=== PATIENT | female | born 1950 | race Caucasian/White ===

== ENCOUNTER 2016-09-20 08:26 | Emergency (ER) | payer OTHER ==
[~2016-09-20] VITALS: Ht 152.4 cm; Wt 67.8 kg
[~2016-09-20 08:26] MED LIST: AMLO-110 PO; ATEN-173 PO; CALC1TAB56 PO; MISCTAB88 PO; NSNN50; PROB1TAB16 PO; PYRI100T4 PO; SALINE NASAL SPRAY INH; [UNRECOGNIZED DRUG - OTHER] PO
[2016-09-20 08:32] VITALS: TEMP 37.1; Ht 152.4 cm; Wt 67.8 kg
--- NOTE | 2016-09-20 08:56 | EMERGENCY ROOM VISIT NOTE ---
History Report prepared by Rianna: Will Lockwood Under the Supervision of: Dr. Cali Barrientos M.D. First contact with patient: 08:45 Chief Complaint: GI ASSESSMENT Stated Complaint: DIARRHEA/PAIN Nursing Triage Summary: pt reports loose stools intermittenly since the week before Surekha Saw PCP and told it was "GI bug" Pt reports last night she had loose stool with a little but of dark red blood History of Present Illness The patient is a 65 year old female who presents to the Emergency Room with complaints of persistent diarrhea for the past three weeks. The patient describes her stools as loose but not totally watery. The patient had a loose stool last night that contained blood. The patient has also been intermittently nauseous. She denies any fevers, chills, vomiting, or urinary symptoms. The patient has been able to eat and drink. She saw her PCP two weeks ago, who told her that she had a GI bug. She was told to drink a lot of fluids and take Imodium, which she has been doing. She was also told to consume a bland diet. The patient has not noticed a flare up of her symptoms after eating specific food groups. The patient has a history of diverticulosis. She has never had a diverticulitis episode. The patient follows up with Dr. Cortes, [employer] , for her diverticulosis. Source of History: patient Onset: three weeks Position: other (GI) Quality: other (loose stools) Timing: other (persistent) Associated Symptoms: + nausea, No chills, No fevers, No urinary symptoms, No vomiting Note: There was some blood in a stool last night. Review of Systems All systems have been listed, reviewed, and are negative other than those previously mentioned. Please see Additional Medical History Sheet. Past Medical & Surgical Medical Problems: (1) Hypertension Nos (2) Pneumonia, Organism Nos Surgical Problems: (1) H/O oophorectomy Family History Hypertension Pneumonia Stroke Social History Smoking Status: Never Smoker Alcohol Use: none Marital Status: single Housing Status: lives alone Occupation Status: employed Current/Historical Medications Scheduled Amlodipine (Norvasc), 5 MG PO HS Atenolol (Tenormin), 25 MG PO HS Calcium-Magnesium W/ Vitamin D (Citracal Calcium+D Slow R), 1 TAB PO QAM Misc Natural Products (Osteo Bi-Flex Triple Stre), 1 TAB PO QAM Mometasone Furoate (Nasal) (Nasonex), 2 SPRAY NA QAM Probiotic Product (Probiotic), 1 TAB PO BID Pyridoxine (Vitamin B6), 100 MG PO QAM [Stress Tab Vit], 1 TAB PO QAM Scheduled PRN [Saline Nasal [place]], 1 SPRAY INH DAILY PRN for PRN Allergies Coded Allergies: Penicillins (Verified Allergy, Mild, OTHER, 09/20/16) Sulfa Drugs (Verified Allergy, Mild, OTHER, 09/20/16) Erythromycin (Verified Allergy, Unknown, GI UPSET, 09/20/16) Moxifloxacin (Verified Allergy, Unknown, itching, 09/20/16) Physical Exam Vital Signs Date Time Temp Pulse Resp B/P Pulse Ox O2 Delivery O2 Flow Rate FiO2 09/20/16 12:57 71 18 148/81 96 09/20/16 10:17 65 18 153/72 96 Room Air 09/20/16 08:32 37.1 69 18 156/80 96 Room Air Physical Exam GENERAL: Patient awake, alert, oriented x 3. Patient follows commands. Patient does not appear toxic. Patient is adequately hydrated and well- nourished. SKIN: No erythema, pallor, cyanosis or rash HEENT: Normal head, pupils equal, reactive to light and accommodation. Oral cavity and posterior pharynx appear normal. Neck: Without adenopathy, no neck vein distention. LUNGS: Clear to auscultation. No wheezes, no rales, no rhonchi. HEART: No murmurs. No gallops. No rubs ABDOMEN: No masses, no rebound, no hepatomegaly or splenomegaly. EXTREMITIES: No signs of trauma. No pedal or pretibial edema. No calf or thigh tenderness. NEUROLOGIC: Cranial nerves II-XII within normal limits. No gross motor sensory function deficits. Medical Decision & Procedures Laboratory Results 09/20/16 08:50 09/20/16 08:50 Test 09/20/16 08:50 09/20/16 09:35 Red Blood Count 5.06 M/uL (4.2-5.4) Mean Corpuscular Volume 90.9 fL (80-100) Mean Corpuscular Hemoglobin 32.4 pg (25-34) Mean Corpuscular Hemoglobin Concent 35.7 g/dl (32-36) RDW Standard Deviation 43.2 fL (36.4-46.3) RDW Coefficient of Variation 13.1 % (11.5-14.5) Mean Platelet Volume 9.8 fL (7.4-10.4) Anion Gap 10.0 mmol/L (3-11) Est Creatinine Clear Calc Drug Dose 62.6 ml/min Estimated GFR () 93.9 Estimated GFR (Non- 81.0 BUN/Creatinine Ratio 19.1 (10-20) Calcium Level 9.5 mg/dl (8.5-10.1) Urine Color YELLOW Urine Appearance CLEAR (CLEAR) Urine pH 7.0 (4.5-7.5) Urine Specific [place] 1.011 (1.000-1.030) Urine Protein NEG (NEG) Urine Glucose (UA) NEG (NEG) Urine Ketones NEG (NEG) Urine Occult Blood NEG (NEG) Urine Nitrite NEG (NEG) Urine Bilirubin NEG (NEG) Urine Urobilinogen NEG (NEG) Urine Leukocyte Esterase NEG (NEG) Laboratory results as stated above per my review. ED Course 0846: Past medical records reviewed. The patient was evaluated in room B7. A complete history and physical examination was performed. 1116: The patient has not been able to have a bowel movement since she arrived. She will get something to eat. 1250: The patient was not able to have a bowel movement. She was be discharged with a stool specimen container. Medical Decision I considered multiple diagnoses including viral vs bacterial gastroenteritis, metabolic disorder, UTI, dehydration, diverticulitis. Labs and urinalysis were obtained. The patient was unable to provide a stool specimen. She will be sent home with a specimen container. The patient has had Campylobacter in the past and this may be another episode of the same. It is also likely that she has a viral cause for her symptoms. There will be no change in her medications at this point. We await the culture and C. difficile antigen. The patient is to follow-up with her family physician. Impression Primary Impression: Diarrhea Scribe Attestation The scribe's documentation has been prepared under my direction and personally reviewed by me in its entirety. I confirm that the note above accurately reflects all work, treatment, procedures, and medical decision making performed by me. Departure Information Dispostion Home / Self-Care Referrals Krys Hobson (PCP) Forms HOME CARE DOCUMENTATION FORM, IMPORTANT VISIT INFORMATION Patient Instructions A Signature Page, My [facility] [employer] Additional Instructions Drink extra fluids. Bring in a stool specimen as soon as possible. Follow-up with your family physician.
[2016-09-20 09:17] LABS: MEAN CELL VOLUME 90.9 fL (80-100); MEAN CORPUSCULAR HEMOGLOBIN 32.4 pg (25-34); MEAN CORPUSCULAR HGB CONC 35.7 g/dl (32-36); MEAN PLATELET VOLUME 9.8 fL (7.4-10.4); PLATELET COUNT 266 K/uL (130-400); RED BLOOD COUNT 5.06 M/uL (4.2-5.4); WHITE BLOOD COUNT 7.11 K/uL (4.8-10.8)
[2016-09-20 09:32] LABS: BUN/CREATININE RATIO 19.1 (10-20); CALCIUM 9.5 mg/dl (8.5-10.1); CREATININE 0.77 mg/dl (0.60-1.20); POTASSIUM 4.1 mmol/L (3.5-5.1)
[2016-09-20 09:48] LABS: URINE APPEARANCE CLEAR (CLEAR); URINE BILIRUBIN NEG (NEG); URINE COLOR YELLOW; URINE NITRITE NEG (NEG); URINE SPECIFIC GRAVITY 1.011 (1.000-1.030); UROBILINOGEN NEG (NEG); ZZUR CULT IF INDIC CLEAN CATCH NO
[2016-09-20 09:51] LABS: MANUAL MICROSCOPIC REQUIRED? NO; REVIEW REQ? NO
[2016-09-20 12:57] VITALS: BP 148/81; PULSE 71; O2SAT 96
== END 2016-09-20 12:58 | disposition home or self-care (01) ==
LOC: C.EDB 08:27
DX: R19.7 Diarrhea, unspecified (principal); I10 Essential (primary) hypertension; Z87.01 Personal history of pneumonia (recurrent); Z98.890 Other specified postprocedural states; Z82.49 Family history of ischemic heart disease and other diseases of the circulatory system; Z82.3 Family history of stroke; Z88.0 Allergy status to penicillin; Z88.2 Allergy status to sulfonamides

== ENCOUNTER → 2016-09-23 | Outpatient (CLI) | payer OTHER ==
[~2016-09-23] MED LIST changes: +CEPH500C PO; +MOME6000 NAE; +MULTTAB94 PO; +PHEN-876 PO; +SALI0.6510
== END | disposition home or self-care (01) ==
LOC: C.LABSPEC 10:21
PROVIDERS: ATTEND Emergency Medicine
DX: R19.7 Diarrhea, unspecified (principal)

== ENCOUNTER 2016-11-03 00:06 | Emergency (ER) | payer OTHER ==
[~2016-11-03] VITALS: Ht 152.4 cm; Wt 68.8 kg
[~2016-11-03 00:06] MED LIST changes: -CEPH500C PO; -MOME6000 NAE; -MULTTAB94 PO; -PHEN-876 PO; -SALI0.6510
[2016-11-03 00:14] VITALS: TEMP 37.5; Ht 152.4 cm; Wt 68.8 kg
[2016-11-03 02:12] LABS: BASO % 0.2 %; BASO ABS # 0.02 K/uL (0-0.2); COMPLETE YES; EOS % 1.2 %; IG% 0.2 %; LYMPH % 19.7 %; LYMPH ABS # 1.62 K/uL (1.2-3.4); MEAN CELL VOLUME 93.8 fL (80-100); MEAN CORPUSCULAR HEMOGLOBIN 32.5 pg (25-34); MEAN CORPUSCULAR HGB CONC 34.7 g/dl (32-36); MEAN PLATELET VOLUME 9.6 fL (7.4-10.4); MONO % 7.7 %; PLATELET COUNT 325 K/uL (130-400); WHITE BLOOD COUNT 8.21 K/uL (4.8-10.8)
[2016-11-03 02:16] LABS: ALT/SGPT 38 U/L (12-78); AST/SGOT 24 U/L (15-37); BLOOD UREA NITROGEN 24 mg/dl (7-18); CALCIUM 8.5 mg/dl (8.5-10.1); CARBON DIOXIDE 28 mmol/L (21-32); CHLORIDE 109 mmol/L (98-107); CREATININE 0.97 mg/dl (0.60-1.20); GLUCOSE 187 mg/dl (70-99); POTASSIUM 4.3 mmol/L (3.5-5.1); SODIUM 145 mmol/L (136-145)
[2016-11-03 02:27] LABS: ALKALINE PHOSPHATASE 75 U/L (45-117); CKMB/CK RATIO 2.1 (0-3.0)
[2016-11-03] MEDS ORDERED: SALI0.6510 (02:35)
[2016-11-03] MEDS ORDERED: MOME6000 NAE (02:35)
[2016-11-03] MEDS ORDERED: MULTTAB94 PO (02:36)
[2016-11-03] MEDS ORDERED: SODIUM CHLORIDE 0.9% 500ML 500 ML IV STA (04:29)
--- NOTE | 2016-11-03 06:04 | EMERGENCY ROOM VISIT NOTE ---
History Report prepared by Rianna: Raz Avendaño Under the Supervision of: Dr. Ladi Santos D.O. First contact with patient: 01:34 Chief Complaint: IRREGULAR HEARTBEAT Stated Complaint: IRRATIC HEARTBEAT,EXCITEABILITY Nursing Triage Summary: pt c/o irregular heart beat around 2100 tonight which has resolved, pt states a couple weeks ago had upper resp infection andhad antibiotics took all of them and 3 days after the end of them she developed a low grade fever and cough History of Present Illness The patient is a 65 year old female who presents to the Emergency Room with complaints of an episode of heart palpitations occurring shortly prior to arrival. She states that she went through her day today as normal, and began experiencing her symptoms shortly before she went to bed. She notes that she felt extremely "nervous" and "jumpy". The patient has a history of similar symptoms. She notes that she has been getting over a URI recently and finished her second antibiotic treatment a little over a week ago. Her symptoms included a cough and fever. She states that she continues to have her cough. The patient also complains of abnormal sensations in her throat. She denies any abdominal pain, abnormal SOB, or chest pain. Source of History: patient Onset: Shortly prior to arrival Quality: other (palpitations) Timing: other (episode) Associated Symptoms: + cough, No SOB, No abdominal pain, No chest pain Note: The patient also complains of abnormal sensations in her throat. Review of Systems See HPI for pertinent positives & negatives. A total of 10 systems reviewed and were otherwise negative. Past Medical & Surgical Medical Problems: (1) Hypertension Nos (2) Pneumonia, Organism Nos Surgical Problems: (1) H/O oophorectomy Family History Hypertension Pneumonia Stroke Social History Smoking Status: Never Smoker Alcohol Use: none Marital Status: single Housing Status: lives alone Occupation Status: employed Current/Historical Medications Scheduled Amlodipine (Norvasc), 5 MG PO HS Atenolol (Tenormin), 25 MG PO HS Calcium-Magnesium W/ Vitamin D (Citracal Calcium+D Slow R), 1 TAB PO QAM Misc Natural Products (Osteo Bi-Flex Triple Stre), 1 TAB PO QAM Mometasone Furoate (Nasal) (Mometasone Furoate), 2 SPRAYS VICENTA DAILY Multiple Vitamin (Stress Formula), 1 TAB PO DAILY Probiotic Product (Probiotic), 1 TAB PO BID Pyridoxine (Vitamin B6), 100 MG PO QAM Scheduled PRN Saline ([employer] Nasal [place]), 1 SPRAYS NA UD PRN for Nasal Congestion Allergies Coded Allergies: Penicillins (Verified Allergy, Mild, OTHER, 11/03/16) Sulfa Drugs (Verified Allergy, Mild, OTHER, 11/03/16) Erythromycin (Verified Allergy, Unknown, GI UPSET, 11/03/16) Moxifloxacin (Verified Allergy, Unknown, itching, 11/03/16) Physical Exam Vital Signs Date Time Temp Pulse Resp B/P Pulse Ox O2 Delivery O2 Flow Rate FiO2 11/03/16 06:17 72 18 124/84 98 11/03/16 05:37 69 16 130/73 96 Room Air 11/03/16 04:00 79 18 151/68 93 Room Air 11/03/16 03:30 79 18 106/58 98 Room Air 11/03/16 01:23 89 11/03/16 01:18 89 18 143/81 96 Room Air 11/03/16 00:14 37.5 93 18 149/76 95 Room Air Physical Exam HEENT: Head - normocephalic and atraumatic Pupils are equal, round, and reactive to light. Extraocular eye muscles are intact, and sclera are anicteric. Nose - moist nasal mucosa without discharge. Mouth - moist buccal mucosa. Oropharynx is nonerythematous and there is no tonsillar exudate or edema noted. Neck: Supple; no JVD, nuchal rigidity, cervical lymphadenopathy, or auscultated bruits. Heart: Regular rate and rhythm. There is a normal S1 and S2 with no murmurs, clicks, or gallops appreciated. Lungs: Clear to auscultation bilaterally with no wheezes, rales, or rhonchi. Abdomen: Soft, completely nontender, nondistended, with good bowel sounds. There are no palpable pulsatile masses or hepatosplenomegaly. There is no guarding, rigidity, or rebound noted. Extremities: No evidence of cyanosis, clubbing, or edema. There are easily palpable peripheral pulses. Skin: warm and dry with good turgor and no rashes. Medical Decision & Procedures ER Provider Diagnostic Interpretation: Two View Chest X-ray interpreted by me: No pulmonary infiltrates. No pleural effusions. Unchanged from previous films. Laboratory Results 11/03/16 01:27 Red Blood Count 4.80, Mean Corpuscular Volume 93.8, Mean Corpuscular Hemoglobin 32.5, Mean Corpuscular Hemoglobin Concent 34.7, Mean Platelet Volume 9.6, Neutrophils (%) (Auto) 71.0, Lymphocytes (%) (Auto) 19.7, Monocytes (%) (Auto) 7.7, Eosinophils (%) (Auto) 1.2, Basophils (%) (Auto) 0.2, Neutrophils # (Auto) 5.82, Lymphocytes # (Auto) 1.62, Monocytes # (Auto) 0.63, Eosinophils # (Auto) 0.10, Basophils # (Auto) 0.02 11/03/16 01:27 Test 11/03/16 01:27 White Blood Count 8.21 K/uL (4.8-10.8) Red Blood Count 4.80 M/uL (4.2-5.4) Hemoglobin 15.6 g/dL (12.0-16.0) Hematocrit 45.0 % (37-47) Mean Corpuscular Volume 93.8 fL (80-100) Mean Corpuscular Hemoglobin 32.5 pg (25-34) Mean Corpuscular Hemoglobin Concent 34.7 g/dl (32-36) Platelet Count 325 K/uL (130-400) Mean Platelet Volume 9.6 fL (7.4-10.4) Neutrophils (%) (Auto) 71.0 % Lymphocytes (%) (Auto) 19.7 % Monocytes (%) (Auto) 7.7 % Eosinophils (%) (Auto) 1.2 % Basophils (%) (Auto) 0.2 % Neutrophils # (Auto) 5.82 K/uL (1.4-6.5) Lymphocytes # (Auto) 1.62 K/uL (1.2-3.4) Monocytes # (Auto) 0.63 K/uL (0.11-0.59) Eosinophils # (Auto) 0.10 K/uL (0-0.5) Basophils # (Auto) 0.02 K/uL (0-0.2) RDW Standard Deviation 45.1 fL (36.4-46.3) RDW Coefficient of Variation 13.1 % (11.5-14.5) Immature Granulocyte % (Auto) 0.2 % Immature Granulocyte # (Auto) 0.02 K/uL (0.00-0.02) Anion Gap 8.0 mmol/L (3-11) Est Creatinine Clear Calc Drug Dose 50.0 ml/min Estimated GFR () 71.0 Estimated GFR (Non- 61.3 BUN/Creatinine Ratio 25.0 (10-20) Calcium Level 8.5 mg/dl (8.5-10.1) Total Bilirubin 0.3 mg/dl (0.2-1) Direct Bilirubin 0.1 mg/dl (0-0.2) Aspartate Amino Transf (AST/SGOT) 24 U/L (15-37) Alanine Aminotransferase (ALT/SGPT) 38 U/L (12-78) Alkaline Phosphatase 75 U/L (45-117) Total Creatine Kinase 179 U/L (26-192) Creatine Kinase MB 3.7 ng/ml (0.5-3.6) Creatine Kinase MB Ratio 2.1 (0-3.0) Troponin I < 0.015 ng/ml (0-0.045) Pro-B-Type Natriuretic Peptide 316 pg/ml (0-900) Total Protein 6.7 gm/dl (6.4-8.2) Albumin 3.6 gm/dl (3.4-5.0) Thyroid Stimulating Hormone (TSH) 1.270 uIu/ml (0.300-4.500) Laboratory results per my review. Medications Administered Medications (Trade) Dose Ordered Sig/Taty Route Start Time Stop Time Status Last Admin Dose Admin Sodium Chloride (Nss 500ml) 500 ml @ 999 mls/hr Q31M STAT IV 11/03/16 04:29 11/03/16 04:59 DC 11/03/16 04:35 999 MLS/HR Procedure Medications include: NSS IV. ECG Indication: palpitations Rate (beats per minute): 97 Rhythm: normal sinus Findings: no acute ischemic change, no ectopy ED Course 0146: Past medical records reviewed. The patient was evaluated in room A2. A complete history and physical exam was performed. An IV lock was initiated and labs are drawn as above. Twelve-lead EKG was obtained as described above. A chest x-ray was obtained 0429: Ordered NSS 500 mL @ 999 mL/hr IV. 0432: I reassessed the patient. She is feeling better. She notes that she has a history of borderline diabetes. 0440: I discussed findings and results with the patient. She verbalized agreement of the treatment plan. The patient was discharged home. Medical Decision The patient is a 65 year old female who presents to the ED with an episode of heart palpitations. Differential diagnosis includes dehydration, cardiac dysrhythmia, CHF, anxiety, as well as other etiologies were considered. Laboratory studies: Normal white count. Stable H&H. Glucose of 187. BUN of 24. Creatinine of 0.9. LFTs are normal. TSH and cardiac enzymes are normal. This is a 65-year-old female patient who presents with palpitations. She does admit to some anxiety. She has had a cough for the past month. She has taken 2 courses of antibiotics with no relief. The patient was noted to be hyperglycemic by laboratory testing. I have asked her to follow-up with her PCP for a fasting blood sugar and hemoglobin A1c. The patient was also encouraged to take more clear liquids to avoid dehydration. She was told to return here to the emergency department if symptoms worsened. Impression Primary Impression: Palpitation Additional Impression: Hyperglycemia Scribe Attestation The scribe's documentation has been prepared under my direction and personally reviewed by me in its entirety. I confirm that the note above accurately reflects all work, treatment, procedures, and medical decision making performed by me. Departure Information Dispostion Home / Self-Care Referrals Krys Hobson (PCP) Forms HOME CARE DOCUMENTATION FORM, IMPORTANT VISIT INFORMATION Patient Instructions ED Hyperglycemia New Susp Diabetes, ED Palpitations, My [facility] Additional Instructions Rest. Take plenty of clear liquids Follow up with PCP for a fasting blood sugar. Return to the ER for worsening symptoms Problem Qualifiers
[2016-11-03 06:17] VITALS: BP 124/84; PULSE 72; O2SAT 98
--- NOTE | 2016-11-03 07:40 | DIAGNOSTIC IMAGING REPORT ---
CHEST 2 VIEWS ROUTINE CLINICAL HISTORY: Shortness of breath COMPARISON STUDY: 07/08/2013 FINDINGS: The chest has an emphysematous configuration. The heart is normal in size. There is an air-containing retrocardiac opacity consistent with a hiatal hernia. There is no lobar consolidation. There are areas of subsegmental atelectasis within the right middle lobe and lingula.[ IMPRESSION: 1. Emphysema 2. Hiatal hernia 3. Bilateral atelectatic changes 4. No evidence of lobar consolidation Electronically signed by: Dimitry Parker M.D. 11/03/2016 7:39 AM Dictated Date/Time: 11/03/2016 7:38 AM
== END 2016-11-03 06:18 | disposition home or self-care (01) ==
LOC: C.ED 00:07 → C.EDA 06:18
DX: R00.2 Palpitations (principal); R73.9 Hyperglycemia, unspecified; Z87.01 Personal history of pneumonia (recurrent); I10 Essential (primary) hypertension; Z90.721 Acquired absence of ovaries, unilateral; Z82.49 Family history of ischemic heart disease and other diseases of the circulatory system; Z82.3 Family history of stroke; Z88.0 Allergy status to penicillin; Z88.2 Allergy status to sulfonamides; Z88.1 Allergy status to other antibiotic agents

== ENCOUNTER → 2016-11-06 | Outpatient (CLI) | payer OTHER ==
[~2016-11-06] MED LIST changes: +CEPH500C PO; +MOME6000 NAE; +MULTTAB94 PO; -NSNN50; +PHEN-876 PO; +SALI0.6510; -SALINE NASAL SPRAY INH; -[UNRECOGNIZED DRUG - OTHER] PO
[2016-11-06 12:34] LABS: ESTIMATED AVERAGE GLUCOSE 137 mg/dl; HA1C FLAG Normal (Normal)
== END | disposition home or self-care (01) ==
LOC: C.LABPVFM 07:35
PROVIDERS: ATTEND Internal Medicine
DX: R73.9 Hyperglycemia, unspecified (principal)

== ENCOUNTER 2017-05-02 11:13 | Emergency (ER) | payer OTHER ==
[~2017-05-02] VITALS: Ht 152.4 cm; Wt 67.0 kg
[~2017-05-02 11:13] MED LIST changes: -CEPH500C PO; -PHEN-876 PO
[2017-05-02 11:19] VITALS: Ht 152.4 cm; Wt 67.0 kg
[2017-05-02] MEDS ORDERED: PHENAZOPYRIDINE HCL 200 MG TAB PO STA (11:31)
--- NOTE | 2017-05-02 11:39 | EMERGENCY ROOM VISIT NOTE ---
History Report prepared by Rianna: Arianna Barron Under the Supervision of: Dr. Valdez Heaton M.D. First contact with patient: 11:25 Chief Complaint: URINARY SYMPTOMS Stated Complaint: FREQUENT URINATION/BLEEDING Nursing Triage Summary: Urinary frequency, burning, and hematuria. History of Present Illness The patient is a 66 year old female who presents to the Emergency Room with complaints of persistent, worsening urinary symptoms that began nine hours ago. The patient reports that she woke around 0200 this morning and began experiencing urinary frequency. She states that the frequency and urgency continued to worsen to going every 30 minutes. The patient states that she had the sensation that she needed to urinate, but could not. She additionally reports noticing blood on her tissue with wiping and some in the toilet. The patient reports burning with urination. She denies taking anything for her symptoms. The patient denies any fever, nausea, vomiting, or back pain. She denies getting UTIs often. The patient states that she has had elevated blood glucose tests in the past but denies being diagnosed diabetic. She states that she was recently treated for an upper respiratory infection in March, but denies being on any current antibiotics. Source of History: patient Onset: nine hours ago Position: other (global) Quality: other (urinary symptoms) Timing: worsening, other (persistent) Associated Symptoms: No fevers Review of Systems See HPI for pertinent positives & negatives. A total of 10 systems reviewed and were otherwise negative. Past Medical & Surgical Medical Problems: (1) Hypertension Nos (2) Pneumonia, Organism Nos Surgical Problems: (1) H/O oophorectomy Family History Hypertension Pneumonia Stroke Social History Smoking Status: Never Smoker Alcohol Use: none Marital Status: single Housing Status: lives alone Occupation Status: employed Current/Historical Medications Scheduled Amlodipine (Norvasc), 5 MG PO HS Atenolol (Tenormin), 25 MG PO HS Calcium-Magnesium W/ Vitamin D (Citracal Calcium+D Slow R), 1 TAB PO QAM Cephalexin Monohydrate (Keflex), 500 MG PO TID Misc Natural Products (Osteo Bi-Flex Triple Stre), 1 TAB PO QAM Mometasone Furoate (Nasal) (Mometasone Furoate), 2 SPRAYS VICENTA DAILY Multiple Vitamin (Stress Formula), 1 TAB PO DAILY Probiotic Product (Probiotic), 1 TAB PO BID Pyridoxine (Vitamin B6), 100 MG PO QAM Scheduled PRN Phenazopyridine HCl (Pyridium), 200 MG PO TID PRN for Frequency/Burning w/ Urination Saline ([place] Nasal [place]), 1 SPRAYS NA UD PRN for Nasal Congestion Allergies Coded Allergies: Penicillins (Verified Allergy, Mild, OTHER, 11/03/16) Sulfa Drugs (Verified Allergy, Mild, OTHER, 11/03/16) Erythromycin (Verified Allergy, Unknown, GI UPSET, 11/03/16) Moxifloxacin (Verified Allergy, Unknown, itching, 11/03/16) Physical Exam Vital Signs Date Time Temp Pulse Resp B/P (MAP) Pulse Ox O2 Delivery O2 Flow Rate FiO2 05/02/17 12:04 36.8 70 18 166/70 96 05/02/17 11:19 36.8 70 18 166/70 96 Room Air Physical Exam GENERAL: Patient is in no acute distress. HEENT: No acute trauma, normocephalic atraumatic, mucous membranes moist, no nasal congestion, no scleral icterus. NECK: No stridor, no adenopathy, no meningismus, trachea is midline. LUNGS: Clear to auscultation bilaterally, no wheeze, no rhonchi, breath sounds equal. HEART: Without murmurs gallops or rubs, regular rate and rhythm. ABDOMEN: Soft, nontender, bowel sounds positive, no hernias, no peritonitis. BACK: No flank discomfort with percussion EXTREMITIES: No cyanosis or edema, full range of motion of all the joints without pain or difficulty, no signs for acute trauma. NEUROLOGIC: Oriented x 3, no acute motor or sensory deficits, no focal weakness. SKIN: No rash, no jaundice, no diaphoresis. Medical Decision & Procedures Laboratory Results Test 05/02/17 11:20 Urine Color DK YELLOW Urine Appearance TURBID (CLEAR) Urine pH 5.0 (4.5-7.5) Urine Specific [place] 1.026 (1.000-1.030) Urine Protein 1+ (NEG) Urine Glucose (UA) NEG (NEG) Urine Ketones TRACE (NEG) Urine Occult Blood 3+ (NEG) Urine Nitrite POS (NEG) Urine Bilirubin NEG (NEG) Urine Urobilinogen NEG (NEG) Urine Leukocyte Esterase LARGE (NEG) Urine WBC (Auto) >30 /hpf (0-5) Urine RBC (Auto) >30 /hpf (0-4) Urine Hyaline Casts (Auto) 5-10 /lpf (0-5) Urine Epithelial Cells (Auto) 10-20 /lpf (0-5) Urine Bacteria (Auto) 1+ (NEG) Laboratory results reviewed by me. Medications Administered Medications (Trade) Dose Ordered Sig/Taty Route Start Time Stop Time Status Last Admin Dose Admin Phenazopyridine HCl (Pyridium Tab) 200 mg NOW STAT PO 05/02/17 11:31 05/02/17 11:33 DC 05/02/17 12:04 200 MG Cephalexin Monohydrate (Keflex Cap) 500 mg NOW STAT PO 05/02/17 11:55 05/02/17 11:57 DC 05/02/17 12:04 500 MG ED Course 1130: The patient was evaluated in room C1B. A complete history and physical exam was performed. 1131: Ordered Pyridium Tab 200 mg PO. 1153: I reevaluated the patient and she is resting. I discussed the exam findings with her and I discussed the treatment plan. She verbalized complete understanding and agreement. She is ready to go home. 1155: Ordered Keflex Cap 500 mg PO. Medical Decision The patient is a 66 year old female who presents to the ED with complaints of urinary symptoms. Differential diagnoses considered include UTI, diverticulitis , vaginal irritation, pyelonephritis, renal failure. The patient presents with urinary burning and frequency. Urinalysis suggests infection, urine culture is pending. The patient is not vomiting, there is no fever, she is not having back pain. The patient was given oral Pyridium and oral Keflex. She is being discharged on the same, if worsening, she can return. Medication Reconcilliation Current Medication List: was personally reviewed by me Blood Pressure Screening Patient's blood pressure: Elevated blood pressure Blood pressure disposition: Elevated BP felt to be situational, Did not require urgent referral Impression Primary Impression: UTI (urinary tract infection) Additional Impression: Hematuria Scribe Attestation The scribe's documentation has been prepared under my direction and personally reviewed by me in its entirety. I confirm that the note above accurately reflects all work, treatment, procedures, and medical decision making performed by me. Departure Information Dispostion Home / Self-Care Prescriptions Phenazopyridine HCl (Pyridium) 200 Mg Tab 200 MG PO TID Y for Frequency/Burning w/Urination, #6 TAB Prov: Valdez Heaton M.D. 05/02/17 Cephalexin Monohydrate (Keflex) 500 Mg Cap 500 MG PO TID for 7 Days, #21 CAP Prov: Valdez Heaton M.D. 05/02/17 Referrals Ginette Baca (PCP) Forms HOME CARE DOCUMENTATION FORM, IMPORTANT VISIT INFORMATION Patient Instructions My [facility] Additional Instructions fluids pyridium 3x per day for the burning and frequency kelex 3x per day for 1 week return if worsening return for fever, vomiting or if not improving Problem Qualifiers
[2017-05-02 11:44] LABS: URINE APPEARANCE TURBID (CLEAR); URINE BILIRUBIN NEG (NEG); URINE COLOR DK YELLOW; URINE NITRITE POS (NEG); URINE SPECIFIC GRAVITY 1.026 (1.000-1.030); UROBILINOGEN NEG (NEG); ZZUR CULT IF INDIC CLEAN CATCH YES
[2017-05-02 11:47] LABS: MANUAL MICROSCOPIC REQUIRED? NO; REVIEW REQ? NO
[2017-05-02] MEDS ORDERED: CEPHALEXIN MONOHYDRATE 250 MG CAP PO STA (11:55)
[2017-05-02] MEDS ORDERED: PHEN-876 PO (11:57)
[2017-05-02] MEDS ORDERED: CEPH500C PO (11:57)
[2017-05-02 12:04] VITALS: BP 166/70; PULSE 70; TEMP 36.8; O2SAT 96
== END 2017-05-02 12:05 | disposition home or self-care (01) ==
LOC: C.EDB 11:15 → C.EDC 12:05
DX: N39.0 Urinary tract infection, site not specified (principal); I10 Essential (primary) hypertension; Z87.01 Personal history of pneumonia (recurrent); Z90.722 Acquired absence of ovaries, bilateral; Z82.49 Family history of ischemic heart disease and other diseases of the circulatory system; Z82.3 Family history of stroke; Z79.899 Other long term (current) drug therapy

== ENCOUNTER → 2017-08-06 | Outpatient (CLI) | payer OTHER ==
[~2017-08-06] MED LIST changes: +PHEN-876 PO
== END | disposition home or self-care (01) ==
LOC: C.LABPVFM 12:52
PROVIDERS: ATTEND Physician Assistant
DX: R15.2 Fecal urgency (principal)

== ENCOUNTER → 2017-08-15 | Outpatient (CLI) | payer OTHER ==
[2017-08-15 12:49] LABS: BLOOD UREA NITROGEN 17 mg/dl (7-18); BUN/CREATININE RATIO 19.6 (10-20); CARBON DIOXIDE 32 mmol/L (21-32); CHLORIDE 105 mmol/L (98-107); CHOLESTEROL 176 mg/dl (0-200); CREATININE 0.88 mg/dl (0.60-1.20); GLUCOSE 123 mg/dl (70-99); POTASSIUM 4.1 mmol/L (3.5-5.1); SODIUM 139 mmol/L (136-145)
[2017-08-15 12:52] LABS: CHOLESTEROL/HDL RATIO 2.7; HDL CHOLESTEROL 65 mg/dl; LDL CHOLESTEROL CALCULATED 89 mg/dl; TRIGLYCERIDES 112 mg/dl (0-150); VERY LOW DENSITY LIPOPROT CALC 22 mg/dl
[2017-08-15 12:56] LABS: ESTIMATED AVERAGE GLUCOSE 128 mg/dl; HA1C FLAG Normal (Normal)
== END | disposition home or self-care (01) ==
LOC: C.LABPVFM 10:13
PROVIDERS: ATTEND Nurse Practitioner
DX: I49.9 Cardiac arrhythmia, unspecified (principal); R73.01 Impaired fasting glucose

== ENCOUNTER → 2017-08-24 | Outpatient (CLI) | payer OTHER | END | disposition home or self-care (01) | LOC: C.LABPVFM 11:49 | PROVIDERS: ATTEND Physician Assistant | DX: R19.7 Diarrhea, unspecified (principal) ==

== ENCOUNTER 2017-09-08 17:01 | Emergency (ER) | payer OTHER ==
[~2017-09-08] VITALS: Ht 152.4 cm; Wt 66.2 kg
[~2017-09-08 17:01] MED LIST changes: -AMLO-110 PO; +AMLO5TAB3 PO
[2017-09-08 17:03] VITALS: BP 162/81; PULSE 81; TEMP 37.1; O2SAT 96; Ht 152.4 cm; Wt 66.2 kg
--- NOTE | 2017-09-08 17:26 | EMERGENCY ROOM VISIT NOTE ---
History First contact with patient: 17:08 Chief Complaint: FALL Stated Complaint: FALL, HIT BACK AND HEAD History of Present Illness The patient is a 66 year old female who presents to the Emergency Room with complaints of back pain after having a fall prior to arrival. The patient slipped on a wooden floor landing flat on her back. She denies hitting her head. There is no loss of consciousness. The fall knocked the wind out of her. She currently denies any shortness of breath, but it is painful to take a deep breath. She denies any headache or neck pain. She is having pain over the mid back. She denies any low back pain. No abdominal pain. She denies any pain in her extremities. Review of Systems 6 system review negative. Please see pertinent positives in the history of present illness section. Past Medical/Surgical History Medical Problems: (1) Hypertension Nos (2) Pneumonia, Organism Nos Surgical Problems: (1) H/O oophorectomy Family History Hypertension Pneumonia Stroke Social History Smoking Status: Never Smoker Alcohol Use: none Marital Status: single Housing Status: lives alone Occupation Status: employed Current/Historical Medications Scheduled Amlodipine (Norvasc), 5 MG PO HS Atenolol (Tenormin), 25 MG PO HS Calcium-Magnesium W/ Vitamin D (Citracal Calcium+D Slow R), 1 TAB PO QAM Lidocaine (Lidoderm Patch 5%), 1 PATCH TD DAILY Misc Natural Products (Osteo Bi-Flex Triple Stre), 1 TAB PO QAM Mometasone Furoate (Nasal) (Mometasone Furoate), 2 SPRAYS VICENTA DAILY Multiple Vitamin (Stress Formula), 1 TAB PO DAILY Probiotic Product (Probiotic), 1 TAB PO DAILY Pyridoxine (Vitamin B6), 100 MG PO QAM Scheduled PRN Saline ([place] Nasal [place]), 1 SPRAY NA UD PRN for Nasal Congestion Tramadol (Ultram), 50 MG PO Q4H PRN for Pain Physical Exam Vital Signs Date Time Temp Pulse Resp B/P (MAP) Pulse Ox O2 Delivery O2 Flow Rate FiO2 09/08/17 17:03 37.1 81 17 162/81 96 Room Air Physical Exam VITALS: Vitals are noted on the nurse's note and reviewed by myself. Vital signs stable. GENERAL: 66-year-old female, in no acute distress, nondiaphoretic, well- developed well-nourished. SKIN: The skin was without rashes, erythema, edema, or bruising. HEAD: Normocephalic atraumatic. NECK: Full range of motion.. Cervical spine is nontender. No JVD. HEART: Regular rate and rhythm without murmurs gallops or rubs. LUNGS: Clear to auscultation bilaterally without wheezes, rales or rhonchi. No accessory muscle use. No tenderness elicited with palpation over the thorax. ABDOMEN: Positive bowel sounds x 4.Soft, nontender, without organomegaly. No guarding or rebound tenderness. MUSCULOSKELETAL: Mild tenderness to palpation over the thoracic spinous processes. Strength 5/5 throughout. NEURO: Patient was alert and oriented to person place and time. Normal sensation to touch. No focal neurological deficits. Medical Decision & Procedures ER Provider Diagnostic Interpretation: X-ray chest, bilateral ribs and thoracic spine IMPRESSION: 1. Negative right ribs. 2. Nondisplaced cortical fractures left sixth and seventh ribs. 3. Negative chest. The above report was generated using voice recognition software. It may contain grammatical, syntax or spelling errors. Patient Name: SAYDA MONTEJO Unit Number: [id number] Dictated: 09/08/171802 Transcribed: 09/08/17 180 MS Printed Date/Time: [~ rep prt dt]/[~ rep prt tm] [~ rep ct labl] - [~ rep ct ivnm] [facility] [place] [address] Dictated: 09/08/171802 Transcribed: 09/08/17 180 MS Printed Date/Time: [~ rep prt dt]/[~ rep prt tm] [~ rep ct labl] - [~ rep ct ivnm] IMPRESSION: Considerable degenerative disc change. Mild scoliosis. No acute process. Osteopenia. The above report was generated using voice recognition software. It may contain grammatical, syntax or spelling errors. Electronically signed by: Isra Hinojosa M.D. 09/08/2017 6:04 PM Dictated Date/Time: 09/08/2017 6:03 PM The status of this report is Signed. Draft = Not yet reviewed or approved by Radiologist. Signed = Reviewed and approved by Radiologist. <AttendingPhy></AttendingPhy> <FamilyPhy>Ashley Bray M.D.</FamilyPhy> < PrimaryPhy>Ashley Bray M.D.</PrimaryPhy> <UnitNumber>[id number]</UnitNumber > <VisitNumber>[id number]</VisitNumber> <PatientName>SAYDA MONTEJO</ PatientName> <DateOfBirth>1950</DateOfBirth> <Location>[facility]</Location> < ServiceDate>09/08/17</ServiceDate> <MNE>ESINDI</MNE> <OrderingPhy>Anayeli Poe PA-C</OrderingPhy> <OrderingPhyMNE>f rep ord dr mccabe</OrderingPhyMNE> < DictatingPhyMNE>f rep dict dr mccabe</DictatingPhyMNE> <CCListMNE>f rep ct mne</ CCListMNE> <AdmittingPhyMNE>f pt admit dr mccabe</AdmittingPhyMNE> <AttendingPhyMNE >f pt attend dr mccabe</AttendingPhyMNE> <ConsultingPhyMNE>f pt consult dr mccabe</ConsultingPhyMNE> <FamilyPhyMNE>f pt fam dr mccabe</FamilyPhyMNE> <OtherPhyMNE>f pt other dr mccabe</OtherPhyMNE> < PrimaryPhyMNE>f pt prim care dr mccabe</PrimaryPhyMNE> <ReferringPhyMNE>f pt referring dr mccabe</ReferringPhyMNE> Electronically signed by: Isra Hinojosa M.D. 09/08/2017 6:07 PM Dictated Date/Time: 09/08/2017 6:05 PM The status of this report is Signed. Draft = Not yet reviewed or approved by Radiologist. Signed = Reviewed and approved by Radiologist. Medications Administered Medications (Trade) Dose Ordered Sig/Taty Route Start Time Stop Time Status Last Admin Dose Admin Tramadol HCl (Ultram Home Pack) 1 homepack UD ONCE PO 09/08/17 18:45 09/08/17 18:46 DC 09/08/17 19:02 1 HOMEPACK ED Course The patient was seen and examined She declined pain medication Imaging was performed and reviewed The patient was also seen and examined by my supervising physician who is in agreement with the plan The findings were discussed with the patient. She voiced understanding. She was given a home pack of tramadol Discharge instructions were reviewed, and she was discharged in good condition Medical Decision Differential diagnosis: Contusion, fracture, pneumothorax, hemothorax This patient is a 66-year-old female that presents to the emergency department with complaints of mid back pain after sustaining a mechanical fall. I cannot find any significant signs of trauma on exam. She did not hit her head. Imaging revealed 2 nondisplaced cortical rib fractures. There is no signs of pneumothorax. Believe she is stable to be discharged home with pain medication. She is comfortable with this plan. She was urged to follow-up with her primary care physician, and return here with any new or worsening symptoms. This chart was completed in part utilizing [employer] Voice Recognition software. Attempts were made to minimize the grammatical errors, random word insertions, pronoun errors and incomplete sentences. Any formal questions or concerns about the content, text or information contained within the body of this dictation should be directly addressed to the provider for clarification. Medication Reconcilliation Current Medication List: was personally reviewed by me Blood Pressure Screening Patient's blood pressure: Elevated blood pressure Blood pressure disposition: Did not require urgent referral Impression Primary Impression: Left rib fracture Departure Information Dispostion Home / Self-Care Condition GOOD Prescriptions Lidocaine (Lidoderm Patch 5%) 1 Ea Tdsy 1 PATCH TD DAILY for 15 Days, #15 PATCH Prov: Anayeli Poe PA-C 09/08/17 Tramadol (Ultram) 50 Mg Tab 50 MG PO Q4H Y for Pain, #15 TAB Prov: Anayeli Poe PA-C 09/08/17 Referrals Ashley Bray M.D. (PCP) Patient Instructions My [facility] Additional Instructions You were evaluated in the emergency department after a fall. You did sustained 2 rib fractures. Please use the incentive spirometer a few times each hour for the next 7 days. Ibuprofen 400 mg and/or Tylenol 1000 mg every 8 hours. You may also alternate these medications for more effective pain relief: Ibuprofen --4 HRS--> Tylenol --4 HRS--> ibuprofen --4 HRS--> Tylenol .... Please use tramadol 1 tab every 4 hours for severe pain. A Lidoderm patch may be applied directly to the area that hurts once daily Please follow-up with your primary care physician within the next few days for a recheck Do not hesitate to return to the emergency department with any new, worsening or concerning symptoms; especially, severe pain or difficulty breathing
--- NOTE | 2017-09-08 18:05 | DIAGNOSTIC IMAGING REPORT ---
THORACIC SPINE 3 VIEWS ROUTINE HISTORY: Pain mid back pain COMPARISON: None. FINDINGS: There is no fracture. No subluxation. Considerable degenerative disc changes throughout. Moderate reactive osteophytic changes throughout. No evidence for compression deformity. Osteopenia. IMPRESSION: Considerable degenerative disc change. Mild scoliosis. No acute process. Osteopenia. The above report was generated using voice recognition software. It may contain grammatical, syntax or spelling errors. Electronically signed by: Isra Hinojosa M.D. 09/08/2017 6:04 PM Dictated Date/Time: 09/08/2017 6:03 PM
--- NOTE | 2017-09-08 18:08 | DIAGNOSTIC IMAGING REPORT ---
RIBS BILATERAL WITH PA CHEST CLINICAL HISTORY: posterior bilateral rib pain pain COMPARISON STUDY: 11/03/2016 FINDINGS: Small fixed lateral hernia. Otherwise negative study of the chest. Lungs are clear. Minimal chronic atelectatic change left base. Negative right ribs. Nondisplaced cortical fractures posterior left sixth and seventh ribs.. IMPRESSION: 1. Negative right ribs. 2. Nondisplaced cortical fractures left sixth and seventh ribs. 3. Negative chest. The above report was generated using voice recognition software. It may contain grammatical, syntax or spelling errors. Electronically signed by: Isra Hinojosa M.D. 09/08/2017 6:07 PM Dictated Date/Time: 09/08/2017 6:05 PM
[2017-09-08] MEDS ORDERED: NF656 TD (18:38)
[2017-09-08] MEDS ORDERED: TRAM-10 PO (18:38)
[2017-09-08] MEDS ORDERED: TRAMADOL HCL 50 MG HOME PACK PO ONE (18:45)
[2017-10-07] MEDS ORDERED: RANITAB33 PO (08:28)
[2017-10-07] MEDS ORDERED: HYOS1TAB PO (08:28)
[2017-10-07] MEDS ORDERED: SALI0.657 NAE (08:28)
[2017-10-07] MEDS ORDERED: MISCTAB88 PO (08:28)
[2017-10-07] MEDS ORDERED: ACET-1256 PO (08:29)
[2017-10-23] MEDS ORDERED: OXYC-737 PO (22:19)
[2017-12-26] MEDS ORDERED: ONDA8TAB62 SL (00:31)
[2017-12-26] MEDS ORDERED: ENOX120I SQ (00:35)
[2017-12-26] MEDS ORDERED: chemo IV (00:37)
[2017-12-26] MEDS ORDERED: APIX1TAB3 PO (15:50)
[2018-01-04] MEDS ORDERED: CHOL2000 PO (08:28)
[2018-01-15] MEDS ORDERED: LORA-741 PO (11:44)
[2018-01-15] MEDS ORDERED: NITR1CAP16 PO (11:44)
== END 2017-09-08 19:05 | disposition home or self-care (01) ==
LOC: C.EDB 17:02 → C.EDD 19:05
DX: S22.42XA Multiple fractures of ribs, left side, initial encounter for closed fracture (principal); W01.0XXA Fall on same level from slipping, tripping and stumbling without subsequent striking against object, initial encounter; Y92.9 Unspecified place or not applicable; I10 Essential (primary) hypertension; Z87.01 Personal history of pneumonia (recurrent); Z82.49 Family history of ischemic heart disease and other diseases of the circulatory system; Z79.899 Other long term (current) drug therapy

== ENCOUNTER → 2017-10-07 | Day surgery (SDC) | payer OTHER ==
[~2017-10-07] VITALS: Ht 152.4 cm; Wt 64.5 kg
[~2017-10-07] MED LIST changes: +ACET-1256 PO; +AMLO-110 PO; -AMLO5TAB3 PO; +CHOL2000 PO; +HYOS1TAB PO; +NF656 TD; -PHEN-876 PO; +RANITAB33 PO; +SALI0.657 NAE; +TRAM-10 PO
[2017-10-07 08:36] VITALS: BP 144/78; PULSE 61; TEMP 37.1; O2SAT 61; Ht 152.4 cm; Wt 64.5 kg
== END | disposition home or self-care (01) ==
LOC: C.MTU 08:02
PROVIDERS: ATTEND Internal Medicine
DX: R19.7 Diarrhea, unspecified (principal); R15.2 Fecal urgency

== ENCOUNTER → 2017-10-18 | Outpatient (CLI) | payer OTHER ==
[~2017-10-18] MED LIST changes: +ONDA4TAB10 SL; +OXYC1TAB3 PO
== END | disposition home or self-care (01) ==
LOC: C.LABPVFM 10:18
PROVIDERS: ATTEND Physician Assistant
DX: R19.7 Diarrhea, unspecified (principal)

== ENCOUNTER → 2017-10-21 | Outpatient (CLI) | payer OTHER ==
[~2017-10-21] MED LIST changes: +APIX1TAB3 PO
== END | disposition home or self-care (01) ==
LOC: C.LABPVFM 13:14
PROVIDERS: ATTEND Physician Assistant
DX: R19.7 Diarrhea, unspecified (principal)

== ENCOUNTER 2017-10-23 15:58 | Emergency (ER) | payer OTHER ==
[~2017-10-23] VITALS: Ht 152.4 cm; Wt 64.1 kg
[~2017-10-23 15:58] MED LIST changes: -APIX1TAB3 PO; -ONDA4TAB10 SL; -OXYC1TAB3 PO
[2017-10-23 16:06] VITALS: Ht 152.4 cm; Wt 64.1 kg
[2017-10-23] MEDS ORDERED: MoRPHine SULFATE 10 MG/ML CARP/VIAL IV STA (16:15)
[2017-10-23] MEDS ORDERED: ONDANSETRON INJ 2 MG/ML 2 ML VIAL IV STA (16:15)
[2017-10-23] MEDS ORDERED: OPTIRAY 320 IV PRN (16:30)
[2017-10-23 16:40] LABS: BASO % 0.2 %; BASO ABS # 0.02 K/uL (0-0.2); EOS % 0.1 %; EOS ABS # 0.01 K/uL (0-0.5); HEMATOCRIT 46.4 % (37-47); HEMOGLOBIN 16.2 g/dL (12.0-16.0); IG# 0.03 K/uL (0.00-0.02); LYMPH % 4.9 %; LYMPH ABS # 0.47 K/uL (1.2-3.4); MEAN CELL VOLUME 91.7 fL (80-100); MEAN CORPUSCULAR HGB CONC 34.9 g/dl (32-36); MEAN PLATELET VOLUME 9.2 fL (7.4-10.4); MONO % 3.8 %; MONO ABS # 0.36 K/uL (0.11-0.59); NEUT % 90.7 %; NEUT ABS # 8.71 K/uL (1.4-6.5); PLATELET COUNT 265 K/uL (130-400); RED CELL DISTRIBUTION WIDTH CV 12.8 % (11.5-14.5); RED CELL DISTRIBUTION WIDTH SD 42.7 fL (36.4-46.3)
[2017-10-23 17:15] LABS: ALBUMIN 3.7 gm/dl (3.4-5.0); CALCIUM 9.3 mg/dl (8.5-10.1); CREATININE 0.81 mg/dl (0.60-1.20); POTASSIUM 4.3 mmol/L (3.5-5.1); TOTAL PROTEIN 7.2 gm/dl (6.4-8.2)
--- NOTE | 2017-10-23 19:09 | DIAGNOSTIC IMAGING REPORT ---
ABD/PELVIS IV AND ORAL CONT CT DOSE: 370.96 mGy.cm HISTORY: Flank pain Right-sided abdominal pain TECHNIQUE: Multiaxial CT images of the abdomen and pelvis were performed following the use of intravenous and oral contrast. A dose lowering technique was utilized adhering to the principles of ALARA. COMPARISON STUDY: None. FINDINGS: Mild dependent basilar atelectasis. Upper abdominal ascites. Liver spleen and pancreas are uniform. Kidneys enhance appropriately. Bowel pattern is remarkable for a mild nonobstructive ileus. The soft tissue pelvis is remarkable for moderate ascites. There is a cystic mass immediately superior to the uterine fundal margin. This appears to contain a 1.5 cm calcific focus. It measures 11 x 8 cm. Margins are somewhat irregular raising the possibility of partial rupture. Etiology potentially relates to partial rupture of a complex ovarian cyst versus an ovarian cystic neoplastic process with partial rupture. Other less likely possible there is less likely possibilities include ruptured ovarian turmoil although no fat is identified both. A ruptured necrotic fibroid is considered unlikely but remotely possible. IMPRESSION: 1. Pelvic cystic mass measuring 11 x 8 cm with an irregular hyperdense peripheral margin. 2. Moderate abdominal and pelvic ascites. 3. Diagnostic considerations include complex ovarian cystic mass with partial rupture, versus ovarian cystic neoplastic process with partial rupture. 4. Other less likely possibilities are as discussed above. 5. Mild reactive nonobstructive ileus. The above report was generated using voice recognition software. It may contain grammatical, syntax or spelling errors. Electronically signed by: Isra Hinojosa M.D. 10/23/2017 7:08 PM Dictated Date/Time: 10/23/2017 7:00 PM
--- NOTE | 2017-10-23 19:24 | EMERGENCY ROOM VISIT NOTE ---
ED Visit Note First contact with patient: 16:06 I have personally seen and evaluated the patient with the physician certified physical therapist assistant. I agree with the diagnostic/management decisions and have personally been involved in these decisions and agree with the diagnosis.
--- NOTE | 2017-10-23 20:48 | DIAGNOSTIC IMAGING REPORT ---
PELVIC COMPLETE NON OB CLINICAL HISTORY: abnormal CT, ascites PAIN. ABNORMAL CT. COMPARISON STUDY: CT same date FINDINGS: The uterus measured not seen. The endometrial stripe measured not seen. The right ovary measured surgically absent. The left ovary measured not seen. Examination confirms the presence of an irregular cystic mass with peripheral soft tissue lobular component. By ultrasound this measures 14 x 9 cm. Possibility of a cystic ovarian mass versus the possibility of endometrioma must be considered. Mild pelvic ascites is present. IMPRESSION: 1. Irregular cystic mass within the central pelvis measuring 14 x 9 cm. 2. This contains soft tissue peripheral components and is associated with moderate ascites. 3. A cystic ovarian neoplastic process, atypical hemorrhagic cyst, versus cystic endometrioma type lesion must be considered. 4. Possibly of a partial rupture creating the ascites most also be a diagnostic consideration The above report was generated using voice recognition software. It may contain grammatical, syntax or spelling errors. Electronically signed by: Isra Hinojosa M.D. 10/23/2017 8:46 PM Dictated Date/Time: 10/23/2017 8:43 PM
--- NOTE | 2017-10-23 22:16 | EMERGENCY ROOM VISIT NOTE ---
History First contact with patient: 16:06 Chief Complaint: ABDOMINAL PAIN Stated Complaint: AB PAIN Nursing Triage Summary: Patient came in BLS from [facility]. PAtient began with abdominal pain this a.m. She went to PCP where EMS was called. Patient now complains of abdominal pain, no N/V/D at this time. Pain is 6/10 at this time. Patient A&O times four. PAtient currently seeing GI for possible IBS. History of Present Illness The patient is a 66 year old female who presents to the Emergency Room via BLS from [facility] with complaints of abdominal pain. The patient states just before noon today she started getting generalized abdominal pain. She states it was more across the lower abdomen then went up the left side and into the left flank. And now has gone across to the right side. The patient denies any associated nausea or vomiting. The patient states she had a normal bowel movement this morning. Patient denies any known fever. The patient denies any chest pain or shortness of breath. The patient denies any urinary symptoms of frequency, urgency, dysuria or hematuria. The patient does admit that last week she had some diarrhea for which she had contacted her accounts payable or receivable clerk, Dr. Hairston. She called the doctor today about her symptoms and she was told to go to [facility]. She went to the [facility] and they sent her here by ambulance. The patient states she had a colonoscopy performed in 2016 which showed some diverticulosis but otherwise was negative. She has never had diverticulitis. The patient last ate at 10 AM this morning. Review of Systems 10 system review was performed and was negative unless stated otherwise history of present illness. Past Medical/Surgical History Medical Problems: (1) Hypertension Nos (2) Pneumonia, Organism Nos Surgical Problems: (1) H/O oophorectomy Family History Hypertension Pneumonia Stroke Social History Smoking Status: Never Smoker Alcohol Use: none Marital Status: single Housing Status: lives alone Occupation Status: employed Current/Historical Medications Scheduled Acetaminophen (Tylenol), 1 TAB PO Q8 Amlodipine (Norvasc), 5 MG PO HS Atenolol (Tenormin), 25 MG PO HS Calcium-Magnesium W/ Vitamin D (Citracal Calcium+D Slow R), 1 TAB PO QAM Cholecalciferol (Vitamin D3), 2,000 CAP PO DAILY Hyoscyamine Sulfate (Levsin), 0.125 MG PO DAILY Misc Natural Products (Osteo Bi-Flex Triple Stre), 1 TAB PO QAM Mometasone Furoate (Nasal) (Mometasone Furoate), 2 SPRAYS VICENTA DAILY Multiple Vitamin (Stress Formula), 1 TAB PO DAILY Probiotic Product (Probiotic), 1 TAB PO DAILY Pyridoxine (Vitamin B6), 100 MG PO QAM Ranitidine Hcl (Zantac), 75 MG PO DAILY Saline ([place]), 1 SPRY VICENTA Q8 Scheduled PRN Saline ([place] Nasal [place]), 1 SPRAY NA UD PRN for Nasal Congestion Physical Exam Vital Signs Date Time Temp Pulse Resp B/P (MAP) Pulse Ox O2 Delivery O2 Flow Rate FiO2 10/23/17 21:00 99 18 120/66 95 Nasal Cannula 2.0 10/23/17 20:44 94 Nasal Cannula 2.0 10/23/17 20:41 95 16 110/51 88 Room Air 10/23/17 19:05 105 18 92/43 95 Room Air 10/23/17 18:41 93 16 126/70 92 10/23/17 16:49 96 21 148/79 96 Room Air 10/23/17 16:45 102 10/23/17 16:06 37.1 99 16 176/77 Room Air Physical Exam GENERAL: 66-year-old female appears in no acute distress. MENTAL Status: Alert and oriented 3. MOUTH: Mucosa is moist NECK: Supple, no lymphadenopathy noted. No carotid bruits noted. LUNGS: Clear auscultation without wheezes rales or rhonchi. CARDIAC: Regular rate and rhythm without murmur. Pulses is full and equal throughout. BACK: No CVA tenderness noted. ABDOMEN: Positive bowel sounds all 4 quadrants. Soft, the patient has diffuse tenderness to palpation throughout with increased tenderness over the entire right side of the abdomen. Positive McBurney's point. Positive rebound tenderness and peritoneal signs. EXTREMITIES: No cyanosis or edema noted. Medical Decision & Procedures ER Provider Diagnostic Interpretation: PELVIC COMPLETE NON OB CLINICAL HISTORY: abnormal CT, ascites PAIN. ABNORMAL CT. COMPARISON STUDY: CT same date FINDINGS: The uterus measured not seen. The endometrial stripe measured not seen. The right ovary measured surgically absent. The left ovary measured not seen. Examination confirms the presence of an irregular cystic mass with peripheral soft tissue lobular component. By ultrasound this measures 14 x 9 cm. Possibility of a cystic ovarian mass versus the possibility of endometrioma must be considered. Mild pelvic ascites is present. IMPRESSION: 1. Irregular cystic mass within the central pelvis measuring 14 x 9 cm. 2. This contains soft tissue peripheral components and is associated with moderate ascites. 3. A cystic ovarian neoplastic process, atypical hemorrhagic cyst, versus cystic endometrioma type lesion must be considered. 4. Possibly of a partial rupture creating the ascites most also be a diagnostic consideration The above report was generated using voice recognition software. It may contain grammatical, syntax or spelling errors. Electronically signed by: Isra Hinojosa M.D. 10/23/2017 8:46 PM ABD/PELVIS IV AND ORAL CONT CT DOSE: 370.96 mGy.cm HISTORY: Flank pain Right-sided abdominal pain TECHNIQUE: Multiaxial CT images of the abdomen and pelvis were performed following the use of intravenous and oral contrast. A dose lowering technique was utilized adhering to the principles of ALARA. COMPARISON STUDY: None. FINDINGS: Mild dependent basilar atelectasis. Upper abdominal ascites. Liver spleen and pancreas are uniform. Kidneys enhance appropriately. Bowel pattern is remarkable for a mild nonobstructive ileus. The soft tissue pelvis is remarkable for moderate ascites. There is a cystic mass immediately superior to the uterine fundal margin. This appears to contain a 1.5 cm calcific focus. It measures 11 x 8 cm. Margins are somewhat irregular raising the possibility of partial rupture. Etiology potentially relates to partial rupture of a complex ovarian cyst versus an ovarian cystic neoplastic process with partial rupture. Other less likely possible there is less likely possibilities include ruptured ovarian turmoil although no fat is identified both. A ruptured necrotic fibroid is considered unlikely but remotely possible. IMPRESSION: 1. Pelvic cystic mass measuring 11 x 8 cm with an irregular hyperdense peripheral margin. 2. Moderate abdominal and pelvic ascites. 3. Diagnostic considerations include complex ovarian cystic mass with partial rupture, versus ovarian cystic neoplastic process with partial rupture. 4. Other less likely possibilities are as discussed above. 5. Mild reactive nonobstructive ileus. The above report was generated using voice recognition software. It may contain grammatical, syntax or spelling errors. Electronically signed by: Isra Hinojosa M.D. Laboratory Results 10/23/17 16:20 Red Blood Count 5.06, Mean Corpuscular Volume 91.7, Mean Corpuscular Hemoglobin 32.0, Mean Corpuscular Hemoglobin Concent 34.9, Mean Platelet Volume 9.2, Neutrophils (%) (Auto) 90.7, Lymphocytes (%) (Auto) 4.9, Monocytes (%) (Auto) 3.8, Eosinophils (%) (Auto) 0.1, Basophils (%) (Auto) 0.2, Neutrophils # (Auto) 8.71, Lymphocytes # (Auto) 0.47, Monocytes # (Auto) 0.36, Eosinophils # (Auto) 0.01, Basophils # (Auto) 0.02 10/23/17 16:20 Test 10/23/17 16:20 10/23/17 18:30 10/23/17 21:41 White Blood Count 9.60 K/uL (4.8-10.8) Red Blood Count 5.06 M/uL (4.2-5.4) Hemoglobin 16.2 g/dL (12.0-16.0) Hematocrit 46.4 % (37-47) Mean Corpuscular Volume 91.7 fL (80-100) Mean Corpuscular Hemoglobin 32.0 pg (25-34) Mean Corpuscular Hemoglobin Concent 34.9 g/dl (32-36) Platelet Count 265 K/uL (130-400) Mean Platelet Volume 9.2 fL (7.4-10.4) Neutrophils (%) (Auto) 90.7 % Lymphocytes (%) (Auto) 4.9 % Monocytes (%) (Auto) 3.8 % Eosinophils (%) (Auto) 0.1 % Basophils (%) (Auto) 0.2 % Neutrophils # (Auto) 8.71 K/uL (1.4-6.5) Lymphocytes # (Auto) 0.47 K/uL (1.2-3.4) Monocytes # (Auto) 0.36 K/uL (0.11-0.59) Eosinophils # (Auto) 0.01 K/uL (0-0.5) Basophils # (Auto) 0.02 K/uL (0-0.2) RDW Standard Deviation 42.7 fL (36.4-46.3) RDW Coefficient of Variation 12.8 % (11.5-14.5) Immature Granulocyte % (Auto) 0.3 % Immature Granulocyte # (Auto) 0.03 K/uL (0.00-0.02) Anion Gap 8.0 mmol/L (3-11) Est Creatinine Clear Calc Drug Dose 57.1 ml/min Estimated GFR () 87.7 Estimated GFR (Non- 75.7 BUN/Creatinine Ratio 20.4 (10-20) Calcium Level 9.3 mg/dl (8.5-10.1) Total Bilirubin 0.8 mg/dl (0.2-1) Direct Bilirubin 0.2 mg/dl (0-0.2) Aspartate Amino Transf (AST/SGOT) 24 U/L (15-37) Alanine Aminotransferase (ALT/SGPT) 28 U/L (12-78) Alkaline Phosphatase 66 U/L (45-117) Total Protein 7.2 gm/dl (6.4-8.2) Albumin 3.7 gm/dl (3.4-5.0) Lipase 108 U/L (73-393) Urine Color DK YELLOW Urine Appearance CLEAR (CLEAR) Urine pH 6.0 (4.5-7.5) Urine Specific [place] 1.027 (1.000-1.030) Urine Protein TRACE (NEG) Urine Glucose (UA) NEG (NEG) Urine Ketones 4+ (NEG) Urine Occult Blood NEG (NEG) Urine Nitrite NEG (NEG) Urine Bilirubin 1+ (NEG) Urine Urobilinogen NEG (NEG) Urine Leukocyte Esterase NEG (NEG) Urine WBC (Auto) 0 /hpf (0-5) Urine RBC (Auto) 0-4 /hpf (0-4) Urine Hyaline Casts (Auto) 0 /lpf (0-5) Urine Epithelial Cells (Auto) 5-10 /lpf (0-5) Urine Bacteria (Auto) NEG (NEG) Medications Administered Medications (Trade) Dose Ordered Sig/Taty Route Start Time Stop Time Status Last Admin Dose Admin Morphine Sulfate (MoRPHine SULFATE INJ) 6 mg NOW STAT IV 10/23/17 16:15 10/23/17 16:19 DC 10/23/17 16:50 6 MG Ondansetron HCl (Zofran Inj) 4 mg NOW STAT IV 10/23/17 16:15 10/23/17 16:19 DC 10/23/17 16:50 4 MG ED Course The patient was evaluated. The patient EMR medication list were reviewed. IV access was obtained. CBC and differential, renal profile, LFTs and lipase levels were ordered. Labs are reviewed and were unremarkable. Urinalysis was ordered. Urinalysis was negative. . The patient was given morphine 6 mg IV and Zofran [address] of the abdomen and pelvis with IV and oral contrast was ordered interpreted by the radiologist as above with a large cystic mass in the mid pelvis. There is also ascites present which would suggest recent rupture. The patient was independently evaluated by Dr. Delgado who agreed with treatment plan. I informed the patient the findings. I consulted Dr. Srinivasan/[facility] about the patient. She suggested that I order an ultrasound of the pelvis. This was performed and interpreted by the radiologist as above. Findings were similar to the CAT scan. I again spoke with Dr. Srinivasan about the findings. She wanted me to order a CA 125 while she was in the emergency room and that the patient could be discharged and she would see her in the office at 11:15 AM on Saturday. She was informed of the treatment plan and was in agreement. The patient was given an OxyIR home pack and a Zofran home pack. The patient was discharged home in stable condition. Medical Decision Differential diagnoses include acute appendicitis, ovarian torsion, endometriosis, endometrioma, ovarian cyst, neoplasm, [place] Drug Monitoring Program Search Results: patient reviewed within database Medication Reconcilliation Current Medication List: was personally reviewed by me Blood Pressure Screening Patient's blood pressure: Normal blood pressure Impression Primary Impression: Pelvic pain Additional Impressions: Pelvic mass in female Ascites Departure Information Dispostion Home / Self-Care Condition GOOD Referrals Ashley Bray M.D. (PCP) Betty Srinivasan M.D.([facility]/OB) Forms Call Back Authorization, HOME CARE DOCUMENTATION FORM, IMPORTANT VISIT INFORMATION Patient Instructions My [facility] [employer] Additional Instructions Tylenol every 6 hours as needed for pain. Take OxyIR as needed for more severe pain. Do not drive while taking the OxyIR. Take Zofran as needed for associated nausea. Follow-up appointment on Saturday with Dr. Srinivasan at [facility]. If your symptoms worsen in the interim, return to ER immediately by calling [phone]. Problem Qualifiers Additional Impressions: Ascites Ascites type: other type Qualified Codes: R18.8 - Other ascites
[2017-10-23] MEDS ORDERED: OXYC1TAB3 PO (22:19)
[2017-10-23] MEDS ORDERED: ONDA4TAB10 SL (22:19)
[2017-10-23] MEDS ORDERED: OXYCODONE IR HOME PACK PO ONE (22:30)
[2017-10-23] MEDS ORDERED: ONDANSETRON HOME PACK 4MG OD TAB PO ONE (22:30)
[2017-10-23 22:35] VITALS: BP 117/93; PULSE 94; TEMP 37.1; O2SAT 93
== END 2017-10-23 22:37 | disposition home or self-care (01) ==
LOC: EDBD 15:58 → C.EDB 15:59
DX: R10.9 Unspecified abdominal pain (principal); R18.8 Other ascites; I10 Essential (primary) hypertension; Z87.01 Personal history of pneumonia (recurrent); Z90.722 Acquired absence of ovaries, bilateral; Z82.49 Family history of ischemic heart disease and other diseases of the circulatory system; Z82.3 Family history of stroke; Z79.899 Other long term (current) drug therapy

== ENCOUNTER 2017-10-28 14:57 | Emergency (ER) | payer OTHER ==
[~2017-10-28] VITALS: Ht 152.4 cm; Wt 63.5 kg
[~2017-10-28 14:57] MED LIST changes: -APIX1TAB3 PO; +APIXABAN 2.5 MG TAB PO SCH
[2017-10-28 15:01] VITALS: TEMP 37; Ht 152.4 cm; Wt 63.5 kg
--- NOTE | 2017-10-28 16:29 | EMERGENCY ROOM VISIT NOTE ---
History First contact with patient: 15:41 Chief Complaint: REFERRED BY DOCTOR Stated Complaint: DOC REFERRED; BLOOD CLOTS History of Present Illness The patient is a 66 year old female who presents to the Emergency Room with complaints of DVT in the left lower extremity. Patient states on Saturday, she started to notice a stinging sensation in her left proximal calf and posterior knee. She states last night, she noticed some swelling and mild redness in the same area. She does have a history of protruding veins, but denies any history of DVT. She was seen at [facility] today, and had an outpatient ultrasound performed. This was positive for acute DVT in the posterior tibial vein and superficial thrombus in the distal thigh and lateral posterior calf. The patient has never taken blood thinners in the past. She does report a recent fall on the snow, and was seen here for that fall. She states she may be slightly more sedentary than normal. Last week, she states she was here and diagnosed with an abdominal mass and possible ovarian cancer. She denies any recent travel, is not taking hormones, and denies any tobacco use. The patient tries to stay as active as possible. She denies any difficulty breathing or chest pain. She denies any tachycardia. Review of Systems A complete 10 point review of systems was reviewed with the patient with pertinent positives and negatives as per history of present illness. All else were negative. Past Medical/Surgical History Medical Problems: (1) Hypertension Nos (2) Pneumonia, Organism Nos Surgical Problems: (1) H/O oophorectomy Family History Hypertension Pneumonia Stroke Social History Smoking Status: Never Smoker Smokeless Tobacco Use: No Alcohol Use: none Drug Use: none Marital Status: single Housing Status: lives alone Occupation Status: employed Current/Historical Medications Scheduled Acetaminophen (Tylenol), 1 TAB PO Q8 Amlodipine (Norvasc), 5 MG PO HS Apixaban (Eliquis), 10 MG PO BID Apixaban (Eliquis), 5 MG PO BID Atenolol (Tenormin), 25 MG PO HS Calcium-Magnesium W/ Vitamin D (Citracal Calcium+D Slow R), 1 TAB PO QAM Cholecalciferol (Vitamin D3), 2,000 CAP PO DAILY Hyoscyamine Sulfate (Levsin), 0.125 MG PO DAILY Misc Natural Products (Osteo Bi-Flex Triple Stre), 1 TAB PO QAM Mometasone Furoate (Nasal) (Mometasone Furoate), 2 SPRAYS VICENTA DAILY Multiple Vitamin (Stress Formula), 1 TAB PO DAILY Ondasetron Odt (Zofran Odt), 4 MG SL Q6H Probiotic Product (Probiotic), 1 TAB PO DAILY Pyridoxine (Vitamin B6), 100 MG PO QAM Ranitidine Hcl (Zantac), 75 MG PO DAILY Saline ([place]), 1 SPRY VICENTA Q8 Scheduled PRN Oxycodone Immediate Rel Tab (Roxicodone Ir), 5 MG PO Q6H PRN for Pain Saline ([place] Nasal [place]), 1 SPRAY NA UD PRN for Nasal Congestion Physical Exam Vital Signs Date Time Temp Pulse Resp B/P (MAP) Pulse Ox O2 Delivery O2 Flow Rate FiO2 10/28/17 17:38 89 18 163/93 96 Room Air 10/28/17 15:01 37.0 70 20 152/74 99 Room Air Physical Exam VITALS: Vitals are noted on the nurse's note and reviewed by myself. Vital signs stable. GENERAL: This is a 66-year-old white female, in no acute distress, nondiaphoretic, well-developed well-nourished. SKIN: The skin was without rashes, erythema, edema, or bruising. There is no tenting of the skin. Capillary reflex less than 2 seconds. HEAD: Normocephalic atraumatic. EARS: External auditory canals clear, tympanic membranes pearly espino without erythema or effusion bilaterally. EYES: Pupils equal round and reactive to light and accommodation. Conjunctivae without injection, sclerae without icterus. Extraocular movements intact. NOSE: Patent, turbinates without inflammation or discharge. No sinus tenderness. MOUTH: Mucous membranes moist. Tonsils are not enlarged. Pharynx without erythema or exudate. Uvula midline. Airway patent. Tongue does not deviate. NECK: Supple without nuchal rigidity. No lymphadenopathy. No thyromegaly. Cervical spine is nontender. No JVD. HEART: Regular rate and rhythm without murmurs gallops or rubs. LUNGS: Clear to auscultation bilaterally without wheezes, rales or rhonchi. No dullness to percussion. No retractions or accessory muscle use. ABDOMEN: Positive bowel sounds x 4. Normal tympanic percussion. Soft, nontender, without masses or organomegaly. Small sign negative. No guarding or rebound tenderness. MUSCULOSKELETAL: No muscle atrophy, erythema noted. Mild edema of the left lower extremity in the proximal calf. Full range of motion without joint tenderness in all extremities. Mild tenderness to palpation. Normal gait. Strength 5/5 throughout. No palpable cord, however, there are palpable masses in the left lower extremity superficially. NEURO: Patient was alert and oriented to person place and time. Normal sensation to light and sharp touch. Deep tendon reflexes 2+ throughout. No focal neurological deficits. Medical Decision & Procedures ER Provider Diagnostic Interpretation: ULTRASOUND L VENOUS DOPP LOWER EXT UNILAT CLINICAL HISTORY: Left leg pain and swelling COMPARISON STUDY: No previous studies for comparison. FINDINGS: No thrombus was visualized in left common femoral superficial femoral or popliteal veins. There is calf DVT present within one of 2 paired posterior tibial veins. There is superficial thrombus within the posterior lateral proximal calf and distal thigh region. IMPRESSION: 1. Acute left calf DVT involving the posterior tibial vein 2. Superficial thrombus involving the distal thigh and lateral posterior calf Electronically signed by: Dimitry Parker M.D. 10/28/2017 1:59 PM Dictated Date/Time: 10/28/2017 1:57 PM Laboratory Results 10/28/17 16:20 Red Blood Count 4.51, Mean Corpuscular Volume 91.8, Mean Corpuscular Hemoglobin 32.2, Mean Corpuscular Hemoglobin Concent 35.0, Mean Platelet Volume 9.3, Neutrophils (%) (Auto) 63.8, Lymphocytes (%) (Auto) 23.1, Monocytes (%) (Auto) 9.6, Eosinophils (%) (Auto) 3.0, Basophils (%) (Auto) 0.3, Neutrophils # (Auto) 3.77, Lymphocytes # (Auto) 1.37, Monocytes # (Auto) 0.57, Eosinophils # (Auto) 0.18, Basophils # (Auto) 0.02 10/28/17 16:20 Test 10/28/17 16:20 10/28/17 17:06 White Blood Count 5.92 K/uL (4.8-10.8) Red Blood Count 4.51 M/uL (4.2-5.4) Hemoglobin 14.5 g/dL (12.0-16.0) Hematocrit 41.4 % (37-47) Mean Corpuscular Volume 91.8 fL (80-100) Mean Corpuscular Hemoglobin 32.2 pg (25-34) Mean Corpuscular Hemoglobin Concent 35.0 g/dl (32-36) Platelet Count 211 K/uL (130-400) Mean Platelet Volume 9.3 fL (7.4-10.4) Neutrophils (%) (Auto) 63.8 % Lymphocytes (%) (Auto) 23.1 % Monocytes (%) (Auto) 9.6 % Eosinophils (%) (Auto) 3.0 % Basophils (%) (Auto) 0.3 % Neutrophils # (Auto) 3.77 K/uL (1.4-6.5) Lymphocytes # (Auto) 1.37 K/uL (1.2-3.4) Monocytes # (Auto) 0.57 K/uL (0.11-0.59) Eosinophils # (Auto) 0.18 K/uL (0-0.5) Basophils # (Auto) 0.02 K/uL (0-0.2) RDW Standard Deviation 43.8 fL (36.4-46.3) RDW Coefficient of Variation 13.0 % (11.5-14.5) Immature Granulocyte % (Auto) 0.2 % Immature Granulocyte # (Auto) 0.01 K/uL (0.00-0.02) Prothrombin Time 10.8 SECONDS (9.0-12.0) Prothromb Time International Ratio 1.0 (0.9-1.1) Activated Partial Thromboplast Time 24.5 SECONDS (21.0-31.0) Partial Thromboplastin Ratio 0.9 Anion Gap 9.0 mmol/L (3-11) Est Creatinine Clear Calc Drug Dose 63.1 ml/min Estimated GFR () 99.5 Estimated GFR (Non- 85.8 BUN/Creatinine Ratio 26.5 (10-20) Calcium Level 9.1 mg/dl (8.5-10.1) Total Bilirubin 0.6 mg/dl (0.2-1) Aspartate Amino Transf (AST/SGOT) 18 U/L (15-37) Alanine Aminotransferase (ALT/SGPT) 26 U/L (12-78) Alkaline Phosphatase 57 U/L (45-117) Total Protein 7.1 gm/dl (6.4-8.2) Albumin 3.3 gm/dl (3.4-5.0) Globulin 3.8 gm/dl (2.5-4.0) Albumin/Globulin Ratio 0.9 (0.9-2) Folate 23.34 ng/mL (>5.38) Medications Administered Medications (Trade) Dose Ordered Sig/Taty Route Start Time Stop Time Status Last Admin Dose Admin Apixaban (Eliquis Tab) 10 mg BID STAT PO 10/28/17 17:23 18 17:26 DC 18 18:16 10 MG Apixaban (Eliquis Tab) 10 mg NOW STAT PO 10/28/17 17:23 18 17:26 DC 10/28/17 18:16 10 MG ED Course The patient was seen and evaluated as above. Past medical records reviewed. I discussed the case with Dr. Willams. We did agree on ordering hypercoagulability panel, as the patient does not have any significant risk factors or known cause for DVT. Labs obtained and reviewed. Discharge instructions discussed. The patient was discharged home in good condition. Medical Decision This is a 66-year-old female patient presents to the emergency department today complaining of DVT in the left lower extremity. The patient has no history of clots, and does not have risk factors. Due to the uncertain etiology of her DVT , hypercoagulability work-up initiated prior to initiating anticoagulation therapy. CBC and PT/INR were without abnormality. CMP did not show any significant renal or hepatic abnormality. A complex mass was noted on CT/US of the ovary last week, so there is concern for possible malignancy. The patient will be tentatively started on a NOAC at this time, but I did have a discussion with her regarding possible need to switch to lovenox or other anticoagulant after further testing completed for ovarian mass. The patient was agreeable. She is to follow-up with her PCP and marketing communications coordinator for ongoing management, however, will be given her initial prescription here in the ED. Etiologies such as DVT, joint effusion, infection, trauma, muscular, lymphedema , idiopathic, CHF, as well as others were entertained. Medication Reconcilliation Current Medication List: was personally reviewed by me Blood Pressure Screening Patient's blood pressure: Normal blood pressure Impression Primary Impression: Deep vein thrombosis (DVT) of left lower extremity Additional Impression: Superficial thrombosis of left lower extremity Departure Information Dispostion Home / Self-Care Condition GOOD Prescriptions Apixaban (ELIQUIS) 5 Mg Tab 5 MG PO BID for 30 Days, #60 TAB Prov: Yeimy Daniel PA-C 10/28/17 Apixaban (ELIQUIS) 5 Mg Tab 10 MG PO BID for 7 Days, #28 TAB Prov: Yeimy Daniel PA-C 10/28/17 Referrals Ashley Bray M.D. (PCP) Hematology/Oncology Patient Instructions ED DVT, My [facility] Additional Instructions You were seen in the emergency department today for a deep vein thrombosis. You are to start Eliquis to help thin the blood and allow the body to dissolve the clot. Start Eliquis 10mg twice daily x7 days. After the first week, the dose decreases to 5mg twice daily. You will need to take this medication for at least 3 months. Please work with your PCP and marketing communications coordinator regarding ongoing therapy. As discussed, taking Eliquis (or any anticoagulants) can increase your risk of bleeding and/or bruising. You are at higher risk of bleeding in the brain if you should fall or experience trauma. This medication can cause increased bleeding in the gums or the GI symptoms. Prescriptions were sent to the Pharmacy for you. If these medications are not covered by your insurance, contact the ED or your PCP for potential Rx for Xarelto or Lovenox. As discussed, if the mass in your abdomen turns out to be cancerous, you will need to be switched from Eliquis to Lovenox or other anti-coagulant. Please return to the ED for any concerning side effects or bleeding concerns. Please follow-up with your primary care provider and marketing communications coordinator for ongoing management. You should see her primary care provider later this week. Return to the emergency department for any signs of concerning bleeding, head trauma, bleeding which will not stop, or other concerns or side effects to medication. Problem Qualifiers Primary Impression: Deep vein thrombosis (DVT) of left lower extremity Affected thrombotic vein of extremity: unspecified vein of extremity Chronicity: acute Qualified Codes: I82.402 - Acute embolism and thrombosis of unspecified deep veins of left lower extremity
[2017-10-28 16:31] LABS: BASO % 0.3 %; BASO ABS # 0.02 K/uL (0-0.2); EOS ABS # 0.18 K/uL (0-0.5); HEMATOCRIT 41.4 % (37-47); HEMOGLOBIN 14.5 g/dL (12.0-16.0); IG# 0.01 K/uL (0.00-0.02); LYMPH % 23.1 %; LYMPH ABS # 1.37 K/uL (1.2-3.4); MEAN CELL VOLUME 91.8 fL (80-100); MEAN CORPUSCULAR HEMOGLOBIN 32.2 pg (25-34); MEAN PLATELET VOLUME 9.3 fL (7.4-10.4); MONO % 9.6 %; MONO ABS # 0.57 K/uL (0.11-0.59); NEUT % 63.8 %; NEUT ABS # 3.77 K/uL (1.4-6.5); PLATELET COUNT 211 K/uL (130-400); RED CELL DISTRIBUTION WIDTH SD 43.8 fL (36.4-46.3); WHITE BLOOD COUNT 5.92 K/uL (4.8-10.8)
[2017-10-28 16:42] LABS: PTT PATIENT 24.5 SECONDS (21.0-31.0)
[2017-10-28 16:48] LABS: ALBUMIN 3.3 gm/dl (3.4-5.0); CALCIUM 9.1 mg/dl (8.5-10.1); CREATININE 0.73 mg/dl (0.60-1.20); POTASSIUM 4.3 mmol/L (3.5-5.1)
[2017-10-28 16:52] LABS: TOTAL PROTEIN 7.1 gm/dl (6.4-8.2)
[2017-10-28] MEDS ORDERED: APIX1TAB3 PO (17:21)
[2017-10-28] MEDS ORDERED: APIXABAN 2.5 MG TAB PO STA ×2 (17:23)
[2017-10-28 17:38] VITALS: BP 163/93; PULSE 89; O2SAT 96
--- NOTE | 2017-10-30 01:05 | EMERGENCY ROOM VISIT NOTE ---
ED Visit Note First contact with patient: 15:41 I reviewed the patient's past medical history, medications, and visit nursing notes. I discussed the case with the physician assistant athletic trainer, examined the patient, and agree with the findings and plan as documented in the physician assistants note.
== END 2017-10-28 18:18 | disposition home or self-care (01) ==
LOC: C.EDB 14:59 → C.EDC 18:18
DX: I82.402 Acute embolism and thrombosis of unspecified deep veins of left lower extremity (principal); I82.812 Embolism and thrombosis of superficial veins of left lower extremity; I10 Essential (primary) hypertension; Z82.3 Family history of stroke

== ENCOUNTER → 2017-10-28 | Outpatient (CLI) | payer OTHER ==
[~2017-10-28] MED LIST changes: +APIX1TAB3 PO; -NF656 TD; +ONDA4TAB10 SL; +OXYC1TAB3 PO; -TRAM-10 PO
--- NOTE | 2017-10-28 14:00 | DIAGNOSTIC IMAGING REPORT ---
ULTRASOUND L VENOUS DOPP LOWER EXT UNILAT CLINICAL HISTORY: Left leg pain and swelling COMPARISON STUDY: No previous studies for comparison. FINDINGS: No thrombus was visualized in left common femoral superficial femoral or popliteal veins. There is calf DVT present within one of 2 paired posterior tibial veins. There is superficial thrombus within the posterior lateral proximal calf and distal thigh region. IMPRESSION: 1. Acute left calf DVT involving the posterior tibial vein 2. Superficial thrombus involving the distal thigh and lateral posterior calf Electronically signed by: Dimitry Parker M.D. 10/28/2017 1:59 PM Dictated Date/Time: 10/28/2017 1:57 PM
== END | disposition home or self-care (01) ==
LOC: C.ULTRBC 13:22
PROVIDERS: ATTEND Family Medicine
DX: M79.606 Pain in leg, unspecified (principal); I80.9 Phlebitis and thrombophlebitis of unspecified site; I83.90 Asymptomatic varicose veins of unspecified lower extremity

== ENCOUNTER → 2017-11-04 | Outpatient (CLI) | payer OTHER ==
[~2017-11-04] MED LIST changes: +APIX1TAB3 PO; -APIXABAN 2.5 MG TAB PO SCH
--- NOTE | 2017-11-04 15:53 | DIAGNOSTIC IMAGING REPORT ---
CHEST 2 VIEWS ROUTINE CLINICAL HISTORY: 66 years-old Female presenting with PELVIC MASS R19.00 PREOP TESTING Z01.818. TECHNIQUE: PA and lateral views of the chest were obtained. COMPARISON: 09/08/2017. FINDINGS: Atherosclerosis of the aortic arch. Cardiac silhouette normal in size. No focal infiltrate. Trace bilateral pleural effusions may be present. Exaggerated thoracic kyphosis with mild multilevel degenerative changes. Underlying osteopenia may be present. No focal compression deformity is evident. Hiatal hernia. IMPRESSION: 1. Trace bilateral pleural effusions may be present. Otherwise no evidence of acute cardiopulmonary disease. Electronically signed by: Yobani Garcia M.D. 11/04/2017 3:51 PM Dictated Date/Time: 11/04/2017 3:50 PM
[2017-11-04 17:26] LABS: HEMATOCRIT 42.6 % (37-47); HEMOGLOBIN 14.5 g/dL (12.0-16.0); MEAN CELL VOLUME 93.6 fL (80-100); MEAN CORPUSCULAR HEMOGLOBIN 31.9 pg (25-34); MEAN PLATELET VOLUME 9.2 fL (7.4-10.4); PLATELET COUNT 475 K/uL (130-400); RED CELL DISTRIBUTION WIDTH CV 13.3 % (11.5-14.5); RED CELL DISTRIBUTION WIDTH SD 45.7 fL (36.4-46.3); WHITE BLOOD COUNT 7.48 K/uL (4.8-10.8)
[2017-11-04 18:12] LABS: ALBUMIN 3.9 gm/dl (3.4-5.0); ALT/SGPT 30 U/L (12-78); BLOOD UREA NITROGEN 17 mg/dl (7-18); CALCIUM 9.1 mg/dl (8.5-10.1); CARBON DIOXIDE 33 mmol/L (21-32); GLUCOSE 134 mg/dl (70-99); POTASSIUM 3.5 mmol/L (3.5-5.1); SODIUM 141 mmol/L (136-145)
[2017-11-04 18:15] LABS: ALKALINE PHOSPHATASE 62 U/L (45-117); AST/SGOT 20 U/L (15-37); TOTAL PROTEIN 7.6 gm/dl (6.4-8.2)
== END | disposition home or self-care (01) ==
LOC: C.RADPV 15:17
PROVIDERS: ATTEND Obstetrics & Gynecology Gynecologic Oncology
DX: Z01.818 Encounter for other preprocedural examination (principal); R19.00 Intra-abdominal and pelvic swelling, mass and lump, unspecified site

== ENCOUNTER → 2017-12-06 | Outpatient (CLI) | payer OTHER ==
[~2017-12-06] MED LIST changes: -APIX1TAB3 PO
== END | disposition home or self-care (01) ==
LOC: C.LABPVFM 17:55
PROVIDERS: ATTEND Family Medicine
DX: N39.0 Urinary tract infection, site not specified (principal)

== ENCOUNTER 2017-12-25 22:38 | Observation (INO) | payer OTHER ==
[~2017-12-25] VITALS: Ht 152.4 cm; Wt 62.3 kg
[~2017-12-25 22:38] MED LIST changes: -APIX1TAB3 PO; -CHOLPOW PO; -ENOX120I SQ; -ONDA8TAB62 SL; -chemo IV
[2017-12-25 23:37] LABS: HEMATOCRIT 41.2 % (37-47); HEMOGLOBIN 13.8 g/dL (12.0-16.0); IG# 0.02 K/uL (0.00-0.02); LYMPH % 10.7 %; LYMPH ABS # 0.88 K/uL (1.2-3.4); MEAN CORPUSCULAR HEMOGLOBIN 30.8 pg (25-34); MEAN CORPUSCULAR HGB CONC 33.5 g/dl (32-36); MEAN PLATELET VOLUME 9.7 fL (7.4-10.4); MONO ABS # 0.41 K/uL (0.11-0.59); NEUT % 84.1 %; NEUT ABS # 6.95 K/uL (1.4-6.5); PLATELET COUNT 274 K/uL (130-400); RED CELL DISTRIBUTION WIDTH CV 13.7 % (11.5-14.5); WHITE BLOOD COUNT 8.26 K/uL (4.8-10.8)
[2017-12-25 23:59] LABS: ALBUMIN 3.8 gm/dl (3.4-5.0); CALCIUM 8.8 mg/dl (8.5-10.1); CREATININE 0.85 mg/dl (0.60-1.20); POTASSIUM 3.2 mmol/L (3.5-5.1)
[2017-12-26] VITALS (7 sets, daily range): BP systolic 120–153; BP diastolic 57–77; PULSE 55–62; TEMP 36.8–37.4; O2SAT 96–98; Ht 152.4 cm; Wt 62.3 kg
[2017-12-26 00:03] LABS: TOTAL PROTEIN 7.6 gm/dl (6.4-8.2)
[2017-12-26 00:05] LABS: INR 9.9 (0.9-1.1)
[2017-12-26 00:06] LABS: PTT PATIENT 47.6 SECONDS (21.0-31.0)
[2017-12-26] MEDS ORDERED: PHYTONADIONE 5 MG TAB PO STA (00:18)
[2017-12-26] MEDS ORDERED: ONDANSETRON INJ 2 MG/ML 2 ML VIAL IV STA (00:18)
[2017-12-26] MEDS ORDERED: ONDA8TAB62 SL ×2 (00:31)
[2017-12-26] MEDS ORDERED: ENOX120I SQ ×2 (00:35)
[2017-12-26] MEDS ORDERED: chemo IV ×2 (00:37)
[2017-12-26] MEDS ORDERED: ONDANSETRON 8MG OD TAB PO PRN (02:00)
[2017-12-26] MEDS ORDERED: ACETAMINOPHEN 325 MG TAB PO PRN (02:00)
--- NOTE | 2017-12-26 02:29 | EMERGENCY ROOM VISIT NOTE ---
History Report prepared by Rianna: Bucky Vigil Under the Supervision of: Dr. Fred Perez M.D. First contact with patient: 22:52 Chief Complaint: ABNORMAL LABS Stated Complaint: ABN LABS, NEED VITAMIN K, CANCER PT- REFERRED History of Present Illness The patient is a 67 year old female who presents to the Emergency Room with complaints of constant abnormal lab work that started today. The patient states she was here on October 28 where she was found to have a DVT. She reports she was put on Eloquis which she has been taking until a week ago. The patient states she then had a hysterectomy on October 28. She reports she also had a vena cava filter placed on November 12. She reports she saw Dr. Butts last week and was put on Warfarin and Lovenox. She states she has been taking these medications for a week. The patient states she recently was experiencing diarrhea a couple of days ago. She reports she had 11 bowel movements that were all diarrhea. The patient states her diarrhea did resolve this morning. She reports she had her first chemo therapy treatment yesterday. The patient states she got blood work todayas a follow up where she was found to a high INR. The patient denies LOC, headache, fevers, chills, diaphoresis, visual changes, neck pain, chest pain, breathing difficulties, nausea, vomiting, abdominal pain, back pain, melena, hematochezia, urinary symptoms, numbness, weakness, lymphadenopathy, rash, or other complaints. Source of History: patient Onset: today Position: other (global) Quality: other (high INR) Timing: constant Associated Symptoms: + diarrhea Review of Systems See HPI for pertinent positives and negatives. A total of ten systems were reviewed and were otherwise negative. Past Medical & Surgical Medical Problems: (1) Hypertension Nos (2) Pneumonia, Organism Nos (3) Supratherapeutic INR Surgical Problems: (1) H/O oophorectomy Family History Hypertension Pneumonia Stroke Social History Smoking Status: Never Smoker Alcohol Use: none Drug Use: none Marital Status: single Housing Status: lives alone Occupation Status: employed Current/Historical Medications Scheduled Acetaminophen (Tylenol), 1 TAB PO Q8 Amlodipine (Norvasc), 5 MG PO HS Atenolol (Tenormin), 25 MG PO HS Calcium-Magnesium W/ Vitamin D (Citracal Calcium+D Slow R), 1 TAB PO QAM Cholecalciferol (Vitamin D3), 2,000 CAP PO DAILY Enoxaparin (Lovenox), 95 MG SQ DIRECTED Misc Natural Products (Osteo Bi-Flex Triple Stre), 1 TAB PO QAM Mometasone Furoate (Nasal) (Mometasone Furoate), 2 SPRAYS VICENTA DAILY Multiple Vitamin (Stress Formula), 1 TAB PO DAILY Probiotic Product (Probiotic), 1 TAB PO DAILY Pyridoxine (Vitamin B6), 100 MG PO QAM Ranitidine Hcl (Zantac), 75 MG PO DIRECTED Saline ([place]), 1 SPRY VICENTA Q8 [chemo], 1 DOSE IV DIRECTED Scheduled PRN Ondansetron Odt (Zofran Odt), 4 MG SL Q6H PRN for Nausea Saline ([place] Nasal [place]), 1 SPRAY NA UD PRN for Nasal Congestion Allergies Coded Allergies: Penicillins (Verified Allergy, Mild, OTHER, 12/26/17) Sulfa Antibiotics (Verified Allergy, Mild, UNKNOWN, 12/26/17) Ciprofloxacin (Verified Allergy, Unknown, Unknown, 12/26/17) Erythromycin (Verified Allergy, Unknown, GI UPSET, 12/26/17) Moxifloxacin (Verified Allergy, Unknown, itching, 12/26/17) Physical Exam Vital Signs Date Time Temp Pulse Resp B/P (MAP) Pulse Ox O2 Delivery O2 Flow Rate FiO2 12/26/17 02:12 59 18 110/51 95 12/26/17 01:14 62 21 126/96 96 Room Air 12/26/17 00:55 78 25 96 Room Air 12/25/17 23:55 68 12/25/17 23:50 63 16 121/70 97 Room Air 12/25/17 23:49 97 Room Air 12/25/17 22:41 36.9 58 16 156/73 94 Room Air Physical Exam GENERAL: Awake, alert, well-appearing, in no distress HENT: Normocephalic, atraumatic. Oropharynx unremarkable. EYES: Normal conjunctiva. Sclera non-icteric. NECK: Supple. No nuchal rigidity. FROM. No masses. RESPIRATORY: Clear to auscultation. No wheezes. No rales. Normal respiratory effort. CARDIAC: Normal rate. Normal rhythm. No murmurs. No rubs. Extremities warm and well perfused. Pulses equal. No JVD. GI: Soft, non-distended. No tenderness to palpation. No rebound or guarding. No masses. RECTAL: Deferred. MUSCULOSKELETAL: Atraumatic. Chest examination reveals no tenderness. The back is symmetrical on inspection without obvious abnormality. There is no CVA tenderness to palpation. No joint edema. LOWER EXTREMITIES: Calves are equal size bilaterally and non-tender. No edema. No discoloration. NEURO: Normal sensorium. No sensory or motor deficits noted. SKIN: No rash or jaundice noted. Medical Decision & Procedures Laboratory Results 12/25/17 23:15 Red Blood Count 4.48, Mean Corpuscular Volume 92.0, Mean Corpuscular Hemoglobin 30.8, Mean Corpuscular Hemoglobin Concent 33.5, Mean Platelet Volume 9.7, Neutrophils (%) (Auto) 84.1, Lymphocytes (%) (Auto) 10.7, Monocytes (%) (Auto) 5.0, Eosinophils (%) (Auto) 0.0, Basophils (%) (Auto) 0.0, Neutrophils # (Auto) 6.95, Lymphocytes # (Auto) 0.88, Monocytes # (Auto) 0.41, Eosinophils # (Auto) 0.00, Basophils # (Auto) 0.00 12/25/17 23:15 Test 12/25/17 23:15 White Blood Count 8.26 K/uL (4.8-10.8) Red Blood Count 4.48 M/uL (4.2-5.4) Hemoglobin 13.8 g/dL (12.0-16.0) Hematocrit 41.2 % (37-47) Mean Corpuscular Volume 92.0 fL (80-100) Mean Corpuscular Hemoglobin 30.8 pg (25-34) Mean Corpuscular Hemoglobin Concent 33.5 g/dl (32-36) Platelet Count 274 K/uL (130-400) Mean Platelet Volume 9.7 fL (7.4-10.4) Neutrophils (%) (Auto) 84.1 % Lymphocytes (%) (Auto) 10.7 % Monocytes (%) (Auto) 5.0 % Eosinophils (%) (Auto) 0.0 % Basophils (%) (Auto) 0.0 % Neutrophils # (Auto) 6.95 K/uL (1.4-6.5) Lymphocytes # (Auto) 0.88 K/uL (1.2-3.4) Monocytes # (Auto) 0.41 K/uL (0.11-0.59) Eosinophils # (Auto) 0.00 K/uL (0-0.5) Basophils # (Auto) 0.00 K/uL (0-0.2) RDW Standard Deviation 46.0 fL (36.4-46.3) RDW Coefficient of Variation 13.7 % (11.5-14.5) Immature Granulocyte % (Auto) 0.2 % Immature Granulocyte # (Auto) 0.02 K/uL (0.00-0.02) Prothrombin Time 99.4 SECONDS (9.0-12.0) Prothromb Time International Ratio 9.9 (0.9-1.1) Activated Partial Thromboplast Time 47.6 SECONDS (21.0-31.0) Partial Thromboplastin Ratio 1.8 Anion Gap 5.0 mmol/L (3-11) Est Creatinine Clear Calc Drug Dose 52.9 ml/min Estimated GFR () 82.2 Estimated GFR (Non- 70.9 BUN/Creatinine Ratio 33.7 (10-20) Calcium Level 8.8 mg/dl (8.5-10.1) Total Bilirubin 0.6 mg/dl (0.2-1) Aspartate Amino Transf (AST/SGOT) 74 U/L (15-37) Alanine Aminotransferase (ALT/SGPT) 70 U/L (12-78) Alkaline Phosphatase 60 U/L (45-117) Total Protein 7.6 gm/dl (6.4-8.2) Albumin 3.8 gm/dl (3.4-5.0) Globulin 3.8 gm/dl (2.5-4.0) Albumin/Globulin Ratio 1.0 (0.9-2) Laboratory results reviewed by me Medications Administered Medications (Trade) Dose Ordered Sig/Taty Route Start Time Stop Time Status Last Admin Dose Admin Ondansetron HCl (Zofran Inj) 4 mg NOW STAT IV 12/26/17 00:18 12/26/17 00:19 DC 12/26/17 00:27 4 MG Phytonadione (Mephyton Tab) 10 mg NOW STAT PO 12/26/17 00:18 12/26/17 00:19 DC 12/26/17 00:27 10 MG ED Course 2331: The patient was evaluated in room C10. A complete history and physical exam was performed. 0015: I discussed the patients case with Dr. Rodriguez [facility] Hospitalist. He understands the patients case and agrees to accept the patient. The patient will be further evaluated. 0018: Ordered Phytonadione 10 mg PO, Zofran Injection 4 mg IV. Medical Decision Patient presents emergency department because of an abnormal outpatient lab. She is currently taking Coumadin and Lovenox. She was told that she has an INR greater than 10. Record review indicates that the laboratory value was actually greater than 10. The patient has not had any bleeding issues. Differential includes medication complication, anemia, hemorrhage, as well as others. Physical examination was benign. The patient appears to be doing very well. Laboratory testing was rechecked to verify. Her INR was 9.9. Given this significant abnormality internal medicine was consulted. 10 mg of oral vitamin K was recommended. The patient also noted some mild nausea and was given IV Zofran. The patient was evaluated by internal medicine in the ER for further management. Medication Reconcilliation Current Medication List: was personally reviewed by me Blood Pressure Screening Patient's blood pressure: Elevated blood pressure Referred to Hospitalist Consults Time Called: 14 Consulting Physician: Dr. Rodriguez [facility] Hospitalist Returned Call: [phone] I discussed the patients case with Dr. Rodriguez [facility] Hospitalist. He understands the patients case and agrees to accept the patient. The patient will be further evaluated. Impression Primary Impression: Supratherapeutic INR Scribe Attestation The scribe's documentation has been prepared under my direction and personally reviewed by me in its entirety. I confirm that the note above accurately reflects all work, treatment, procedures, and medical decision making performed by me. Departure Information Dispostion Being Evaluated By Hospitalist Referrals Bibiana Hightower (PCP) Patient Instructions My [facility]
[2017-12-26] MEDS ORDERED: IV FLUIDS COMPLETED PRN (04:45)
--- NOTE | 2017-12-26 05:44 | History and Physical ---
History & Physical Date & Time of Service: Dec 26, 2017 at 05:33 Chief Complaint: Supratherapeutic Inr Primary Care Physician: Bibiana Hightower History of Present Illness Source: patient, hospital records The patient is a 67-year-old female who presents to the emergency department after being referred by Dr. Butts due to an elevated INR in the outpatient setting. The patient had initially been started on Eliquis after DVT was diagnosed on October 28. She had been diagnosed with ovarian cancer, and had an IVC filter placed in the interim. Last week the Eliquis was stopped, and she was placed on Lovenox bridging to warfarin by Dr. Butts. Patient did have what sounds like a viral diarrheal episode over the past 36 hours, had decreased oral intake during that time as well. She underwent laboratory studies as noted above, with an INR result close to 10, and was then referred into the emergency department for assessment. Past Medical/Surgical History Medical Problems: (1) Ascites (2) Chest pain (3) Chest pain (4) CHEST PAIN NOS (5) Deep vein thrombosis (DVT) of left lower extremity (6) Diarrhea (7) Fall (8) Fracture of left tibial plateau (9) Heart palpitations (10) Hematuria (11) Hyperglycemia (12) Hypertension Nos (13) Left elbow contusion (14) Left elbow contusion (15) Left rib fracture (16) Palpitation (17) Pelvic mass in female (18) Pelvic pain (19) Pneumonia, Organism Nos (20) Superficial thrombosis of left lower extremity (21) Supratherapeutic INR (22) Urinary tract infection (23) UTI (urinary tract infection) Surgical Problems: (1) H/O oophorectomy Family History Hypertension Pneumonia Stroke Social History Smoking Status: Never Smoker Smokeless Tobacco Use: No Alcohol Use: none Drug Use: none Marital Status: single Housing status: lives with family Occupational Status: employed Immunizations History of Influenza Vaccine: Unknown History of Tetanus Vaccine?: Unknown History of Pneumococcal: Unknown History of Hepatitis B Vaccine: No Allergies Coded Allergies: Penicillins (Verified Allergy, Mild, OTHER, 12/26/17) Sulfa Antibiotics (Verified Allergy, Mild, UNKNOWN, 12/26/17) Ciprofloxacin (Verified Allergy, Unknown, Unknown, 12/26/17) Erythromycin (Verified Allergy, Unknown, GI UPSET, 12/26/17) Moxifloxacin (Verified Allergy, Unknown, itching, 12/26/17) Home Medications Scheduled Acetaminophen (Tylenol), 1 TAB PO Q8 Amlodipine (Norvasc), 5 MG PO HS Atenolol (Tenormin), 25 MG PO HS Calcium-Magnesium W/ Vitamin D (Citracal Calcium+D Slow R), 1 TAB PO QAM Cholecalciferol (Vitamin D3), 2,000 CAP PO DAILY Enoxaparin (Lovenox), 95 MG SQ DIRECTED [facility] Natural Products (Osteo Bi-Flex Triple Stre), 1 TAB PO QAM Mometasone Furoate (Nasal) (Mometasone Furoate), 2 SPRAYS VICENTA DAILY Multiple Vitamin (Stress Formula), 1 TAB PO DAILY Probiotic Product (Probiotic), 1 TAB PO DAILY Pyridoxine (Vitamin B6), 100 MG PO QAM Ranitidine Hcl (Zantac), 75 MG PO DIRECTED Saline ([place]), 1 SPRY VICNETA Q8 [chemo], 1 DOSE IV DIRECTED Scheduled PRN Ondansetron Odt (Zofran Odt), 4 MG SL Q6H PRN for Nausea Saline ([place] Nasal Silt), 1 SPRAY NA UD PRN for Nasal Congestion Review of Systems The patient denies chest pain, palpitations, shortness of breath, dyspnea on exertion, cough, lower extremity swelling, sore throat, fevers, chills, sweats, weight change, nausea, vomiting, constipation, abdominal pain, pelvic pain, blood in urine or stool, dysuria, urinary frequency or urgency, lightheadedness , dizziness, headache, memory loss, loss of consciousness, rash, abnormal bruising or bleeding, imbalance, focal or generalized weakness, numbness or tingling in arms or legs, generalized arthralgias or myalgias, back or neck pain, or night sweats. The review of systems is otherwise negative other than for that already noted above, and at least 10 systems have been reviewed. Physical Exam Vital Signs Date Time Temp Pulse Resp B/P (MAP) Pulse Ox O2 Delivery O2 Flow Rate FiO2 12/26/17 02:54 37.4 58 18 153/75 96 Room Air 12/26/17 02:12 59 18 110/51 95 12/26/17 01:14 62 21 126/96 96 Room Air 12/26/17 00:55 78 25 96 Room Air 12/25/17 23:55 68 12/25/17 23:50 63 16 121/70 97 Room Air 12/25/17 23:49 97 Room Air 12/25/17 22:41 36.9 58 16 156/73 94 Room Air The patient is awake, alert and oriented 3, well developed and well nourished, normocephalic and atraumatic, lying in bed and in no acute distress. HEENT--PERRL, EOMI, mucous membranes and oropharynx dry. Neck--supple. No JVD. No bruits. Thyroid normal, trachea midline, no adenopathy. Heart--normal S1 and S2. No murmurs, rubs or gallops. Lungs--clear bilaterally, no respiratory distress, no accessory muscle use. Abdomen--normal bowel sounds and soft. Nontender. Mildly distended and tympanitic. Extremities--no cyanosis or clubbing. No edema. There are good distal pulses b/ l. Dermatologic--normal skin turgor, normal color, no abnormal lymph nodes, no rash. Neurologic--cranial nerves II through XII grossly intact. Rheumatologic--normal range of motion. Psychiatric--normal affect. Diagnostics Laboratory Results Results Past 24 Hours Test 12/25/17 23:15 12/26/17 05:25 Range/Units White Blood Count 8.26 4.8-10.8 K/uL Red Blood Count 4.48 4.2-5.4 M/uL Hemoglobin 13.8 12.0-16.0 g/dL Hematocrit 41.2 37-47 % Mean Corpuscular Volume 92.0 80-100 fL Mean Corpuscular Hemoglobin 30.8 25-34 pg Mean Corpuscular Hemoglobin Concent 33.5 32-36 g/dl Platelet Count 274 130-400 K/uL Mean Platelet Volume 9.7 7.4-10.4 fL Neutrophils (%) (Auto) 84.1 % Lymphocytes (%) (Auto) 10.7 % Monocytes (%) (Auto) 5.0 % Eosinophils (%) (Auto) 0.0 % Basophils (%) (Auto) 0.0 % Neutrophils # (Auto) 6.95 1.4-6.5 K/uL Lymphocytes # (Auto) 0.88 1.2-3.4 K/uL Monocytes # (Auto) 0.41 0.11-0.59 K/uL Eosinophils # (Auto) 0.00 0-0.5 K/uL Basophils # (Auto) 0.00 0-0.2 K/uL RDW Standard Deviation 46.0 36.4-46.3 fL RDW Coefficient of Variation 13.7 11.5-14.5 % Immature Granulocyte % (Auto) 0.2 % Immature Granulocyte # (Auto) 0.02 0.00-0.02 K/uL Prothrombin Time 99.4 9.0-12.0 SECONDS Prothromb Time International Ratio 9.9 0.9-1.1 Activated Partial Thromboplast Time 47.6 21.0-31.0 SECONDS Partial Thromboplastin Ratio 1.8 Sodium Level 137 136-145 mmol/L Potassium Level 3.2 3.5-5.1 mmol/L Chloride Level 105 98-107 mmol/L Carbon Dioxide Level 27 21-32 mmol/L Anion Gap 5.0 3-11 mmol/L Blood Urea Nitrogen 29 7-18 mg/dl Creatinine 0.85 0.60-1.20 mg/dl Est Creatinine Clear Calc Drug Dose 52.9 ml/min Estimated GFR () 82.2 Estimated GFR (Non- 70.9 BUN/Creatinine Ratio 33.7 10-20 Random Glucose 102 70-99 mg/dl Calcium Level 8.8 8.5-10.1 mg/dl Total Bilirubin 0.6 0.2-1 mg/dl Aspartate Amino Transf (AST/SGOT) 74 15-37 U/L Alanine Aminotransferase (ALT/SGPT) 70 12-78 U/L Alkaline Phosphatase 60 45-117 U/L Total Protein 7.6 6.4-8.2 gm/dl Albumin 3.8 3.4-5.0 gm/dl Globulin 3.8 2.5-4.0 gm/dl Albumin/Globulin Ratio 1.0 0.9-2 Impression Assessment and Plan Supratherapeutic INR/left lower extremity DVT/status post IVC filter placement-- Patient was given vitamin K 10 mg p.o. in the ED. Repeat PT/INR in 6 hours, and re-dose as needed. Patient's only sign of bleeding was some minimal hemorrhoidal bleeding. We will consult Dr. Butts for transition to outpatient management. Hold Lovenox and warfarin. Ovarian cancer/status post hysterectomy/undergoing chemotherapy-- Per Dr. Butts. Hypertension--continue atenolol 25 mg in the evening,and amlodipine 5 mg p.o. in the evening. Nutraceuticals-- Increase her probiotics dosing, and continue pyridoxine, multivitamin, Osteo Bi- Flex, vitamin D and Citracal. Advanced Directives Existing Living Will: Yes Existing Power of Fixing Carpenter: Yes Resuscitation Status VTE Prophylaxis Will order VTE Prophylaxis: No Reason for no VTE drug order: Treatment not indicated Reason no Mechanical VTE Order: Treatment not indicated Social Service Consult Cancer Patient Under [place]
[2017-12-26] MEDS: SODIUM CHLORIDE 0.65% NA SOLN 45 ML (OCEAN) NAE SCH ×2 (05:47→14:09)
[2017-12-26 06:22] LABS: INR 7.5 (0.9-1.1)
[2017-12-26] MEDS ORDERED: PYRIDOXINE HCL 50 MG TAB PO SCH (08:00)
[2017-12-26] MEDS ORDERED: CALCIUM 600MG + VIT D 400 IU TAB PO SCH (08:00)
[2017-12-26] MEDS ORDERED: CHOLECALCIFEROL 1000 INTER.UNIT TAB PO SCH (08:00)
[2017-12-26] MEDS: LACTOBACILLUS ACIDOPHILUS (FLORANEX) TAB PO SCH ×3 (08:13→17:00)
[2017-12-26] MEDS ORDERED: POTASSIUM CHLORIDE 20 MEQ TABCR PO ONE (09:30)
[2017-12-26 10:16] LABS: HEMATOCRIT 35.9 % (37-47); HEMOGLOBIN 12.1 g/dL (12.0-16.0); MEAN CELL VOLUME 91.8 fL (80-100); MEAN CORPUSCULAR HEMOGLOBIN 30.9 pg (25-34); MEAN CORPUSCULAR HGB CONC 33.7 g/dl (32-36); PLATELET COUNT 230 K/uL (130-400); RED CELL DISTRIBUTION WIDTH CV 13.6 % (11.5-14.5); RED CELL DISTRIBUTION WIDTH SD 45.6 fL (36.4-46.3); WHITE BLOOD COUNT 6.85 K/uL (4.8-10.8)
[2017-12-26 10:31] LABS: CALCIUM 7.8 mg/dl (8.5-10.1); CREATININE 0.64 mg/dl (0.60-1.20); POTASSIUM 3.2 mmol/L (3.5-5.1)
[2017-12-26] MEDS: ONDANSETRON 4MG OD TAB SL PRN ×2 (10:57→18:35)
--- NOTE | 2017-12-26 11:17 | Oncology Consultation ---
Oncology/Heme Consultation Date of Consultation: Dec 26, 2017. Attending Physician: Alexandru Rodriguez M.D. History of Present Illness History of resected stage 1C ovaian ca. had been on eliquis after being diagnosed with dvt in Oct around surgery and an IVC filter is in pace. Received a phone call with critical lab last evening with increased INR and patient prsented to ER. Admitted [facility] last evening and given oral vitamin K. Received taxl/carbo 2 days ago as adjuvant therapy. There has been no signs of bleeding Past Medical/Surgical History Medical Problems: (1) Ascites Status: Acute (2) Deep vein thrombosis (DVT) of left lower extremity Status: Acute (3) Diarrhea Status: Acute (4) Heart palpitations Status: Acute (5) Hematuria Status: Acute (6) Hyperglycemia Status: Acute (7) Left rib fracture Status: Acute (8) Pelvic mass in female Status: Acute (9) Pelvic pain Status: Acute (10) Superficial thrombosis of left lower extremity Status: Acute (11) Urinary tract infection Status: Acute (12) UTI (urinary tract infection) Status: Acute Family History Hypertension Pneumonia Stroke Social History Smoking Status: Never Smoker Smokeless Tobacco Use: No Alcohol Use: none Drug Use: none Marital Status: single Housing Status: lives alone Occupation Status: employed Allergies Coded Allergies: Penicillins (Verified Allergy, Mild, OTHER, 12/26/17) Sulfa Antibiotics (Verified Allergy, Mild, UNKNOWN, 12/26/17) Ciprofloxacin (Verified Allergy, Unknown, Unknown, 12/26/17) Erythromycin (Verified Allergy, Unknown, GI UPSET, 12/26/17) Moxifloxacin (Verified Allergy, Unknown, itching, 12/26/17) Home Medications Scheduled Acetaminophen (Tylenol), 1 TAB PO Q8 Amlodipine (Norvasc), 5 MG PO HS Atenolol (Tenormin), 25 MG PO HS Calcium-Magnesium W/ Vitamin D (Citracal Calcium+D Slow R), 1 TAB PO QAM Cholecalciferol (Vitamin D3), 2,000 CAP PO DAILY Enoxaparin (Lovenox), 95 MG SQ DIRECTED [facility] [place] Natural Products (Osteo Bi-Flex Triple Stre), 1 TAB PO QAM Mometasone Furoate (Nasal) (Mometasone Furoate), 2 SPRAYS VICENTA DAILY Multiple Vitamin (Stress Formula), 1 TAB PO DAILY Probiotic Product (Probiotic), 1 TAB PO DAILY Pyridoxine (Vitamin B6), 100 MG PO QAM Ranitidine Hcl (Zantac), 75 MG PO DIRECTED Saline ([place]), 1 SPRY VICENTA Q8 [chemo], 1 DOSE IV DIRECTED Scheduled PRN Ondansetron Odt (Zofran Odt), 4 MG SL Q6H PRN for Nausea Saline ([place] Nasal [place]), 1 SPRAY NA UD PRN for Nasal Congestion Current Inpatient Medications Current Inpatient Medications Medications (Trade) Dose Ordered Sig/Taty Route Start Time Stop Time Status Last Admin Dose Admin Acetaminophen (Tylenol Tab) 650 mg Q4H PRN PO 12/26/17 02:00 01/25/18 01:59 12/26/17 06:44 650 MG Amlodipine Besylate (Norvasc Tab) 5 mg HS PO 12/26/17 21:00 01/25/18 20:59 12/26/17 02:46 5 MG Atenolol (Tenormin Tab) 25 mg HS PO 12/26/17 21:00 01/25/18 20:59 12/26/17 02:46 25 MG Ondansetron HCl (Zofran Odt) 4 mg Q6H PRN SL 12/26/17 02:00 01/25/18 01:59 12/26/17 10:57 4 MG Pyridoxine HCl (Vitamin B-6 Tab) 100 mg QAM PO 12/26/17 08:00 01/25/18 08:59 12/26/17 08:14 100 MG Sodium Chloride ([place] Nasal [place]) 1 sprays Q8 VICENTA 12/26/17 06:00 01/25/18 05:59 12/26/17 05:47 1 SPRAYS Calcium/Vitamin D (Caltrate Plus Tab) 1 tab QAM PO 12/26/17 08:00 01/25/18 08:59 12/26/17 08:13 1 TAB Cholecalciferol (Vitamin D Tab) 2,000 inter.unit QAM PO 12/26/17 08:00 01/25/18 08:59 12/26/17 08:13 2,000 INTER.UNIT Lactobacillus Acidophilus (Floranex Tab) 4 tab QIDM PO 12/26/17 08:00 01/25/18 07:59 12/26/17 08:13 4 TAB Ondansetron HCl (Zofran Odt) 8 mg Q6H PRN PO 12/26/17 02:00 01/25/18 01:59 Miscellaneous (Iv Fluids Completed) 1 ea PRN PRN N/A 12/26/17 04:45 12/26/18 04:44 Review of Systems Constitutional: Negative for weight loss, night sweats, or fever Eyes: Negative for event change of vision ENT: Negative for epistaxis, nasal discharge, sore throat, or deafness Cardiovascular: Negative for chest pain, palpitations, dizziness, diaphoresis Respiratory: Negative for new shortness of breath,hemoptysis, or purulent cough Gastrointestinal: Negative for diarrhea, hematemesis, melena, nausea, vomiting , or dyspepsia Integumentary (skin): Negative for rash or jaundice discoloration Genitourinary: Negative for urinary frequency, hematuria, or dysuria Neurological: Negative for weakness, seizure activity, headache, or dizziness Lymphatic/Hematologic: Negative for petechiae, bleeding or new adenopathy Musculoskeletal: Negative for new joint or back pain Allergic/Immunologic: Negative for unusual rash or pruritis. Physical Exam Date Time Temp Pulse Resp B/P (MAP) Pulse Ox O2 Delivery O2 Flow Rate FiO2 12/26/17 08:30 98 Room Air 12/26/17 07:30 36.9 59 16 143/77 (99) 98 Room Air 12/26/17 02:54 37.4 58 18 153/75 96 Room Air 12/26/17 02:12 59 18 110/51 95 12/26/17 01:14 62 21 126/96 96 Room Air 12/26/17 00:55 78 25 96 Room Air 12/25/17 23:55 68 12/25/17 23:50 63 16 121/70 97 Room Air 12/25/17 23:49 97 Room Air 12/25/17 22:41 36.9 58 16 156/73 94 Room Air Constitutional: vitals are stable. Eyes: Eyes are MANJU EOMI without conjuctival erythema or icterus. ENT: External examination was negative for masses. Neck: Negative for masses or palpable thyromegaly Respiratory: Lung sounds were generally clear bilaterally Cardiovascular: Heart was RRR without significant murmur, gallops aoe rubs Gastrointestinal: No palpable hepatic or splenomegaly. The abdomen was soft with normal bowel sounds. Lymphatic system: there was no palpable peripheral lymphadenopathy Musculoskeletal System: The musculoskeletal system seemed concordant with age. Skin: The skin was negative for jaundice. Neurologic exam: The exam was negative for any focal findings. Deep tendon reflexes were equal and symmetrical. Psychiatric exam: Was essentially negative with normal mood and effect. Breast exam: not done today Extremities: negative for edema Laboratory Results Last 24 Hours Test 12/25/17 23:15 12/26/17 05:25 12/26/17 10:36 White Blood Count 8.26 K/uL 6.85 K/uL Red Blood Count 4.48 M/uL 3.91 M/uL Hemoglobin 13.8 g/dL 12.1 g/dL Hematocrit 41.2 % 35.9 % Mean Corpuscular Volume 92.0 fL 91.8 fL Mean Corpuscular Hemoglobin 30.8 pg 30.9 pg Mean Corpuscular Hemoglobin Concent 33.5 g/dl 33.7 g/dl Platelet Count 274 K/uL 230 K/uL Mean Platelet Volume 9.7 fL 10.0 fL Neutrophils (%) (Auto) 84.1 % Lymphocytes (%) (Auto) 10.7 % Monocytes (%) (Auto) 5.0 % Eosinophils (%) (Auto) 0.0 % Basophils (%) (Auto) 0.0 % Neutrophils # (Auto) 6.95 K/uL Lymphocytes # (Auto) 0.88 K/uL Monocytes # (Auto) 0.41 K/uL Eosinophils # (Auto) 0.00 K/uL Basophils # (Auto) 0.00 K/uL RDW Standard Deviation 46.0 fL 45.6 fL RDW Coefficient of Variation 13.7 % 13.6 % Immature Granulocyte % (Auto) 0.2 % Immature Granulocyte # (Auto) 0.02 K/uL Prothrombin Time 99.4 SECONDS 75.4 SECONDS Prothromb Time International Ratio 9.9 7.5 Activated Partial Thromboplast Time 47.6 SECONDS Partial Thromboplastin Ratio 1.8 Sodium Level 137 mmol/L 138 mmol/L Potassium Level 3.2 mmol/L 3.2 mmol/L Chloride Level 105 mmol/L 107 mmol/L Carbon Dioxide Level 27 mmol/L 27 mmol/L Anion Gap 5.0 mmol/L 4.0 mmol/L Blood Urea Nitrogen 29 mg/dl 23 mg/dl Creatinine 0.85 mg/dl 0.64 mg/dl Est Creatinine Clear Calc Drug Dose 52.9 ml/min 70.3 ml/min Estimated GFR () 82.2 107.0 Estimated GFR (Non- 70.9 92.3 BUN/Creatinine Ratio 33.7 36.0 Random Glucose 102 mg/dl 98 mg/dl Calcium Level 8.8 mg/dl 7.8 mg/dl Total Bilirubin 0.6 mg/dl Aspartate Amino Transf (AST/SGOT) 74 U/L Alanine Aminotransferase (ALT/SGPT) 70 U/L Alkaline Phosphatase 60 U/L Total Protein 7.6 gm/dl Albumin 3.8 gm/dl Globulin 3.8 gm/dl Albumin/Globulin Ratio 1.0 Magnesium Level 2.2 mg/dl Assessment & Plan 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 INR this am around 5:30 was 7.5. Thee has been more literature that demonstrates the the DOAC's like eliquis (apixaban) are not inferior to heparins in the setting. Dagmar like to ge her back then on eliquis and off coumadin/LMWH. wWouwilmer like to resume eliquis at 5 mg BID once INR closer to or less than 2.0. Will update another INR now.
[2017-12-26 11:48] LABS: INR 3.5 (0.9-1.1)
[2017-12-26 15:13] LABS: INR 2.4 (0.9-1.1)
[2017-12-26] MEDS ORDERED: APIX1TAB3 PO ×2 (15:50)
--- NOTE | 2017-12-26 15:54 | Discharge Instructions ---
Discharge Instructions Date of Service Dec 26, 2017. Admission Reason for Admission: Supratherapeutic Inr Discharge Discharge Diagnosis / Problem: Supratherapeutic INR Discharge Goals Goal(s): Diagnostic testing, Therapeutic intervention Activity Recommendations Activity Limitations: resume your previous activity . Instructions / Follow-Up Instructions / Follow-Up You were admitted to the hospital due to an elevated INR of 9.9. Your recent bout of diarrhea and decreased oral intake likely contributed to this. Your INR was reversed with vitamin K and is now down to 2.4. You were evaluated by hematology and will be placed back on Eliquis, which you tolerated well. You will follow up with the anticoagulation clinic on Saturday. Medications: *STOP Lovenox and warfarin. *Please take Eliquis 5 mg twice a day. Please start your first dose tonight around 8 pm. *Continue your other home medications as prescribed. Follow up: *You have been scheduled to follow up with your primary care provider and the anticoagulation clinic next week. Please seek medical attention if you experience fevers, chills, sweats, dizziness/lightheadedness, loss of consciousness, chest pain, shortness of breath, nausea, vomiting, numbness or tingling. Current Hospital Diet Patient's current hospital diet: Regular Diet Discharge Diet Recommended Diet: AHA Diet (Heart Healthy) Pending Studies Studies pending at discharge: yes List of pending studies: Stool studies Medical Emergencies . Who to Call and When: Medical Emergencies: If at any time you feel your situation is an emergency, please call 911 immediately. . Non-Emergent Contact Non-Emergency issues call your: Primary Care Provider, Oncologist, Specialist ( anticoagulation clinic) . . "Provider Documentation" section prepared by Yeimy Anthony. .
--- NOTE | 2017-12-26 16:05 | Discharge Summary ---
Discharge Summary Date of Service Dec 26, 2017. Discharge Summary Admission Date: Dec 26, 2017 at 01:46 Discharge Date: Dec 26, 2017 Discharge Disposition: Home Principal Diagnosis: Supratherapeutic INR Problems/Secondary Diagnoses: Diarrhea Hypokalemia HTN IBS h/o DVT Ovarian cancer stage I s/p total hysterectomy h/o endometriosis Anxiety GERD Immunizations: Have You Had Influenza Vaccine: Unknown History of Tetanus Vaccine?: Unknown History of Pneumococcal: Unknown History of Hepatitis B Vaccine: No Procedures: None Consultations: Hematology Medication Reconciliation New Medications: Apixaban (Eliquis) 5 Mg Tab 5 MG PO BID for 30 Days, #60 TAB Continued Medications: Acetaminophen (Tylenol) 500 Mg Tab 1 TAB PO Q8, TAB Amlodipine (Norvasc) 5 Mg Tab 5 MG PO HS, TAB Atenolol (Tenormin) 25 Mg Tab 25 MG PO HS, TAB Calcium-Magnesium W/ Vitamin D (Citracal Calcium+D Slow R) 1 Tab Tab 1 TAB PO QAM Cholecalciferol (Vitamin D3) 2,000 Unit Cap 2000 CAP PO DAILY, CAP Misc Natural Products (Osteo Bi-Flex Triple Stre) 1 Tab Tab 1 TAB PO QAM Mometasone Furoate (Nasal) (Mometasone Furoate) 50 Mcg/Act Spr 2 SPRAYS VICENTA DAILY Multiple Vitamin (Stress Formula) 1 Tab Tab 1 TAB PO DAILY Ondansetron Odt (Zofran Odt) 8 Mg Soltab 4 MG SL Q6H PRN for Nausea, TAB Probiotic Product (Probiotic) 1 Tab Tab 1 TAB PO DAILY optiflora Pyridoxine (Vitamin B6) 100 Mg Tab 100 MG PO QAM, TAB Saline ([place] Nasal [place]) 0.65 % Spr 1 SPRAY NA UD PRN for Nasal Congestion USE PER PACKAGE DIRECTIONS Saline ([place]) 0.65 % Spr 1 SPRY VICENTA Q8, ML [chemo] () 1 DOSE IV DIRECTED receives treatment q21 days Discontinued Medications: Enoxaparin (Lovenox) 120 Mg/0.8 Ml Inj 95 MG SQ DIRECTED, SYR Ranitidine Hcl (Zantac) 75 Mg Tab 75 MG PO DIRECTED, TAB Discharge Exam The patient reports feeling well. She does complain of some mild 3/10 aches in her shoulders and legs. She had some nausea earlier but this is now resolved. She otherwise denies complaints. The patient denies fevers, chills, sweats, chest pain, palpitations, claudication, cough, wheezing, shortness of breath, vomiting, abdominal pain, dysuria, hematuria, urinary retention, paralysis, weakness, numbness and tingling. Constitutional: No fever, No chills, No sweats Eyes: No worsening of vision, No eye pain, No diplopia ENT: No hearing loss, No nasal symptoms, No trouble swallowing Respiratory: No cough, No wheezing, No shortness of breath Cardiovascular: No chest pain, No claudication, No palpitations Abdomen: +Nausea. No pain, No vomiting Musculoskeletal: +B/l shoulder and leg aches. No muscle pain, No swelling Genitourinary - Female: No dysuria, No urinary retention, No hematuria Neurologic: No paralysis, No weakness, No numbness/tingling Integumentary: No rash, No itch, No color change General appearance: Well-developed, well-nourished, no apparent distress Head: Normocephalic, atraumatic Eyes: Normal inspection, PERRL, EOMI ENT: Normal ENT inspection, hearing grossly normal, pharynx normal Neck: Supple, no JVD, trachea midline Respiratory/Chest: Lungs clear to auscultation, normal breath sounds, no respiratory distress Cardiovascular: Regular rate & rhythm, no gallop, no murmur Abdomen/GI: Normal bowel sounds, non-tender, soft Extremities/Musculoskeletal: Normal inspection, no calf tenderness, no pedal edema Neurological/Psych: Alert, normal mood/affect, oriented x 3 Skin: Normal color, warm/dry, no rash Hospital Course 67 y/o female with a history of HTN, IBS, h/o DVT, ovarian cancer stage I s/p total hysterectomy, h/o endometriosis, anxiety, and GERD who presents with supratherapeutic INR of 9.9. Pt was diagnosed with DVT 10/28/17 and placed on Eliquis. She then was diagnosed with ovarian cancer. Prior to her total hysterectomy done in [place], she had an IVC filter placed. Last week she was transitioned off Eliquis to a Lovenox/warfarin bridge. Supratherapeutic INR, h/o DVT in setting of ovarian cancer--resolving -Admit to med/surg for obs -Lovenox and warfarin 5 mg stopped -Given vitamin K 10 mg PO x 1 -INR trending down: 9.9 --> 7.5 --> 3.5 --> 2.4 -Spoke to Dr. Abdul of anticoagulation clinic. Ok to start Eliquis tonight. Will f/u on Saturday. No need for repeat INR -No hemorrhage, just minimal blood with wiping due to hemorrhoids -F/u with oncology, pt on chemo and s/p total hysterectomy Hypokalemia -Potassium 3.2, given KCl 40 mEq PO x1 -Magnesium WNL Recent diarrhea--still ongoing and may be related to chemotherapy. Clostridium difficile antigen was negative on 12/25 -Stool cultures, Shiga, and WBC smear pending. F/u with PCP -Continue probiotic HTN--stable -Continue Norvasc 5 mg PO qd and atenolol 25 mg PO qd Anxiety -Pt states she rarely takes Ativan, has Rx for 0.25 mg PO BID-TID prn per [employer] DVT prophylaxis -INR was supratherapeutic, will resume Eliquis tonight Code Status -Level I, FULL RESUSCITATION STATUS Total Time Spent: Greater than 30 minutes This includes examination of the patient, discharge planning, medication reconciliation, and communication with other providers. Discharge Instructions Please refer to the electronic Patient Visit Report (Discharge Instructions) for additional information. Follow-Up With PCP within 1 week With oncology as scheduled Additional Copies To Bibiana Hightower Reviewed: Pt Seen/Exam by Me History Physician Morning Babysitter supervision Note: I interviewed and examined the patient. Discussed with LORENA Anthony and agree with findings and plan as documented in the note. Any exceptions or clarifications are listed here: Patient still having some loose stools this afternoon, nonbloody, no abdominal pain. She is tolerating p.o. and able to drink plenty of fluids. She reports the loose stools started about 2 days prior to her first chemotherapy treatment , but may be worse now than previously. She had a C. difficile antigen test done yesterday that was negative on my review of the labs. We sent off for stool culture, fecal leukocytes, and stool Gram stain today while she was here. Otherwise, her Coumadin coagulopathy was reversed with vitamin K and her INR has trended down nicely. It is now safe for her to start the Eliquis 5 mg p.o. twice daily this evening. She will have close follow-up with the anticoagulation clinic, with hematology/oncology, as well as her PCP. She has no evidence of significant bleeding. -I advised her to call her PCP office tomorrow to follow-up on the results of the stool studies sent today. If these are negative, she can certainly take loperamide as needed for her diarrhea which may now be associated with her chemotherapy. Vitals reviewed Gen: AAOx3, NAD HEENT: anicteric sclerae, EOMI CV: RRR no mgr nl S1S2 Pulm: CTAB no wcr Abd: +BS soft NT ND no masses or hernias Ext: no edema, 2+ DP pulses Skin: no rashes, warm/dry Neuro: full strength throughout Documented By: Ne Hernandez
[2017-12-26] MEDS ORDERED: AMLODIPINE BESYLATE 5 MG TAB PO SCH (21:00)
== END 2017-12-26 18:45 | disposition home or self-care (01) ==
LOC: C.EDB 22:40 → C.4E 12-26 01:46 → ENRESERV 12-26 02:05
PROVIDERS: ADMIT Hospitalist; ATTEND Hospitalist
DX: R79.1 Abnormal coagulation profile (principal); R19.7 Diarrhea, unspecified; E87.6 Hypokalemia; I10 Essential (primary) hypertension; K58.9 Irritable bowel syndrome, unspecified; Z86.718 Personal history of other venous thrombosis and embolism; C56.9 Malignant neoplasm of unspecified ovary; Z90.710 Acquired absence of both cervix and uterus; F41.9 Anxiety disorder, unspecified; K21.9 Gastro-esophageal reflux disease without esophagitis; Z79.01 Long term (current) use of anticoagulants; Z79.899 Other long term (current) drug therapy; Z88.1 Allergy status to other antibiotic agents; Z88.2 Allergy status to sulfonamides; Z82.49 Family history of ischemic heart disease and other diseases of the circulatory system; Z82.3 Family history of stroke; Z80.0 Family history of malignant neoplasm of digestive organs

== ENCOUNTER → 2017-12-25 | Outpatient (CLI) | payer OTHER ==
[~2017-12-25] MED LIST changes: +APIX1TAB3 PO; +CHOLPOW PO; +ENOX120I SQ; +ONDA8TAB62 SL; +chemo IV
== END | disposition home or self-care (01) ==
LOC: C.LABPVFM 17:55
PROVIDERS: ATTEND Physician Assistant
DX: R19.7 Diarrhea, unspecified (principal)

== ENCOUNTER 2017-12-29 05:55 | Emergency (ER) | payer OTHER ==
[~2017-12-29] VITALS: Ht 157.5 cm; Wt 61.1 kg
[~2017-12-29 05:55] MED LIST changes: +APIX1TAB3 PO; -CHOL2000 PO; -HYOS1TAB PO; -ONDA4TAB10 SL; +ONDA8TAB62 SL; -OXYC1TAB3 PO; -RANITAB33 PO; +chemo IV
[2017-12-29 06:08] VITALS: TEMP 37; Ht 157.5 cm; Wt 61.1 kg
[2017-12-29] MEDS ORDERED: APIX1TAB3 PO (06:34)
[2017-12-29 06:38] LABS: BASO % 0.3 %; BASO ABS # 0.01 K/uL (0-0.2); EOS % 4.5 %; EOS ABS # 0.17 K/uL (0-0.5); HEMATOCRIT 40.6 % (37-47); HEMOGLOBIN 14.3 g/dL (12.0-16.0); IG# 0.02 K/uL (0.00-0.02); LYMPH % 19.6 %; LYMPH ABS # 0.74 K/uL (1.2-3.4); MEAN CELL VOLUME 92.1 fL (80-100); MEAN CORPUSCULAR HEMOGLOBIN 32.4 pg (25-34); MEAN CORPUSCULAR HGB CONC 35.2 g/dl (32-36); MEAN PLATELET VOLUME 10.4 fL (7.4-10.4); MONO % 1.9 %; MONO ABS # 0.07 K/uL (0.11-0.59); NEUT % 73.2 %; NEUT ABS # 2.77 K/uL (1.4-6.5); PLATELET COUNT 224 K/uL (130-400); RED CELL DISTRIBUTION WIDTH CV 13.1 % (11.5-14.5); RED CELL DISTRIBUTION WIDTH SD 44.1 fL (36.4-46.3); WHITE BLOOD COUNT 3.78 K/uL (4.8-10.8)
[2017-12-29 06:52] LABS: ALBUMIN 3.8 gm/dl (3.4-5.0); CALCIUM 9.6 mg/dl (8.5-10.1); CREATININE 0.78 mg/dl (0.60-1.20); POTASSIUM 3.8 mmol/L (3.5-5.1)
[2017-12-29 06:54] LABS: TOTAL PROTEIN 7.6 gm/dl (6.4-8.2)
[2017-12-29 06:59] LABS: INR 1.1 (0.9-1.1); PTT PATIENT 26.5 SECONDS (21.0-31.0)
[2017-12-29] MEDS ORDERED: SODIUM CHLORIDE 0.9% 1000ML 1,000 ML IV STA (07:17)
[2017-12-29 07:46] LABS: ALBUMIN 3.7 gm/dl (3.4-5.0); TOTAL PROTEIN 7.5 gm/dl (6.4-8.2)
[2017-12-29] MEDS ORDERED: CHOLPOW PO (08:22)
[2017-12-29 09:04] VITALS: BP 129/63; PULSE 70; O2SAT 98
--- NOTE | 2017-12-29 09:12 | EMERGENCY ROOM VISIT NOTE ---
History First contact with patient: 07:04 Chief Complaint: DIARRHEA Stated Complaint: DIARRHEA Nursing Triage Summary: Patient reports she started with diarrhea last Saturday and then had chemotherapy Saturday. Patient then developed watery diarrhea Saturday evening. Patient then was admitted to the hospital Saturday evening for an INR greater than 10. Patient was discharged and had diarrhea off and on since then. Patient reports she has ovarian cancer, had a hysterectomy November 13, and has a hx camplobactor in her colon. Patient was taking coumadin for a DVT in her left leg. Patient reports lower abdominal pain radiating to left flank. History of Present Illness The patient is a 67 year old female who presents to the Emergency Room with complaints of diarrhea. The patient states that she had diarrhea last Saturday but then got better Saturday and Saturday. She then had chemotherapy which was her first treatment on Saturday. That evening she started with watery diarrhea. She was admitted to the hospital on Saturday for an INR greater than 10. She was on Coumadin at that time. They have since then held her Coumadin and she started Eliquis on Saturday. She was discharged and then followed up with her PCP who did stool cultures. She does not know of the results. She denies any associated fever, nausea vomiting or abdominal pain. She states she does get some cramping in the abdomen but as soon as she moves her bowels it is rated leave. She called Dr. Root, oncology yesterday and he told her how to take Imodium. She states that he stopped yesterday evening but then she woke up at 1 AM and has had persistent watery stools. That is why she came to the emergency room. Review of Systems 10 system review was performed and was negative unless stated otherwise history of present illness. Past Medical/Surgical History Medical Problems: (1) Hypertension Nos (2) Pneumonia, Organism Nos (3) Supratherapeutic INR Surgical Problems: (1) H/O oophorectomy Family History Hypertension Pneumonia Stroke Social History Smoking Status: Never Smoker Alcohol Use: none Drug Use: none Marital Status: single Housing Status: lives alone Occupation Status: employed Current/Historical Medications Scheduled Amlodipine (Norvasc), 5 MG PO HS Apixaban (Eliquis), 5 MG PO BID Atenolol (Tenormin), 25 MG PO HS Calcium-Magnesium W/ Vitamin D (Citracal Calcium+D Slow R), 1 TAB PO QAM Cholecalciferol (Vitamin D3), 2,000 CAP PO BID Cholestyramine (Bulk) (Cholestyramine), 4 GM PO BID Misc Natural Products (Osteo Bi-Flex Triple Stre), 1 TAB PO QAM Mometasone Furoate (Nasal) (Mometasone Furoate), 2 SPRAYS VICENTA DAILY Multiple Vitamin (Stress Formula), 1 TAB PO DAILY Probiotic Product (Probiotic), 1 TAB PO DAILY Pyridoxine (Vitamin B6), 100 MG PO QAM Saline ([place]), 1 SPRY VICENTA Q8 [chemo], 1 DOSE IV DIRECTED Scheduled PRN Acetaminophen (Tylenol), 1 TAB PO Q8 PRN for Pain Ondansetron Odt (Zofran Odt), 4 MG SL Q6H PRN for Nausea Saline ([place] Nasal [place]), 1 SPRAY NA UD PRN for Nasal Congestion Physical Exam Vital Signs Date Time Temp Pulse Resp B/P (MAP) Pulse Ox O2 Delivery O2 Flow Rate FiO2 12/29/17 07:40 71 18 143/63 99 Room Air 12/29/17 06:08 37.0 82 18 152/82 97 Room Air Physical Exam GENERAL: 67-year-old white female appears in no acute distress. MENTAL STATUS: Alert and oriented 3. MOUTH: Mucosa is moist NECK: Supple, no lymphadenopathy noted. No carotid bruits noted. LUNGS: Clear auscultation without wheezes rales or rhonchi. CARDIAC: Regular rate and rhythm without murmur. Pulses is full and equal throughout. BACK: No CVA tenderness noted. ABDOMEN: Positive hyperactive bowel sounds all 4 quadrants. Soft, nontender to palpation without organomegaly or masses. EXTREMITIES: No cyanosis or edema noted. Medical Decision & Procedures Laboratory Results 12/29/17 06:15 Red Blood Count 4.41, Mean Corpuscular Volume 92.1, Mean Corpuscular Hemoglobin 32.4, Mean Corpuscular Hemoglobin Concent 35.2, Mean Platelet Volume 10.4, Neutrophils (%) (Auto) 73.2, Lymphocytes (%) (Auto) 19.6, Monocytes (%) (Auto) 1.9, Eosinophils (%) (Auto) 4.5, Basophils (%) (Auto) 0.3, Neutrophils # (Auto) 2.77, Lymphocytes # (Auto) 0.74, Monocytes # (Auto) 0.07, Eosinophils # (Auto) 0.17, Basophils # (Auto) 0.01 12/29/17 06:15 Test 12/29/17 06:15 White Blood Count 3.78 K/uL (4.8-10.8) Red Blood Count 4.41 M/uL (4.2-5.4) Hemoglobin 14.3 g/dL (12.0-16.0) Hematocrit 40.6 % (37-47) Mean Corpuscular Volume 92.1 fL (80-100) Mean Corpuscular Hemoglobin 32.4 pg (25-34) Mean Corpuscular Hemoglobin Concent 35.2 g/dl (32-36) Platelet Count 224 K/uL (130-400) Mean Platelet Volume 10.4 fL (7.4-10.4) Neutrophils (%) (Auto) 73.2 % Lymphocytes (%) (Auto) 19.6 % Monocytes (%) (Auto) 1.9 % Eosinophils (%) (Auto) 4.5 % Basophils (%) (Auto) 0.3 % Neutrophils # (Auto) 2.77 K/uL (1.4-6.5) Lymphocytes # (Auto) 0.74 K/uL (1.2-3.4) Monocytes # (Auto) 0.07 K/uL (0.11-0.59) Eosinophils # (Auto) 0.17 K/uL (0-0.5) Basophils # (Auto) 0.01 K/uL (0-0.2) RDW Standard Deviation 44.1 fL (36.4-46.3) RDW Coefficient of Variation 13.1 % (11.5-14.5) Immature Granulocyte % (Auto) 0.5 % Immature Granulocyte # (Auto) 0.02 K/uL (0.00-0.02) Prothrombin Time 11.3 SECONDS (9.0-12.0) Prothromb Time International Ratio 1.1 (0.9-1.1) Activated Partial Thromboplast Time 26.5 SECONDS (21.0-31.0) Partial Thromboplastin Ratio 1.0 Anion Gap 6.0 mmol/L (3-11) Est Creatinine Clear Calc Drug Dose 60.2 ml/min Estimated GFR () 91.2 Estimated GFR (Non- 78.7 BUN/Creatinine Ratio 20.6 (10-20) Calcium Level 9.6 mg/dl (8.5-10.1) Total Bilirubin 0.9 mg/dl (0.2-1) Direct Bilirubin 0.2 mg/dl (0-0.2) Aspartate Amino Transf (AST/SGOT) 28 U/L (15-37) Alanine Aminotransferase (ALT/SGPT) 53 U/L (12-78) Alkaline Phosphatase 61 U/L (45-117) Total Protein 7.5 gm/dl (6.4-8.2) Albumin 3.7 gm/dl (3.4-5.0) Globulin 3.8 gm/dl (2.5-4.0) Albumin/Globulin Ratio 1.0 (0.9-2) Lipase 116 U/L (73-393) Date/Time Source Procedure Growth Status 12/29/17 06:15 Stool C.difficile Toxin B Gene (PCR) - Final No C. difficile toxin B gene detected Complete Medications Administered Medications (Trade) Dose Ordered Sig/Taty Route Start Time Stop Time Status Last Admin Dose Admin Sodium Chloride 1,000 ml @ 999 mls/hr Q1H1M STAT IV 12/29/17 07:17 12/29/17 08:17 DC 12/29/17 07:40 999 MLS/HR ECG Per My Interpretation Indication: weakness Rhythm: normal sinus Findings: no acute ischemic change ED Course The patient was evaluated. The patient's EMR medication list were reviewed. The patient's stool cultures from December 26 revealed no evidence of bacteria and WBCs was negative. A C. difficile was not obtained. IV access was obtained. The patient was given 1 L normal saline wide open. EKG was ordered interpreted as above. CBC and differential, renal profile, LFTs and lipase levels were ordered. Coags were ordered. Labs are reviewed and white count was low at 3.70 otherwise unremarkable. Stool cultures were again obtained. Stool for C. difficile was negative. She did not have a bowel movement while in the ER. Patient's case was discussed and independently evaluated with Dr. Reese who agrees with treatment plan. The patient was discharged home in stable condition. Medical Decision The patient recently had stool cultures but those will be repeated. C. difficile was obtained since this had not been ordered. I think that her increased diarrhea is due to her chemotherapy. She only gets chemotherapy every 21 days hopefully this will resolve in a few days. She was given a prescription for cholecystermine for her diarrhea. I do not feel imaging was necessary on this patient. [place] Drug Monitoring Program Search Results: patient reviewed within database Medication Reconcilliation Current Medication List: was personally reviewed by me Blood Pressure Screening Patient's blood pressure: Normal blood pressure Impression Primary Impression: Diarrhea Departure Information Dispostion Home / Self-Care Condition GOOD Prescriptions Cholestyramine (Bulk) (CHOLESTYRAMINE) 1 Pow Pow 4 GM PO BID for Diarrhea, #80 GM Prov: Dior Hinojosa PA-C 12/29/17 Referrals Bibiana HightowerPTonia (PCP) Forms WORK / SCHOOL INSTRUCTIONS, HOME CARE DOCUMENTATION FORM, IMPORTANT VISIT INFORMATION Patient Instructions My [facility] Additional Instructions Push fluids. Take the cholestyramine as prescribed. Call your oncologist up tomorrow and let him know you were in the ER today and what we prescribed for her diarrhea. Make sure that it is okay with him for you to continue this medicine. If symptoms worsen, return to ER. Problem Qualifiers Primary Impression: Diarrhea Diarrhea type: unspecified type Qualified Codes: R19.7 - Diarrhea, unspecified
--- NOTE | 2017-12-29 12:59 | EMERGENCY ROOM VISIT NOTE ---
ED Visit Note First contact with patient: 07:04 I have personally seen and evaluated the patient with the PA. I agree with the diagnosis and management decisions and have been personally involved in the case. Please see Etta Hinojosa PA-C's notes for further details of the history, physical and visit.
[2018-01-04] MEDS ORDERED: CHOL2000 PO (08:28)
== END 2017-12-29 09:23 | disposition home or self-care (01) ==
LOC: C.EDB 05:56
DX: R19.7 Diarrhea, unspecified (principal); I10 Essential (primary) hypertension; Z79.899 Other long term (current) drug therapy

== ENCOUNTER 2017-12-29 10:53 | Emergency (ER) | payer OTHER ==
[~2017-12-29] VITALS: Ht 152.4 cm; Wt 60.2 kg
[~2017-12-29 10:53] MED LIST changes: +CHOL2000 PO; +CHOLPOW PO
[2017-12-29 10:57] VITALS: Ht 152.4 cm; Wt 60.2 kg
[2017-12-29] MEDS ORDERED: ONDANSETRON INJ 2 MG/ML 2 ML VIAL IV STA (11:04)
[2017-12-29] MEDS ORDERED: OPTIRAY 320 IV PRN (11:15)
--- NOTE | 2017-12-29 13:00 | EMERGENCY ROOM VISIT NOTE ---
ED Visit Note First contact with patient: 10:59 I have personally seen and evaluated the patient with the PA. I agree with the diagnosis and management decisions and have been personally involved in the case. Please see Etta Hinojosa PA-C's notes for further details of the history, physical and visit.
--- NOTE | 2017-12-29 14:01 | DIAGNOSTIC IMAGING REPORT ---
ADDENDUM Following conversation with that condition, the 7 cm cystic process of the a left hemipelvis is most likely a postoperative seroma. A 4-6 month follow-up CT scan is suggested as follow-up. Electronically signed by: Isra Hinojosa M.D. 01/01/2018 11:01 AM Dictated Date/Time: 01/01/2018 10:57 AM ORIGINAL REPORT ABD/PELVIS IV AND ORAL CONT CT DOSE: 274.96 mGy.cm HISTORY: Bowel change severe diarrhea TECHNIQUE: Multiaxial CT images of the abdomen and pelvis were performed following the use of intravenous and oral contrast. A dose lowering technique was utilized adhering to the principles of ALARA. COMPARISON STUDY: 10/23/2017 FINDINGS: Minimal dependent basilar atelectasis. Fixed hiatal hernia. Mild fatty replacement of the liver. Partial wall calcification lateral margin of the gallbladder. Interval resolution of the ascites procedure described. Unremarkable adrenal glands. The kidneys enhance uniformly. Interval placement of an inferior vena caval filter. Possible annular lesion of the cecum versus incomplete opacification. Trace amount of pelvic ascites. Latter is midline. Complex ovarian cystic process is diminished in prominence and now appears to have a maximum dimension of 7.7 cm diminished from 11.4 cm. The internal septations and peripheral irregularity appears to be considerably improved with no significant residual. Findings of mild wall edema of the proximal to mid sigmoid colon suggesting a mild colitis. There is a trace amount of pericolonic infiltrative change. There is been interval midline incision. Patient is components of the appendix are unremarkable. IMPRESSION: 1. Mixed findings compared to the prior study. 2. near complete resolution of the ascites previously described. 3. Mild fatty replacement of the liver. 4. Interval placement of an inferior vena caval filter. 5. Interval decrease in size and complexity of the left ovarian cystic lesion now having a maximum dimension is 7.7 cm. This remains abnormal for age. 6. Mild nonspecific colitis of the proximal to mid sigmoid colon. 7. No evidence for abscess collection or obstruction. 2. The above report was generated using voice recognition software. It may contain grammatical, syntax or spelling errors. Electronically signed by: Isra Hinojosa M.D. 12/29/2017 2:00 PM Dictated Date/Time: 12/29/2017 1:52 PM
--- NOTE | 2017-12-29 14:18 | EMERGENCY ROOM VISIT NOTE ---
History First contact with patient: 10:59 Chief Complaint: DIARRHEA Stated Complaint: DIARRHEA Nursing Triage Summary: Pt states she was just here this morning and went to [facility] to get prescriptions and used the bathroom and felt sick again so came back. Diarrhea. Started chemo recently. History of Present Illness The patient is a 67 year old female who presents to the Emergency Room with complaints of recurrent nausea and diarrhea. Patient just left the ER approximately an hour ago and went to [facility] to get her medication for her diarrhea but when she was there she felt nauseous and went to the bathroom and had an episode of diarrhea. We had discussed the possibility of a CAT scan when she was here earlier but at that time she wanted to wait if the medication would work for the diarrhea. The patient had diarrhea last Saturday and it was getting better which she had her first chemo treatment on Saturday and then the symptoms worsen. The patient denies any history of diverticulitis but does admit to history of diverticulosis. This was seen on a colonoscopy. The patient states that she got nervous and thought she should come back for the CAT scan. Review of Systems 10 system review was performed and was negative unless stated otherwise history of present illness. Past Medical/Surgical History Medical Problems: (1) Hypertension Nos (2) Pneumonia, Organism Nos (3) Supratherapeutic INR Surgical Problems: (1) H/O oophorectomy Family History Hypertension Pneumonia Stroke Social History Smoking Status: Never Smoker Alcohol Use: none Drug Use: none Marital Status: single Housing Status: lives alone Occupation Status: employed Current/Historical Medications Scheduled Amlodipine (Norvasc), 5 MG PO HS Apixaban (Eliquis), 5 MG PO BID Atenolol (Tenormin), 25 MG PO HS Calcium-Magnesium W/ Vitamin D (Citracal Calcium+D Slow R), 1 TAB PO QAM Cholecalciferol (Vitamin D3), 2,000 CAP PO BID Cholestyramine (Bulk) (Cholestyramine), 4 GM PO BID Misc Natural Products (Osteo Bi-Flex Triple Stre), 1 TAB PO QAM Mometasone Furoate (Nasal) (Mometasone Furoate), 2 SPRAYS VICENTA DAILY Multiple Vitamin (Stress Formula), 1 TAB PO DAILY Probiotic Product (Probiotic), 1 TAB PO DAILY Pyridoxine (Vitamin B6), 100 MG PO QAM Saline ([place]), 1 SPRY VICENTA Q8 [chemo], 1 DOSE IV DIRECTED Scheduled PRN Acetaminophen (Tylenol), 1 TAB PO Q8 PRN for Pain Ondansetron Odt (Zofran Odt), 4 MG SL Q6H PRN for Nausea Saline (Glenn Nasal [place]), 1 SPRAY NA UD PRN for Nasal Congestion Physical Exam Vital Signs Date Time Temp Pulse Resp B/P (MAP) Pulse Ox O2 Delivery O2 Flow Rate FiO2 12/29/17 14:07 82 18 137/75 97 Room Air 12/29/17 12:07 85 20 121/66 99 12/29/17 10:57 37.1 90 16 123/73 95 Room Air Physical Exam GENERAL: 67-year-old white female appears in no acute distress. MENTAL STATUS: Alert and oriented 3. MOUTH: Mucosa is moist NECK: Supple, no lymphadenopathy noted. No carotid bruits noted. LUNGS: Clear auscultation without wheezes rales or rhonchi. CARDIAC: Regular rate and rhythm without murmur. Pulses is full and equal throughout. BACK: No CVA tenderness noted. ABDOMEN: Positive hyperactive bowel sounds all 4 quadrants. Soft, nontender to palpation without organomegaly or masses. EXTREMITIES: No cyanosis or edema noted. Medical Decision & Procedures ER Provider Diagnostic Interpretation: ABD/PELVIS IV AND ORAL CONT CT DOSE: 274.96 mGy.cm HISTORY: Bowel change severe diarrhea TECHNIQUE: Multiaxial CT images of the abdomen and pelvis were performed following the use of intravenous and oral contrast. A dose lowering technique was utilized adhering to the principles of ALARA. COMPARISON STUDY: 10/23/2017 FINDINGS: Minimal dependent basilar atelectasis. Fixed hiatal hernia. Mild fatty replacement of the liver. Partial wall calcification lateral margin of the gallbladder. Interval resolution of the ascites procedure described. Unremarkable adrenal glands. The kidneys enhance uniformly. Interval placement of an inferior vena caval filter. Possible annular lesion of the cecum versus incomplete opacification. Trace amount of pelvic ascites. Latter is midline. Complex ovarian cystic process is diminished in prominence and now appears to have a maximum dimension of 7.7 cm diminished from 11.4 cm. The internal septations and peripheral irregularity appears to be considerably improved with no significant residual. Findings of mild wall edema of the proximal to mid sigmoid colon suggesting a mild colitis. There is a trace amount of pericolonic infiltrative change. There is been interval midline incision. Patient is components of the appendix are unremarkable. IMPRESSION: 1. Mixed findings compared to the prior study. 2. near complete resolution of the ascites previously described. 3. Mild fatty replacement of the liver. 4. Interval placement of an inferior vena caval filter. 5. Interval decrease in size and complexity of the left ovarian cystic lesion now having a maximum dimension is 7.7 cm. This remains abnormal for age. 6. Mild nonspecific colitis of the proximal to mid sigmoid colon. 7. No evidence for abscess collection or obstruction. 2. The above report was generated using voice recognition software. It may contain grammatical, syntax or spelling errors. Electronically signed by: Isra Hinojosa M.D. Medications Administered Medications (Trade) Dose Ordered Sig/Taty Route Start Time Stop Time Status Last Admin Dose Admin Ondansetron HCl (Zofran Inj) 4 mg NOW STAT IV 12/29/17 11:04 12/29/17 11:06 DC 12/29/17 11:26 4 MG ED Course The patient was evaluated. IV access was obtained. The patient has a current BUN and creatinine which is normal from earlier today. The patient was given Zofran 4 mg IV push for nausea. CT of the abdomen and pelvis with IV and oral contrast was ordered interpreted by the radiologist as above with nonspecific colitis of the sigmoid colon. the patient was informed of the findings. The patient was discharged home in stable condition. Medical Decision The patient returned for a CAT scan to rule out diverticulitis since she had an episode of nausea and diarrhea when she was at [facility] picking up her prescription for her diarrhea. [place] Drug Monitoring Program Search Results: patient reviewed within database Medication Reconcilliation Current Medication List: was personally reviewed by me Blood Pressure Screening Patient's blood pressure: Normal blood pressure Impression Primary Impression: Nonspecific colitis Departure Information Dispostion Home / Self-Care Condition GOOD Referrals No Doctor, Assigned (PCP) Forms HOME CARE DOCUMENTATION FORM, IMPORTANT VISIT INFORMATION, WORK / SCHOOL INSTRUCTIONS Patient Instructions My [facility] Additional Instructions Follow the discharge instructions that you received earlier today.
[2017-12-29 14:27] VITALS: BP 125/59; PULSE 75; O2SAT 96
== END 2017-12-29 14:29 | disposition home or self-care (01) ==
LOC: C.EDB 10:54 → C.EDC 14:29
DX: K52.9 Noninfective gastroenteritis and colitis, unspecified (principal); I10 Essential (primary) hypertension; Z79.01 Long term (current) use of anticoagulants

== ENCOUNTER 2018-01-04 14:52 | Inpatient (IN) | payer OTHER ==
[~2018-01-04] VITALS: Ht 152.4 cm; Wt 60.0 kg
[2018-01-04] MEDS ORDERED: ACETAMINOPHEN 500 MG TAB PO STA (15:08)
[2018-01-04] MEDS ORDERED: SODIUM CHLORIDE 0.9% 1000ML 500 ML IV ONE (15:08)
[2018-01-04] MEDS ORDERED: PYRI50TA77 PO (15:35)
--- NOTE | 2018-01-04 15:39 | EMERGENCY ROOM VISIT NOTE ---
History Report prepared by Rianna: Desean Allison Under the Supervision of: Dr. Valdez Heaton M.D. First contact with patient: 14:59 Chief Complaint: FEVER Stated Complaint: HEADACHE,ACHEY MUSCLES,TEMP,CHILLS History of Present Illness The patient is a 67 year old female who presents to the Emergency Room with complaints of a constant fever beginning 5 days ago. The patient states she is currently being treated for ovarian cancer. She reports she last received chemotherapy on the . The patient notes it was her first dose of her treatment, and she has not received radiation. She states she was evaluated on the for follow-up blood work for a DVT. She notes her INR was over 10, so she was switched from the Coumadin and Lovenox to Elequis. The patient states she developed diarrhea after she started Eliquis. She reports she was then evaluated in the ED and told she had nonspecific colitis and needed to follow up with GI. The patient notes she did not receive an antibiotic. She states she called the cancer clinic five days ago and she was placed on different medication for her diarrhea. The patient reports her diarrhea resolved. She notes for the past 5 days she has been experiencing a low grade fever. The patient states it was around 99 for two days and then andres to over 100. She reports she woke up today with a headache and chills. The patient notes she was lethargic and out of it throughout the day today. She states she also feels congested in the nose and throat. The patient reports her temperature was 100.8 45 minutes ago. She notes she has occasional burning with urination. The patient denies abdominal pain, cough, changes is urinary frequency, rash, being around sick people, taking Tylenol, getting a flu shot this season, and being around people with the flu. Source of History: patient Onset: 5 days ago Symptom Intensity: 100.8 Quality: other (fever) Timing: constant Associated Symptoms: No cough, No abdominal pain, No rash Note: Associated symptoms: lethargic, feeling out of it, congestion, occasional burning with urination Denies: changes in urinary frequency Review of Systems See HPI for pertinent positives & negatives. A total of 10 systems reviewed and were otherwise negative. Past Medical & Surgical Medical Problems: (1) Hypertension Nos (2) Pneumonia, Organism Nos (3) Supratherapeutic INR Surgical Problems: (1) H/O oophorectomy Family History Hypertension Pneumonia Stroke Social History Smoking Status: Never Smoker Alcohol Use: none Drug Use: none Marital Status: single Housing Status: lives alone Occupation Status: employed Current/Historical Medications Scheduled Amlodipine (Norvasc), 5 MG PO HS Apixaban (Eliquis), 5 MG PO BID Atenolol (Tenormin), 25 MG PO HS Calcium-Magnesium W/ Vitamin D (Citracal Calcium+D Slow R), 1 TAB PO QAM Cholecalciferol (Vitamin D3), 4,000 UNITS PO QAM Misc Natural Products (Osteo Bi-Flex Triple Stre), 1 TAB PO QAM Mometasone Furoate (Nasal) (Mometasone Furoate), 2 SPRAYS VICENTA DAILY Multiple Vitamin (Stress Formula), 1 TAB PO DAILY Probiotic Product (Probiotic), 1 TAB PO DAILY Pyridoxine (Vitamin B6), 100 MG PO QAM Saline ([place]), 1 SPRY VICENTA Q8 [Nausea med], 1 TAB PO prn ud [chemo], 1 DOSE IV DIRECTED Scheduled PRN Acetaminophen (Tylenol), 1 TAB PO Q8 PRN for Pain Ondansetron Odt (Zofran Odt), 4 MG SL Q6H PRN for Nausea Ondasetron Odt (Zofran Odt), 4 MG PO Q8 PRN for Nausea or Vomiting Allergies Coded Allergies: Penicillins (Verified Allergy, Mild, OTHER, 12/29/17) Sulfa Antibiotics (Verified Allergy, Mild, UNKNOWN, 12/29/17) Ciprofloxacin (Verified Allergy, Unknown, Unknown, 12/29/17) Erythromycin (Verified Allergy, Unknown, GI UPSET, 12/29/17) Moxifloxacin (Verified Allergy, Unknown, itching, 12/29/17) Physical Exam Vital Signs Date Time Temp Pulse Resp B/P (MAP) Pulse Ox O2 Delivery O2 Flow Rate FiO2 01/04/18 15:38 95 Room Air 01/04/18 14:54 37.7 92 20 176/71 95 Room Air Physical Exam GENERAL: Patient is in no acute distress. HEENT: No acute trauma, normocephalic atraumatic, mucous membranes moist, no nasal congestion, no scleral icterus. NECK: No stridor, no adenopathy, no meningismus, trachea is midline. LUNGS: Clear to auscultation bilaterally, no wheeze, no rhonchi, breath sounds equal. HEART: Without murmurs gallops or rubs, regular rate and rhythm. ABDOMEN: Soft, nontender, bowel sounds positive, no hernias, no peritonitis. EXTREMITIES: No cyanosis or edema, full range of motion of all the joints without pain or difficulty, no signs for acute trauma. NEUROLOGIC: Oriented x 3, no acute motor or sensory deficits, no focal weakness. SKIN: No rash, no jaundice, no diaphoresis. Medical Decision & Procedures ER Provider Diagnostic Interpretation: X-ray results as stated below per interpretation by me and the radiologist: CHEST ONE VIEW PORTABLE CLINICAL HISTORY: Sepsis sepsis COMPARISON STUDY: 11/04/2017 FINDINGS: The bones soft tissues and hemidiaphragms are normal. The cardiomediastinal silhouette is normal. The lungs are clear. The pulmonary vasculature is normal. IMPRESSION: Negative chest. The above report was generated using voice recognition software. It may contain grammatical, syntax or spelling errors. Electronically signed by: Isra Hinojosa M.D. 01/04/2018 3:36 PM Dictated Date/Time: 01/04/2018 3:36 PM Laboratory Results 01/04/18 15:30 Red Blood Count 4.09, Mean Corpuscular Volume 89.0, Mean Corpuscular Hemoglobin 32.0, Mean Corpuscular Hemoglobin Concent 36.0, Mean Platelet Volume 8.9, Neutrophils (%) (Auto) 19.4, Lymphocytes (%) (Auto) 53.8, Monocytes (%) (Auto) 22.3, Eosinophils (%) (Auto) 2.5, Basophils (%) (Auto) 1.5, Neutrophils # (Auto ) 0.38, Lymphocytes # (Auto) 1.06, Monocytes # (Auto) 0.44, Eosinophils # (Auto ) 0.05, Basophils # (Auto) 0.03 01/04/18 15:30 Test 01/04/18 15:30 01/04/18 15:41 01/04/18 15:48 White Blood Count 1.97 K/uL (4.8-10.8) Red Blood Count 4.09 M/uL (4.2-5.4) Hemoglobin 13.1 g/dL (12.0-16.0) Hematocrit 36.4 % (37-47) Mean Corpuscular Volume 89.0 fL (80-100) Mean Corpuscular Hemoglobin 32.0 pg (25-34) Mean Corpuscular Hemoglobin Concent 36.0 g/dl (32-36) Platelet Count 209 K/uL (130-400) Mean Platelet Volume 8.9 fL (7.4-10.4) Neutrophils (%) (Auto) 19.4 % Lymphocytes (%) (Auto) 53.8 % Monocytes (%) (Auto) 22.3 % Eosinophils (%) (Auto) 2.5 % Basophils (%) (Auto) 1.5 % Neutrophils # (Auto) 0.38 K/uL (1.4-6.5) Lymphocytes # (Auto) 1.06 K/uL (1.2-3.4) Monocytes # (Auto) 0.44 K/uL (0.11-0.59) Eosinophils # (Auto) 0.05 K/uL (0-0.5) Basophils # (Auto) 0.03 K/uL (0-0.2) RDW Standard Deviation 40.9 fL (36.4-46.3) RDW Coefficient of Variation 12.6 % (11.5-14.5) Immature Granulocyte % (Auto) 0.5 % Immature Granulocyte # (Auto) 0.01 K/uL (0.00-0.02) Toxic Granulation 2+ Dohle Bodies 1+ Prothrombin Time 11.0 SECONDS (9.0-12.0) Prothromb Time International Ratio 1.0 (0.9-1.1) Activated Partial Thromboplast Time 28.2 SECONDS (21.0-31.0) Partial Thromboplastin Ratio 1.1 Anion Gap 7.0 mmol/L (3-11) Est Creatinine Clear Calc Drug Dose 62.3 ml/min Estimated GFR () 100.4 Estimated GFR (Non- 86.7 BUN/Creatinine Ratio 17.6 (10-20) Calcium Level 9.1 mg/dl (8.5-10.1) Total Bilirubin 0.3 mg/dl (0.2-1) Aspartate Amino Transf (AST/SGOT) 21 U/L (15-37) Alanine Aminotransferase (ALT/SGPT) 35 U/L (12-78) Alkaline Phosphatase 73 U/L (45-117) Total Protein 8.2 gm/dl (6.4-8.2) Albumin 3.7 gm/dl (3.4-5.0) Globulin 4.5 gm/dl (2.5-4.0) Albumin/Globulin Ratio 0.8 (0.9-2) Bedside Lactic Acid Venous 0.98 mmol/L (0.90-1.70) Urine Color DK YELLOW Urine Appearance CLEAR (CLEAR) Urine pH 5.0 (4.5-7.5) Urine Specific [place] 1.024 (1.000-1.030) Urine Protein NEG (NEG) Urine Glucose (UA) NEG (NEG) Urine Ketones TRACE (NEG) Urine Occult Blood NEG (NEG) Urine Nitrite NEG (NEG) Urine Bilirubin NEG (NEG) Urine Urobilinogen NEG (NEG) Urine Leukocyte Esterase NEG (NEG) Urine WBC (Auto) 1-5 /hpf (0-5) Urine RBC (Auto) 0-4 /hpf (0-4) Urine Hyaline Casts (Auto) 5-10 /lpf (0-5) Urine Epithelial Cells (Auto) 20-30 /lpf (0-5) Urine Bacteria (Auto) NEG (NEG) Influenza Type A (RT-PCR) Neg for Influ A (NEG) Influenza Type B (RT-PCR) Neg for Influ B (NEG) Laboratory results reviewed by me. Medications Administered Medications (Trade) Dose Ordered Sig/Taty Route Start Time Stop Time Status Last Admin Dose Admin Sodium Chloride 500 ml @ 999 mls/hr Q31M ONCE IV 01/04/18 15:08 01/04/18 15:38 DC 01/04/18 15:58 999 MLS/HR Cefepime HCl 2000 mg/Dextrose 112.5 ml @ 225 mls/hr NOW ONCE IV 01/04/18 15:15 01/04/18 15:44 DC 01/04/18 16:05 225 MLS/HR Acetaminophen (Tylenol Tab) 1,000 mg NOW STAT PO 01/04/18 15:08 01/04/18 15:14 DC 01/04/18 15:59 1,000 MG Potassium Chloride (Klor-Con M10) 40 meq NOW STAT PO 01/04/18 16:18 01/04/18 16:19 DC 01/04/18 16:43 40 MEQ ED Course 1502: The patient was evaluated in room C05. A complete history and physical exam was performed. 1508: Ordered Acetaminophen 1000mg PO, Sodium Chloride 500 ml @ 999 mls/hr IV 1515: Ordered Cefepime HCl 2000mg/Dextrose 112.5 ml @ 225 mls/hr IV 1618: Ordered Potassium Chloride 40 meq PO 1642: Upon reexamination the patient is resting. I discussed results and treatment plan with the patient. The patient verbalizes agreement and understanding. The patient will be evaluated for further management. I discussed the patient's case with [facility] Hospitalist. The patient will be evaluated for further management and care. Medical Decision The patient is a 67 year old female who presents to the ED with complaints of a fever. Differential diagnoses considered include sepsis or bacteremia, pneumonia, UTI, diverticulitis or colitis, dehydration, neutropenia. The patient is neutropenic. No anemia, platelet count was acceptable. Potassium was somewhat low. No kidney failure or hepatitis. Lactic acid level was not elevated making sepsis less likely. Chest film does not show pneumonia , CHF or mediastinal widening. Urinalysis does not show infection. Blood culture is pending. Influenza testing was negative. On exam, the patient did not have evidence for cellulitis, there was no abdominal pain. The patient was not toxic. She had a low-grade temperature. The patient received IV Cefepime as antibiotic coverage. She was given oral Tylenol. She received IV saline for hydration. She was given oral potassium. The patient is doing well. Given the fever, given the neutropenia, given the chemotherapy, I did think a hospital stay was warranted. I did speak with case management. The on-call hospitalist was consulted. The source for the fever at this point is unclear. Medication Reconcilliation Current Medication List: was personally reviewed by me Blood Pressure Screening Patient's blood pressure: Elevated blood pressure Monitored by the hospitalist. Consults Time Called: 1640 Consulting Physician: [facility] Hospitalist I discussed the patient's case with [facility] Hospitalist. The patient will be evaluated for further management and care. Impression Primary Impression: Neutropenic fever Additional Impressions: Status post chemotherapy Ovarian cancer Hypokalemia Scribe Attestation The scribe's documentation has been prepared under my direction and personally reviewed by me in its entirety. I confirm that the note above accurately reflects all work, treatment, procedures, and medical decision making performed by me. Departure Information Dispostion Being Evaluated By Hospitalist Referrals No Doctor, Assigned (PCP) Patient Instructions My [facility] Problem Qualifiers
[2018-01-04] MEDS ORDERED: ONDA4TAB10 PO (15:43)
[2018-01-04] MEDS ORDERED: [UNRECOGNIZED DRUG - OTHER] PO (15:43)
[2018-01-04] MEDS: CEFEPIME IV 2,000 MG in DEXTROSE 5% 100ML 100 ML IV ONE ×2 (15:59→16:05)
[2018-01-04 16:08] LABS: PTT PATIENT 28.2 SECONDS (21.0-31.0)
[2018-01-04 16:14] LABS: ALBUMIN 3.7 gm/dl (3.4-5.0); CALCIUM 9.1 mg/dl (8.5-10.1); CREATININE 0.72 mg/dl (0.60-1.20); POTASSIUM 2.7 mmol/L (3.5-5.1)
[2018-01-04 16:17] LABS: TOTAL PROTEIN 8.2 gm/dl (6.4-8.2)
[2018-01-04] MEDS ORDERED: POTASSIUM CHLORIDE 10 MEQ TABCR PO STA (16:18)
[2018-01-04 16:29] LABS: HEMATOCRIT 36.4 % (37-47); HEMOGLOBIN 13.1 g/dL (12.0-16.0); MEAN PLATELET VOLUME 8.9 fL (7.4-10.4); PLATELET COUNT 209 K/uL (130-400); RED CELL DISTRIBUTION WIDTH CV 12.6 % (11.5-14.5); RED CELL DISTRIBUTION WIDTH SD 40.9 fL (36.4-46.3); WHITE BLOOD COUNT 1.97 K/uL (4.8-10.8)
[2018-01-04 16:32] LABS: BASO % 1.5 %; BASO ABS # 0.03 K/uL (0-0.2); EOS % 2.5 %; EOS ABS # 0.05 K/uL (0-0.5); IG# 0.01 K/uL (0.00-0.02); LYMPH % 53.8 %; LYMPH ABS # 1.06 K/uL (1.2-3.4); MONO % 22.3 %; MONO ABS # 0.44 K/uL (0.11-0.59); NEUT % 19.4 %; NEUT ABS # 0.38 K/uL (1.4-6.5)
[2018-01-04 16:50] LABS: INFLUENZA A PCR Neg for Influ A (NEG); INFLUENZA B PCR Neg for Influ B (NEG)
[2018-01-04] MEDS ORDERED: MAGNESIUM SULFATE 1GM / D5W 100 ML IV STA (20:46)
[2018-01-04] MEDS ORDERED: ALUMINUM/MAGNESIUM/SIMETH (MAALOX MAX) 30 ML UDC PO PRN (21:00)
[2018-01-04] MEDS ORDERED: MAGNESIUM HYDROXIDE SUSP 30 ML UDC PO PRN (21:00)
[2018-01-04] MEDS ORDERED: POLYETHYLENE (MIRALAX) 17 GM PACK PO PRN (21:00)
[2018-01-04] MEDS ORDERED: ONDANSETRON INJ 2 MG/ML 2 ML VIAL IV PRN (21:00)
[2018-01-04] MEDS ORDERED: NITROGLYCERIN 0.4 MG SL PER TAB CHARGE SL PRN (21:00)
--- NOTE | 2018-01-04 21:10 | History and Physical ---
History & Physical Date & Time of Service: Jan 04, 2018 at 21:05 Chief Complaint: Headache,Achey Muscles,Temp,Chills Primary Care Physician: No Doctor, Assigned History of Present Illness Source: patient 67 yo F with pMHx HTN and ovarian cancer with DVT (10/27) on apixaban, s/p total hysterectomy (11/24) and started on chemotherapy session #1 (12/24/17) presents to ER today with 5 day history of low grade fevers. Today was worse because the fever was 100.8 at home and associated with chills, achiness, fatigue, sinus congestion and some dysuria. Patient did not use any Tylenol or NSAID for fear of masking her symptoms. She states she has been getting headaches ever since she started chemotherapy, but does not have one currently. She otherwise denies CP, palpitations, dyspnea, abdominal pain, lower extremity swelling or rashes. She is tolerating diet without nausea or vomiting, and voiding and stooling appropriately. She had diarrhea previously, but that is resolved currently. Of note, the patient does not have any lines in place for chemotherapy. In the ER, patient found to be neutropenic with a low grade fever, with potassium 2.7. She received NSS, Tylenol, KCl supplementation, and a dose of cefepime. ROS is unremarkable except as noted above. Past Medical/Surgical History Medical Problems: (1) Ascites (2) Chest pain (3) Chest pain (4) CHEST PAIN NOS (5) Deep vein thrombosis (DVT) of left lower extremity (6) Diarrhea (7) Diarrhea (8) Fall (9) Fracture of left tibial plateau (10) Heart palpitations (11) Hematuria (12) Hyperglycemia (13) Hypertension Nos (14) Left elbow contusion (15) Left elbow contusion (16) Left rib fracture (17) Nonspecific colitis (18) Palpitation (19) Pelvic mass in female (20) Pelvic pain (21) Pneumonia, Organism Nos (22) Superficial thrombosis of left lower extremity (23) Supratherapeutic INR (24) Urinary tract infection (25) UTI (urinary tract infection) Surgical Problems: (1) H/O oophorectomy Family History Hypertension Pneumonia Stroke No cancer history in family Social History Smoking Status: Never Smoker Drug Use: none Marital Status: single Housing status: lives with family Occupational Status: employed Immunizations History of Influenza Vaccine: Unknown History of Tetanus Vaccine?: Unknown History of Pneumococcal: Unknown History of Hepatitis B Vaccine: No Allergies Coded Allergies: Penicillins (Verified Allergy, Mild, OTHER, 12/29/17) Sulfa Antibiotics (Verified Allergy, Mild, UNKNOWN, 12/29/17) Ciprofloxacin (Verified Allergy, Unknown, Unknown, 12/29/17) Erythromycin (Verified Allergy, Unknown, GI UPSET, 12/29/17) Moxifloxacin (Verified Allergy, Unknown, itching, 12/29/17) Home Medications Scheduled Amlodipine (Norvasc), 5 MG PO HS Apixaban (Eliquis), 5 MG PO BID Atenolol (Tenormin), 25 MG PO HS Calcium-Magnesium W/ Vitamin D (Citracal Calcium+D Slow R), 1 TAB PO QAM Cholecalciferol (Vitamin D3), 4,000 UNITS PO QAM Misc Natural Products (Osteo Bi-Flex Triple Stre), 1 TAB PO QAM Mometasone Furoate (Nasal) (Mometasone Furoate), 2 SPRAYS VICENTA DAILY Multiple Vitamin (Stress Formula), 1 TAB PO DAILY Probiotic Product (Probiotic), 1 TAB PO DAILY Pyridoxine (Vitamin B6), 100 MG PO QAM Saline ([place]), 1 SPRY VICENTA Q8 [Nausea med], 1 TAB PO prn ud [chemo], 1 DOSE IV DIRECTED Scheduled PRN Acetaminophen (Tylenol), 1 TAB PO Q8 PRN for Pain Ondansetron Odt (Zofran Odt), 4 MG SL Q6H PRN for Nausea Ondasetron Odt (Zofran Odt), 4 MG PO Q8 PRN for Nausea or Vomiting Physical Exam Vital Signs Date Time Temp Pulse Resp B/P (MAP) Pulse Ox O2 Delivery O2 Flow Rate FiO2 01/04/18 20:51 80 16 127/61 98 Room Air 01/04/18 19:08 37.5 67 16 136/57 98 Room Air 01/04/18 17:31 76 16 131/61 98 Room Air 01/04/18 15:38 95 Room Air 01/04/18 14:54 37.7 92 20 176/71 95 Room Air General Appearance: WD/WN, no apparent distress Head: normocephalic, atraumatic Eyes: sclerae normal ENT: hearing grossly normal, pharynx normal Neck: supple Respiratory/Chest: lungs clear, normal breath sounds, no respiratory distress, no accessory muscle use Cardiovascular: regular rate, rhythm, no murmur, normal peripheral pulses Abdomen/GI: normal bowel sounds, non tender, soft Back: no CVA tenderness Extremities/Musculoskelatal: no calf tenderness, no pedal edema Neurologic/Psych: alert, normal mood/affect, oriented x 3 Skin: normal color, warm/dry, no rash, + pertinent finding (well healed abdominal scar from recent hysterectomy) Diagnostics Laboratory Results Results Past 24 Hours Test 01/04/18 15:30 01/04/18 15:41 01/04/18 15:48 Range/Units White Blood Count 1.97 4.8-10.8 K/uL Red Blood Count 4.09 4.2-5.4 M/uL Hemoglobin 13.1 12.0-16.0 g/dL Hematocrit 36.4 37-47 % Mean Corpuscular Volume 89.0 80-100 fL Mean Corpuscular Hemoglobin 32.0 25-34 pg Mean Corpuscular Hemoglobin Concent 36.0 32-36 g/dl Platelet Count 209 130-400 K/uL Mean Platelet Volume 8.9 7.4-10.4 fL Neutrophils (%) (Auto) 19.4 % Lymphocytes (%) (Auto) 53.8 % Monocytes (%) (Auto) 22.3 % Eosinophils (%) (Auto) 2.5 % Basophils (%) (Auto) 1.5 % Neutrophils # (Auto) 0.38 1.4-6.5 K/uL Lymphocytes # (Auto) 1.06 1.2-3.4 K/uL Monocytes # (Auto) 0.44 0.11-0.59 K/uL Eosinophils # (Auto) 0.05 0-0.5 K/uL Basophils # (Auto) 0.03 0-0.2 K/uL RDW Standard Deviation 40.9 36.4-46.3 fL RDW Coefficient of Variation 12.6 11.5-14.5 % Immature Granulocyte % (Auto) 0.5 % Immature Granulocyte # (Auto) 0.01 0.00-0.02 K/uL Toxic Granulation 2+ Dohle Bodies 1+ Prothrombin Time 11.0 9.0-12.0 SECONDS Prothromb Time International Ratio 1.0 0.9-1.1 Activated Partial Thromboplast Time 28.2 21.0-31.0 SECONDS Partial Thromboplastin Ratio 1.1 Sodium Level 137 136-145 mmol/L Potassium Level 2.7 3.5-5.1 mmol/L Chloride Level 104 98-107 mmol/L Carbon Dioxide Level 26 21-32 mmol/L Anion Gap 7.0 3-11 mmol/L Blood Urea Nitrogen 13 7-18 mg/dl Creatinine 0.72 0.60-1.20 mg/dl Est Creatinine Clear Calc Drug Dose 62.3 ml/min Estimated GFR () 100.4 Estimated GFR (Non- 86.7 BUN/Creatinine Ratio 17.6 10-20 Random Glucose 88 70-99 mg/dl Calcium Level 9.1 8.5-10.1 mg/dl Total Bilirubin 0.3 0.2-1 mg/dl Aspartate Amino Transf (AST/SGOT) 21 15-37 U/L Alanine Aminotransferase (ALT/SGPT) 35 12-78 U/L Alkaline Phosphatase 73 45-117 U/L Total Protein 8.2 6.4-8.2 gm/dl Albumin 3.7 3.4-5.0 gm/dl Globulin 4.5 2.5-4.0 gm/dl Albumin/Globulin Ratio 0.8 0.9-2 Bedside Lactic Acid Venous 0.98 0.90-1.70 mmol/L Urine Color DK YELLOW Urine Appearance CLEAR CLEAR Urine pH 5.0 4.5-7.5 Urine Specific [place] 1.024 1.000-1.030 Urine Protein NEG NEG Urine Glucose (UA) NEG NEG Urine Ketones TRACE NEG Urine Occult Blood NEG NEG Urine Nitrite NEG NEG Urine Bilirubin NEG NEG Urine Urobilinogen NEG NEG Urine Leukocyte Esterase NEG NEG Urine WBC (Auto) 1-5 0-5 /hpf Urine RBC (Auto) 0-4 0-4 /hpf Urine Hyaline Casts (Auto) 5-10 0-5 /lpf Urine Epithelial Cells (Auto) 20-30 0-5 /lpf Urine Bacteria (Auto) NEG NEG Influenza Type A (RT-PCR) Neg for Influ A NEG Influenza Type B (RT-PCR) Neg for Influ B NEG Microbiology Results 01/04/18 Blood Culture, Received Pending 01/04/18 Blood Culture, Received Pending Diagnostic Radiology CHEST ONE VIEW PORTABLE CLINICAL HISTORY: Sepsis sepsis COMPARISON STUDY: 11/04/2017 FINDINGS: The bones soft tissues and hemidiaphragms are normal. The cardiomediastinal silhouette is normal. The lungs are clear. The pulmonary vasculature is normal. IMPRESSION: Negative chest. Impression Assessment and Plan 67 yo F with pMHx HTN and ovarian cancer with DVT (10/27) on apixaban, s/p total hysterectomy (11/24) and started on chemotherapy session #1 (12/24/17) presents to ER today with 5 day history of low grade fevers, Tmax 100.8, found to be neutropenic and hypokalemic. Does not have any residential IV lines. Neutropenic fever - Neutropenic precautions - UA negative - Blood cultures pending - Empiric treatment with IV cefepime - Tylenol PRN fever or discomfort - Trend CBC Hypokalemia - K+ 2.7 on admission - Empirically given Mg, Mg 1.8 (low end of normal range) - KCl supplementation 40mEq BID - Trend BMP HTN - Continue home meds atenolol and amlodipine H/O DVT - Continue apixaban VTE ppx - SCDs - Anticoagulated with apixaban FULL CODE Resident Physician Supervision Note: I was present with Dr. Baker during the history and exam. I discussed the case with the resident and agree with the findings and plan as documented in the note. Any exceptions or clarifications are listed here: 67 y/o F - recent Dx of ovarian CA, DVT 10/27 on apixaban, HTN - post hysterectomy 11/24 - commenced chemotherapy session 12/24/17. Presents with 5 days of low grade fevers, muscle aches, fatigue, sinus congestion and some dysuria. Initial labs were notable for hypokalemia with a K of 2.7. OE AAO x 3 S1,2 R CTAB NT, ND No CCE P: Source of infection is nondefinitive - pt provided with broad-spectrum coverage pending culture results. Presentation is not consistent with sepsis and she does not have a line so that we will start with Cefepime alone. She will be assigned to telemetry until her K has normalized We will continue Amlodipine and Atenolol as prescribed Documented By: Darwin Awad Advanced Directives Existing Living Will: Yes Existing Power of Form Tamper Operator: Yes Resuscitation Status Full code VTE Prophylaxis Will order VTE Prophylaxis: Yes Resident Tracking Resident Involvement: Resident Care Provided Care Provided: Adult Hospital Medicine
[2018-01-04 22:05] VITALS: BP 144/78; PULSE 73; TEMP 37.4; O2SAT 97; Ht 152.4 cm; Wt 60.0 kg
[2018-01-04] MEDS: APIXABAN 2.5 MG TAB PO SCH (22:26)
[2018-01-04] MEDS: POTASSIUM CHLORIDE 20 MEQ TABCR PO SCH (22:26)
[2018-01-04] MEDS: AMLODIPINE BESYLATE 5 MG TAB PO SCH (22:27)
[2018-01-04 23:10] VITALS: BP 132/59; PULSE 70; TEMP 37.6; O2SAT 97
[2018-01-04] MEDS: CEFEPIME IV 2,000 MG in SYRINGE 7.5 ML IV SCH (23:14)
[2018-01-05] VITALS (11 sets, daily range): BP systolic 113–132; BP diastolic 53–68; PULSE 58–84; TEMP 36.5–37.8; O2SAT 95–98
[2018-01-05] MEDS: ACETAMINOPHEN 325 MG TAB PO PRN ×2 (03:19→20:19)
[2018-01-05 07:31] LABS: CALCIUM 8.3 mg/dl (8.5-10.1); CREATININE 0.54 mg/dl (0.60-1.20)
[2018-01-05 07:32] LABS: HEMATOCRIT 35.7 % (37-47); HEMOGLOBIN 12.3 g/dL (12.0-16.0); MEAN CELL VOLUME 89.5 fL (80-100); MEAN CORPUSCULAR HEMOGLOBIN 30.8 pg (25-34); MEAN CORPUSCULAR HGB CONC 34.5 g/dl (32-36); MEAN PLATELET VOLUME 8.8 fL (7.4-10.4); PLATELET COUNT 173 K/uL (130-400); RED CELL DISTRIBUTION WIDTH CV 12.7 % (11.5-14.5); RED CELL DISTRIBUTION WIDTH SD 40.7 fL (36.4-46.3); WHITE BLOOD COUNT 1.98 K/uL (4.8-10.8)
[2018-01-05 07:34] LABS: BASO % 1.5 %; BASO ABS # 0.03 K/uL (0-0.2); EOS % 3.5 %; EOS ABS # 0.07 K/uL (0-0.5); IG# 0.01 K/uL (0.00-0.02); LYMPH % 47.5 %; LYMPH ABS # 0.94 K/uL (1.2-3.4); MONO % 24.2 %; MONO ABS # 0.48 K/uL (0.11-0.59); NEUT % 22.8 %; NEUT ABS # 0.45 K/uL (1.4-6.5)
--- NOTE | 2018-01-05 07:50 | Family Medicine Progress Note ---
Progress Note Date of Service Jan 05, 2018. Subjective Pt evaluation today including: conversation w/ patient, conversation w/ family , physical exam, chart review, lab review Voiding: no voiding problems The patient feels well this am. Was concerned over the weekend following chemo, developed a couple days of diarrhea. Recently started to have low grade fevers > 100.4. Feels fine today; no fevers, no dysuria, no cough or SOB. No nausea, vomiting or diarrhea. Despite having diarrhea earlier in the week, today the patient feels constipated. Constitutional: No fever, No chills, No sweats Respiratory: No cough, No sputum, No wheezing, No shortness of breath Cardiovascular: No chest pain, No palpitations Abdomen: No pain, No nausea, No vomiting, No diarrhea Female : No dysuria Medications Current Inpatient Medications Medications (Trade) Dose Ordered Sig/Taty Route Start Time Stop Time Status Last Admin Dose Admin Potassium Chloride (Klor-Con Tab) 40 meq BID PO 01/04/18 21:00 02/03/18 20:59 01/05/18 08:00 40 MEQ Acetaminophen (Tylenol Tab) 650 mg Q4H PRN PO 01/04/18 21:00 02/03/18 20:59 01/05/18 03:19 650 MG Al Hydrox/Mg Hydrox/Simethicone (Maalox Max Susp) 15 ml Q4H PRN PO 01/04/18 21:00 02/03/18 20:59 Magnesium Hydroxide (Milk Of Magnesia Susp) 30 ml Q12H PRN PO 01/04/18 21:00 02/03/18 20:59 Ondansetron HCl (Zofran Inj) 4 mg Q6H PRN IV 01/04/18 21:00 02/03/18 20:59 Nitroglycerin (Nitrostat Tab) 0.4 mg UD PRN SL 01/04/18 21:00 02/03/18 20:59 Polyethylene (Miralax Powder Packet) 17 gm DAILY PRN PO 01/04/18 21:00 02/03/18 20:59 Amlodipine Besylate (Norvasc Tab) 5 mg HS PO 01/04/18 21:00 02/03/18 20:59 01/04/18 22:27 5 MG Atenolol (Tenormin Tab) 25 mg HS PO 01/04/18 21:00 02/03/18 20:59 01/04/18 22:26 25 MG Multivitamins (Multivitamin Tab) 1 tab DAILY PO 01/05/18 09:00 02/04/18 08:59 01/05/18 08:00 1 TAB Pyridoxine HCl (Vitamin B-6 Tab) 100 mg QAM PO 01/05/18 09:00 02/04/18 08:59 01/05/18 08:00 100 MG Apixaban (Eliquis Tab) 5 mg BID PO 01/04/18 21:00 02/03/18 20:59 01/05/18 08:00 5 MG Fluticasone Propionate (Flonase Nasal [place]) 2 sprays DAILY VICENTA 01/05/18 09:00 02/04/18 08:59 01/05/18 08:00 2 SPRAYS Lactobacillus Acidophilus (Floranex Tab) 4 tab DAILY PO 01/05/18 09:00 02/04/18 08:59 01/05/18 08:00 4 TAB Cefepime HCl 2000 mg/Syringe 20 ml @ 5 mls/min Q8H IV 01/05/18 00:00 01/07/18 00:00 01/05/18 08:00 5 MLS/MIN Docusate Sodium (coLACE CAP) 100 mg BID PO 01/05/18 11:30 02/04/18 11:29 Objective Vital Signs Date Time Temp Pulse Resp B/P (MAP) Pulse Ox O2 Delivery O2 Flow Rate FiO2 01/05/18 12:07 97 Room Air 01/05/18 11:52 37.2 77 20 132/68 (89) 98 01/05/18 09:05 97 Room Air 01/05/18 07:56 36.5 64 18 128/64 (85) 98 01/05/18 04:10 97 Room Air 01/05/18 03:05 37.8 72 16 130/56 (80) 97 Room Air 01/05/18 00:10 97 Room Air 01/04/18 23:10 37.6 70 20 132/59 (83) 97 Room Air 01/04/18 22:05 37.4 73 18 144/78 97 Room Air 01/04/18 20:51 80 16 127/61 98 Room Air 01/04/18 19:08 37.5 67 16 136/57 98 Room Air 01/04/18 17:31 76 16 131/61 98 Room Air 01/04/18 15:38 95 Room Air 01/04/18 14:54 37.7 92 20 176/71 95 Room Air Physical Exam General Appearance: WD/WN, no apparent distress Neck: supple, no adenopathy, thyroid normal Respiratory/Chest: chest non-tender, lungs clear, normal breath sounds, no respiratory distress Cardiovascular: regular rate, rhythm, no edema, no gallop, no murmur Abdomen: normal bowel sounds, non tender, + pertinent finding (midline scar, palpable subcutaneous lymph nodes ) Extremities: non-tender, normal inspection Neurologic/Psychiatric: alert, normal mood/affect, oriented x 3 Skin: normal color, warm/dry, no rash Laboratory Results 01/05/18 06:17 Red Blood Count 3.99, Mean Corpuscular Volume 89.5, Mean Corpuscular Hemoglobin 30.8, Mean Corpuscular Hemoglobin Concent 34.5, Mean Platelet Volume 8.8, Neutrophils (%) (Auto) 22.8, Lymphocytes (%) (Auto) 47.5, Monocytes (%) (Auto) 24.2, Eosinophils (%) (Auto) 3.5, Basophils (%) (Auto) 1.5, Neutrophils # (Auto ) 0.45, Lymphocytes # (Auto) 0.94, Monocytes # (Auto) 0.48, Eosinophils # (Auto ) 0.07, Basophils # (Auto) 0.03 01/05/18 06:17 Test 01/04/18 15:30 01/04/18 15:41 01/04/18 15:48 01/05/18 06:17 Dohle Bodies 1+ Prothrombin Time 11.0 SECONDS (9.0-12.0) Prothromb Time International Ratio 1.0 (0.9-1.1) Activated Partial Thromboplast Time 28.2 SECONDS (21.0-31.0) Partial Thromboplastin Ratio 1.1 Total Bilirubin 0.3 mg/dl (0.2-1) Aspartate Amino Transf (AST/SGOT) 21 U/L (15-37) Alanine Aminotransferase (ALT/SGPT) 35 U/L (12-78) Alkaline Phosphatase 73 U/L (45-117) Total Protein 8.2 gm/dl (6.4-8.2) Albumin 3.7 gm/dl (3.4-5.0) Globulin 4.5 gm/dl (2.5-4.0) Albumin/Globulin Ratio 0.8 (0.9-2) Bedside Lactic Acid Venous 0.98 mmol/L (0.90-1.70) Urine Color DK YELLOW Urine Appearance CLEAR (CLEAR) Urine pH 5.0 (4.5-7.5) Urine Specific [place] 1.024 (1.000-1.030) Urine Protein NEG (NEG) Urine Glucose (UA) NEG (NEG) Urine Ketones TRACE (NEG) Urine Occult Blood NEG (NEG) Urine Nitrite NEG (NEG) Urine Bilirubin NEG (NEG) Urine Urobilinogen NEG (NEG) Urine Leukocyte Esterase NEG (NEG) Urine WBC (Auto) 1-5 /hpf (0-5) Urine RBC (Auto) 0-4 /hpf (0-4) Urine Hyaline Casts (Auto) 5-10 /lpf (0-5) Urine Epithelial Cells (Auto) 20-30 /lpf (0-5) Urine Bacteria (Auto) NEG (NEG) Influenza Type A (RT-PCR) Neg for Influ A (NEG) Influenza Type B (RT-PCR) Neg for Influ B (NEG) White Blood Count 1.98 K/uL (4.8-10.8) Red Blood Count 3.99 M/uL (4.2-5.4) Hemoglobin 12.3 g/dL (12.0-16.0) Hematocrit 35.7 % (37-47) Mean Corpuscular Volume 89.5 fL (80-100) Mean Corpuscular Hemoglobin 30.8 pg (25-34) Mean Corpuscular Hemoglobin Concent 34.5 g/dl (32-36) Platelet Count 173 K/uL (130-400) Mean Platelet Volume 8.8 fL (7.4-10.4) Neutrophils (%) (Auto) 22.8 % Lymphocytes (%) (Auto) 47.5 % Monocytes (%) (Auto) 24.2 % Eosinophils (%) (Auto) 3.5 % Basophils (%) (Auto) 1.5 % Neutrophils # (Auto) 0.45 K/uL (1.4-6.5) Lymphocytes # (Auto) 0.94 K/uL (1.2-3.4) Monocytes # (Auto) 0.48 K/uL (0.11-0.59) Eosinophils # (Auto) 0.07 K/uL (0-0.5) Basophils # (Auto) 0.03 K/uL (0-0.2) RDW Standard Deviation 40.7 fL (36.4-46.3) RDW Coefficient of Variation 12.7 % (11.5-14.5) Immature Granulocyte % (Auto) 0.5 % Immature Granulocyte # (Auto) 0.01 K/uL (0.00-0.02) Toxic Granulation 1+ Anion Gap 4.0 mmol/L (3-11) Est Creatinine Clear Calc Drug Dose 82.1 ml/min Estimated GFR () 113.2 Estimated GFR (Non- 97.6 BUN/Creatinine Ratio 13.3 (10-20) Calcium Level 8.3 mg/dl (8.5-10.1) Magnesium Level 2.1 mg/dl (1.8-2.4) Assessment and Plan 67 yo female currently being treated for ovarian cancer comes in with 5 days of low grade fever and neutropenia. Assessment; Patient has mild fevers (tmax 37.8). She is feeling better in comparison to earlier this week when she was having symptoms of fatigue and diarrhea. Patient denies n/v/d/sob/cough or dysuria today. Exam was unremarkable. Patient has a WBC of 1.98, negative lactic acid, flu and UA. CXR was unremarkable for acute processes. Patient came in with a K of 2.7--->today her K is 4.0. Hypokalemia likely 2/2 diarrhea. Plan; Continue IV Cefepime until the blood cultures come back negative. Monitor for fevers and potential infection source. Continue to replete K. Dispo; Dc home if blood cultures come back negative. Neutropenic Fever -IV Cefepime, trend CBC, monitor fevers Hypokalemia -Resolving -Replete, 40 meq q am Other Chronic Conditions; HTN-cont. amlodipine, atenolol DVT--Cont. apixaban Assessment/Plan Resident Physician Supervision Note: I was present with Dr. Azevedo during the history and exam. I discussed the case with the resident and agree with the findings and plan as documented in the note. Any exceptions or clarifications are listed here: Pt still having mild underlying malaise which is improved from admission, but without any focal complaints or fever at present. Blood cultures should return tomorrow morning to focus any further abx therapy. Otherwise, neutropenic precautions and transition to floor when available.
[2018-01-05] MEDS: CEFEPIME IV 2,000 MG in SYRINGE 7.5 ML IV SCH ×3 (08:00→23:15)
[2018-01-05] MEDS: MULTIVITAMIN TAB PO SCH (08:00)
[2018-01-05] MEDS: PYRIDOXINE HCL 50 MG TAB PO SCH (08:00)
[2018-01-05] MEDS: LACTOBACILLUS ACIDOPHILUS (FLORANEX) TAB PO SCH (08:00)
[2018-01-05] MEDS: FLUTICASONE PROPIONATE NA SPR 16 GM BTL NAE SCH (08:00)
[2018-01-05] MEDS: APIXABAN 2.5 MG TAB PO SCH ×2 (08:00→20:20)
[2018-01-05] MEDS: POTASSIUM CHLORIDE 20 MEQ TABCR PO SCH (08:00)
[2018-01-05] MEDS ORDERED: NURSING VERBAL MED ORDER ONE (11:15)
[2018-01-05] MEDS: DOCUSATE SODIUM 100 MG CAP PO SCH ×2 (11:30→20:22)
[2018-01-05] MEDS: AMLODIPINE BESYLATE 5 MG TAB PO SCH (20:21)
[2018-01-05] MEDS ORDERED: NURSING DECISION MEDICATION ORDER SCH (20:30)
[2018-01-05] MEDS ORDERED: SODIUM CHLORIDE 0.65% NA SOLN 45 ML (OCEAN) PRN (20:45)
[2018-01-06 00:10] VITALS: O2SAT 98
[2018-01-06 03:32] VITALS: BP 126/51; PULSE 58; TEMP 37; O2SAT 100
[2018-01-06 04:10] VITALS: O2SAT 100
[2018-01-06 05:54] LABS: HEMATOCRIT 35.9 % (37-47); HEMOGLOBIN 12.3 g/dL (12.0-16.0); MEAN CELL VOLUME 89.5 fL (80-100); MEAN CORPUSCULAR HEMOGLOBIN 30.7 pg (25-34); MEAN CORPUSCULAR HGB CONC 34.3 g/dl (32-36); MEAN PLATELET VOLUME 8.4 fL (7.4-10.4); PLATELET COUNT 155 K/uL (130-400); RED CELL DISTRIBUTION WIDTH CV 12.7 % (11.5-14.5); RED CELL DISTRIBUTION WIDTH SD 41.1 fL (36.4-46.3)
[2018-01-06 06:24] LABS: CALCIUM 8.3 mg/dl (8.5-10.1); CREATININE 0.59 mg/dl (0.60-1.20)
[2018-01-06 07:12] VITALS: BP 132/58; PULSE 71; TEMP 37.2; O2SAT 97
[2018-01-06 08:31] LABS: BASO % 1.3 %; BASO ABS # 0.03 K/uL (0-0.2); EOS % 5.9 %; EOS ABS # 0.14 K/uL (0-0.5); IG# 0.02 K/uL (0.00-0.02); MONO % 19.7 %; MONO ABS # 0.47 K/uL (0.11-0.59); NEUT % 30.3 %; NEUT ABS # 0.72 K/uL (1.4-6.5)
[2018-01-06] MEDS: APIXABAN 2.5 MG TAB PO SCH (08:59)
[2018-01-06] MEDS: MULTIVITAMIN TAB PO SCH (08:59)
[2018-01-06] MEDS: LACTOBACILLUS ACIDOPHILUS (FLORANEX) TAB PO SCH (09:00)
[2018-01-06] MEDS: DOCUSATE SODIUM 100 MG CAP PO SCH (09:00)
[2018-01-06] MEDS: PYRIDOXINE HCL 50 MG TAB PO SCH (09:00)
[2018-01-06] MEDS: CEFEPIME IV 2,000 MG in SYRINGE 7.5 ML IV SCH (09:01)
[2018-01-06] MEDS: FLUTICASONE PROPIONATE NA SPR 16 GM BTL NAE SCH (09:01)
--- NOTE | 2018-01-06 10:54 | Discharge Instructions ---
Discharge Instructions Date of Service Jan 06, 2018. Admission Reason for Admission: Hypokalemia,Neutropenic Fever Discharge Discharge Diagnosis / Problem: Neutropenic fever likely secondary to sinus infection Discharge Goals Goal(s): Decrease discomfort, Improve disease control, Diagnostic testing, Therapeutic intervention Activity Recommendations Activity Limitations: resume your previous activity . Instructions / Follow-Up Instructions / Follow-Up You were seen in the hospital with low grade fevers and sinus symptoms. In hospital, it was noted that your white cell count was low. This is common after chemotherapy, but is likely the reason you were having trouble fighting your infection. On discharge, you have been placed on oral antibiotics, Doxycycline 100mg. 1 tablet is to be taken in the morning and at night (starting tonight) until all the medication is completed, even if you are feeling better. You also had low potassium, which is likely because of your previous diarrhea. Your potassium levels are within normal levels now. You may resume all your other medications as previous. Follow up with your family doctor and anticoagulation clinic have been scheduled for you. Please keep your appointment with oncologist, Dr. Nichols, and he will discuss plans for proceeding with or delaying chemotherapy with you. Thank you for allowing us to participate in your care. Current Hospital Diet Patient's current hospital diet: Regular Diet Discharge Diet Recommended Diet: Regular Diet Pending Studies Studies pending at discharge: yes List of pending studies: Final blood cultures Medical Emergencies . Who to Call and When: Medical Emergencies: If at any time you feel your situation is an emergency, please call 911 immediately. . Non-Emergent Contact Non-Emergency issues call your: Primary Care Provider, Oncologist . . "Provider Documentation" section prepared by Nasreen Baker. . Resident Tracking Resident Involvement: Resident Care Provided Care Provided: Adult Hospital Medicine
[2018-01-06 11:44] VITALS: BP 139/65; PULSE 76; TEMP 36.7; O2SAT 98
[2018-01-06] MEDS ORDERED: FLUC150T PO (13:22)
[2018-01-06] MEDS ORDERED: DOXY100C76 PO (13:22)
--- NOTE | 2018-01-06 13:32 | Discharge Summary ---
Discharge Summary Date of Service Jan 06, 2018. Discharge Summary Admission Date: Jan 04, 2018 at 20:57 Discharge Date: Jan 06, 2018 Discharge Disposition: Home Principal Diagnosis: Neutropenic fever Problems/Secondary Diagnoses: Sinusitis. Hypokalemia. Immunizations: Have You Had Influenza Vaccine: Unknown History of Tetanus Vaccine?: Unknown History of Pneumococcal: Unknown History of Hepatitis B Vaccine: No Medication Reconciliation New Medications: Doxycycline Monohydrate (Monodox) 100 Mg Cap 100 MG PO BID, #11 CAP Fluconazole (Diflucan) 150 Mg Tab 150 MG PO UD, #2 TAB Take 1 tab if symptoms of yeast infection. Take second if no resolution in 72 hours Continued Medications: Acetaminophen (Tylenol) 500 Mg Tab 1 TAB PO Q8 PRN for Pain, TAB Amlodipine (Norvasc) 5 Mg Tab 5 MG PO HS, TAB Apixaban (Eliquis) 5 Mg Tab 5 MG PO BID, TAB Atenolol (Tenormin) 25 Mg Tab 25 MG PO HS, TAB Calcium-Magnesium W/ Vitamin D (Citracal Calcium+D Slow R) 1 Tab Tab 1 TAB PO QAM Cholecalciferol (Vitamin D3) 2,000 Unit Cap 4000 UNITS PO QAM, CAP Misc Natural Products (Osteo Bi-Flex Triple Stre) 1 Tab Tab 1 TAB PO QAM Mometasone Furoate (Nasal) (Mometasone Furoate) 50 Mcg/Act Spr 2 SPRAYS VICENTA DAILY Multiple Vitamin (Stress Formula) 1 Tab Tab 1 TAB PO DAILY Ondansetron Odt (Zofran Odt) 8 Mg Soltab 4 MG SL Q6H PRN for Nausea, TAB Ondasetron Odt (Zofran Odt) 4 Mg Tab 4 MG PO Q8 PRN for Nausea or Vomiting Probiotic Product (Probiotic) 1 Tab Tab 1 TAB PO DAILY optiflora Pyridoxine (Vitamin B6) 100 Mg Tab 100 MG PO QAM, TAB Saline ([place]) 0.65 % Spr 1 SPRY VICENTA Q8, ML [chemo] () 1 DOSE IV DIRECTED receives treatment q21 days [Nausea med] () 1 TAB PO prn ud PT STATES IT STARTS WITH PH Discharge Exam Patient feeling well since admission. Has intermittent night sweats, although she notes she has only had intermittent low grade temps. She otherwise denies headaches, CP, palpitations, dyspnea, abdominal pain, lower extremity swelling or rashes. She is tolerating diet without nausea or vomiting, ambulating without exacerbating symptoms, and voiding and stooling appropriately. ROS is unremarkable except as noted above. Physical Exam General Appearance: WD/WN, no apparent distress Neck: supple, no adenopathy, thyroid normal Respiratory/Chest: chest non-tender, lungs clear, normal breath sounds, no respiratory distress Cardiovascular: regular rate, rhythm, no edema, no gallop, no murmur Abdomen: normal bowel sounds, non tender, + pertinent finding (well healed midline scar, palpable subcutaneous lymph nodes) Extremities: non-tender, normal inspection Neurologic/Psychiatric: alert, normal mood/affect, oriented x 3 Skin: normal color, warm/dry, no rash Hospital Course 67 yo F with pMHx HTN and ovarian cancer with DVT (10/27) on apixaban, s/p total hysterectomy (11/24) and started on chemotherapy session #1 (12/24/17) presents to ER today with 5 day history of low grade fevers, Tmax 100.8, found to be neutropenic and hypokalemic. Does not have any terminal operations manager IV lines. Neutropenic fever - Neutropenic precautions - CXR negative. UA negative. Blood cultures negative - Empiric treatment with IV cefepime. - Improving WBC during admission, although still neutropenic - Transitioned to PO doxycycline 100mg BID x 10 days for sinusitis. - Tylenol PRN fever or discomfort - Follow up with PCP to re-evaluate for ongoing improvement, check CBC for neutrophil counts - Diflucan ordered incase patient has symptoms of yeast infection, as per patient's request Hypokalemia - K+ 2.7 on admission, Mg 1.8 (low end of normal range). - Likely secondary to previous diarrhea - KCl supplementation 40mEq BID x 2 days, K+ normalized at time of discharge - Follow up with PCP to re-evaluate for ongoing improvement, check BMP Ovarian cancer, s/p total hysterectomy, s/p chemotherapy #1 - Follow up with oncologist Dr. Nichols as scheduled to discuss ongoing plans for chemotherapy. HTN - Continue home meds atenolol and amlodipine H/O DVT - Continue apixaban - Follow up in anticoagulation clinic scheduled, for previously missed appointment VTE ppx - SCDs - Anticoagulated with apixaban FULL CODE Resident Physician Supervision Note: I interviewed and examined the patient. Discussed with Dr. Baker and agree with findings and plan as documented in the note. Any exceptions or clarifications are listed here: None Documented By: Jose L Schmidt feeling better just congested no longer febrile wbc trending up vitals noted nad breathing unlabored no pallor or icterus neutropenic fever - likely URI/sinusitis in the setting of chemo -stable for home, discussed risks/benefits -abx as above -close PCP and oncology f/u Total Time Spent: Greater than 30 minutes This includes examination of the patient, discharge planning, medication reconciliation, and communication with other providers. Discharge Instructions Please refer to the electronic Patient Visit Report (Discharge Instructions) for additional information. Additional Copies To Bibiana Hightower Resident Tracking Resident Involvement: Resident Care Provided Care Provided: Adult Hospital Medicine
[2018-01-06 14:10] VITALS: BP 139/65; PULSE 76; TEMP 36.7; O2SAT 98
== END 2018-01-06 14:45 | disposition home or self-care (01) | DRG 809 ==
LOC: C.EDB 14:54 → C.2E 20:57 → ENRESERV 21:11
PROVIDERS: ADMIT Internal Medicine; ATTEND Family Medicine
DX: D70.9 Neutropenia, unspecified (principal); C56.9 Malignant neoplasm of unspecified ovary; I10 Essential (primary) hypertension; J32.9 Chronic sinusitis, unspecified; E87.6 Hypokalemia; Z88.2 Allergy status to sulfonamides; Z90.710 Acquired absence of both cervix and uterus; Z87.440 Personal history of urinary (tract) infections; Z86.718 Personal history of other venous thrombosis and embolism; Z92.21 Personal history of antineoplastic chemotherapy; Z87.01 Personal history of pneumonia (recurrent); Z88.1 Allergy status to other antibiotic agents; Z88.0 Allergy status to penicillin; Z82.49 Family history of ischemic heart disease and other diseases of the circulatory system; Z82.3 Family history of stroke

== ENCOUNTER → 2018-01-08 | Outpatient (CLI) | payer OTHER ==
[~2018-01-08] MED LIST changes: -CHOLPOW PO; +DOXY100C76 PO; +FLUC150T PO; +ONDA4TAB10 PO; -SALI0.6510; +[UNRECOGNIZED DRUG - OTHER] PO
[2018-01-08 13:09] LABS: BASO % 0.5 %; BASO ABS # 0.02 K/uL (0-0.2); EOS % 1.6 %; EOS ABS # 0.06 K/uL (0-0.5); HEMATOCRIT 36.7 % (37-47); HEMOGLOBIN 12.4 g/dL (12.0-16.0); IG# 0.03 K/uL (0.00-0.02); LYMPH % 27.2 %; LYMPH ABS # 1.01 K/uL (1.2-3.4); MEAN CELL VOLUME 91.1 fL (80-100); MEAN CORPUSCULAR HEMOGLOBIN 30.8 pg (25-34); MEAN CORPUSCULAR HGB CONC 33.8 g/dl (32-36); MONO % 17.5 %; MONO ABS # 0.65 K/uL (0.11-0.59); NEUT % 52.4 %; NEUT ABS # 1.95 K/uL (1.4-6.5); PLATELET COUNT 202 K/uL (130-400); RED CELL DISTRIBUTION WIDTH SD 43.8 fL (36.4-46.3); WHITE BLOOD COUNT 3.72 K/uL (4.8-10.8)
[2018-01-08 13:38] LABS: BLOOD UREA NITROGEN 19 mg/dl (7-18); CALCIUM 9.1 mg/dl (8.5-10.1); CARBON DIOXIDE 30 mmol/L (21-32); CREATININE 0.62 mg/dl (0.60-1.20); GLUCOSE 111 mg/dl (70-99); SODIUM 141 mmol/L (136-145)
== END | disposition home or self-care (01) ==
LOC: C.LABPVFM 17:16
PROVIDERS: ATTEND Nurse Practitioner Family
DX: E83.42 Hypomagnesemia (principal); D70.9 Neutropenia, unspecified; E87.6 Hypokalemia

== ENCOUNTER → 2018-01-13 | Outpatient (CLI) | payer OTHER ==
[~2018-01-13] MED LIST changes: +LORA-741 PO; +NITR1CAP16 PO
== END | disposition home or self-care (01) ==
LOC: C.LABPVFM 14:52
PROVIDERS: ATTEND Nurse Practitioner
DX: R39.9 Unspecified symptoms and signs involving the genitourinary system (principal)

== ENCOUNTER → 2018-04-07 | Outpatient (CLI) | payer OTHER ==
[~2018-04-07] MED LIST changes: -AMLO-110 PO; +AMLO5TAB3 PO; -DOXY100C76 PO; -FLUC150T PO
[2018-04-07 12:55] LABS: BASO % 0.8 %; BASO ABS # 0.03 K/uL (0-0.2); EOS % 1.4 %; EOS ABS # 0.05 K/uL (0-0.5); HEMATOCRIT 37.2 % (37-47); HEMOGLOBIN 12.6 g/dL (12.0-16.0); IG# 0.01 K/uL (0.00-0.02); LYMPH ABS # 1.09 K/uL (1.2-3.4); MEAN CELL VOLUME 97.4 fL (80-100); MEAN CORPUSCULAR HGB CONC 33.9 g/dl (32-36); MEAN PLATELET VOLUME 8.9 fL (7.4-10.4); MONO ABS # 0.58 K/uL (0.11-0.59); NEUT % 51.5 %; NEUT ABS # 1.87 K/uL (1.4-6.5); PLATELET COUNT 294 K/uL (130-400); RED CELL DISTRIBUTION WIDTH CV 16.6 % (11.5-14.5); RED CELL DISTRIBUTION WIDTH SD 58.8 fL (36.4-46.3); WHITE BLOOD COUNT 3.63 K/uL (4.8-10.8)
[2018-04-07 13:34] LABS: ALBUMIN 3.5 gm/dl (3.4-5.0); ALKALINE PHOSPHATASE 71 U/L (45-117); ALT/SGPT 22 U/L (12-78); AST/SGOT 18 U/L (15-37); BLOOD UREA NITROGEN 18 mg/dl (7-18); CARBON DIOXIDE 30 mmol/L (21-32); GLUCOSE 168 mg/dl (70-99); POTASSIUM 3.9 mmol/L (3.5-5.1); SODIUM 139 mmol/L (136-145); TOTAL PROTEIN 7.3 gm/dl (6.4-8.2)
== END | disposition home or self-care (01) ==
LOC: C.LABPVFM 11:04
PROVIDERS: ATTEND Internal Medicine Hematology & Oncology
DX: C56.2 Malignant neoplasm of left ovary (principal)

== ENCOUNTER 2021-11-02 11:25 | Observation (INO) ==
--- NOTE | 2021-10-31 07:55 | Anesthesiology Consultation ---
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 Sebastian Faye Case, DO Height/Weight Height: 5 ft Weight: 63.503 kg Allergies Allergy/AdvReac Type Severity Reaction Status Date / Time erythromycin base Allergy Intermediate GI UPSET Verified 10/30/21 13:23 ciprofloxacin Allergy Mild itching Verified 10/30/21 13:23 moxifloxacin Allergy Mild itching Verified 10/30/21 13:23 Penicillins Allergy Mild Rash Verified 10/30/21 13:23 psyllium Allergy Mild HIVES Verified 10/30/21 13:23 Sulfa (Sulfonamide Allergy Mild Rash Verified 10/30/21 13:23 Antibiotics) doxycycline AdvReac Mild Gastrointestinal Verified 10/30/21 13:23 Upset dicyclomine AdvReac Unknown Unknown Verified 10/30/21 13:23 Medications Home Medications Medication Instructions Recorded Confirmed Last Taken Lactobacillus acidophilus 10 1 cap PO QAM 09/21/18 10/30/21 03/18/20 billion cell capsule (Probiotic) acetaminophen 500 mg tablet 500 - 1,000 mg PO DIRECTED PRN 09/21/18 10/30/21 03/18/20 (Tylenol Extra Strength) 1000 mg pyridoxine (vitamin B6) 100 mg 100 mg PO QAM 09/21/18 10/30/21 03/18/20 tablet (Vitamin B-6) sodium chloride 0.65 % nasal spray 1 spray INTRANASAL Q8 PRN 09/21/18 10/30/21 03/18/20 aerosol ([place] Saline) calcium citrate 200 mg (950 mg) 200 mg PO QAM tab 03/21/19 10/30/21 03/18/20 tablet cholecalciferol (vitamin D3) 50 4,000 units PO QAM tab 03/21/19 10/30/21 03/18/20 mcg (2,000 unit) tablet glucosamine 750 qe-rivlmsviuih-psq 1 tab PO QAM tab 03/21/19 10/30/21 03/18/20 no1 644 mg-C 30 mg-kalani 1 mg tablet (Osteo Bi-Flex Triple Strength) albuterol sulfate 90 mcg/actuation 1 inh INHALATION QID PRN #8.5 g 08/08/20 10/30/21 Unknown aerosol inhaler onhpaqwuwjgw-syyfhcaj-tszgip tablet 1 tab PO QAM 08/24/20 10/30/21 Unknown hyoscyamine sulfate 0.125 mg 0.125 mg PO Q4H PRN #90 tab 04/13/21 10/30/21 Unknown sublingual tablet famotidine 20 mg tablet 20 mg PO BID #180 tab 08/07/21 10/30/21 Unknown azelastine 137 mcg (0.1 %) nasal 2 spray INTRANASAL BID #30 ml 08/08/21 10/30/21 Unknown spray aerosol amlodipine 5 mg tablet 5 mg PO HS #90 tab 08/15/21 10/30/21 Unknown apixaban 5 mg tablet (Eliquis) 2.5 mg PO Q12H #90 tab 09/18/21 10/30/21 Unknown atenolol 25 mg tablet 25 mg PO HS #30 tab 10/24/21 10/30/21 Unknown sodium sul 1.479 gram-potas ch See Rx Instructions PO .COMPLEX 10/26/21 10/30/21 Unknown 0.188 gram-magnes sul 0.225 gram #24 tab tablet (Sutab) pseudoephedrine-guaifenesin ER 60 1 tab PO DAILY PRN 10/30/21 10/30/21 Unknown mg-600 mg tablet,extend release 12hr (Mucinex D) Past Medical History Medical History Bradycardia Chronic anticoagulation eliquis daily d/t hx of dvt 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 Colitis COVID-19 hx of 07/2020--cough, fever, fatigue, had some difficulty breathing (reason for inhaler prn)--no issues now DVT (deep venous thrombosis) hx of 2017--happened prior to being diagnosed with cancer--reason for eliquis Fracture of left tibial plateau Gastritis History of chemotherapy History of endometriosis Hypertension Irritable bowel syndrome with diarrhea Osteoporosis Ovarian cancer Palpitation (07/08/13) per pt reason atenolol Thrombophlebitis Ulnar nerve palsy Past Family History Family History Grandmother (Paternal) Heart disease Mother Anxiety Crohn's disease Hypertension Father Anxiety Hypertension Other Diabetes No family history of adverse response to anesthesia Denies family history of Ovarian cancer Prostate cancer Myocardial infarction Breast cancer Colorectal cancer Past Surgical History Surgical History H/O laparoscopy diagnostic History of carpal tunnel surgery left History of oophorectomy right ovary- 1980 d/t endometriosis History of open reduction and internal fixation (ORIF) procedure left elbow fx repair--hardware in place History of open reduction and internal fixation (ORIF) procedure right wrist fx repair--hardware in place S/P colonoscopy S/P total abdominal hysterectomy 2017- with left salpingo-oopherectomy (clear cell carcinoma) Social History Smoking Status: Never smoker Do You Dip or Chew Tobacco: No Hx Alcohol Use: No Hx Substance Use: No substance use type: does not use Testing Electrocardiogram Date: 06/29/21 Findings: + SB @ (59 bpm) SB with PACs Chest X-Ray Date: 06/29/21 Findings: + NAD
[2021-11-02] MEDS ORDERED: LIDOCAINE 2% 2 ML VIAL/AMP(20MG/ML) INFIL ONE (12:26)
[2021-11-02] MEDS ORDERED: PROPOFOL IV EMULSION 10 MG/ML 20 ML VIAL IV ONE (12:26)
--- NOTE | 2021-11-02 12:29 | History & Physical Report ---
Date of Service November 02, 2021 Assessment & Plan (1) Ovarian cancer: Plan: Proceed with colonoscopy History of Present Illness Chief Complaint: History of ovarian cancer Primary Care Provider: MARY JANE Pineda 70 yo CF who presents for colonoscopy secondary to history of ovarian cancer. Allergies Allergy/AdvReac Type Severity Reaction Status Date / Time erythromycin base Allergy Intermediate GI UPSET Verified 11/02/21 11:47 ciprofloxacin Allergy Mild itching Verified 11/02/21 11:47 moxifloxacin Allergy Mild itching Verified 11/02/21 11:47 Penicillins Allergy Mild Rash Verified 11/02/21 11:47 psyllium Allergy Mild HIVES Verified 11/02/21 11:47 Sulfa (Sulfonamide Allergy Mild Rash Verified 11/02/21 11:47 Antibiotics) doxycycline AdvReac Mild Gastrointestinal Verified 11/02/21 11:47 Upset dicyclomine AdvReac Unknown Unknown Verified 11/02/21 11:47 Home Medications Medication Instructions Recorded Confirmed Type Lactobacillus acidophilus 10 1 cap PO QAM 09/21/18 11/02/21 History billion cell capsule (Probiotic) acetaminophen 500 mg tablet 500 - 1,000 mg PO DIRECTED PRN 09/21/18 11/02/21 History (Tylenol Extra Strength) pyridoxine (vitamin B6) 100 mg 100 mg PO QAM 09/21/18 11/02/21 History tablet (Vitamin B-6) sodium chloride 0.65 % nasal spray 1 spray INTRANASAL Q8 PRN 09/21/18 11/02/21 History aerosol ([place] Saline) calcium citrate 200 mg (950 mg) 200 mg PO QAM tab 03/21/19 11/02/21 History tablet cholecalciferol (vitamin D3) 50 4,000 units PO QAM tab 03/21/19 11/02/21 History mcg (2,000 unit) tablet glucosamine 750 qz-dixenlipdbi-new 1 tab PO QAM tab 03/21/19 11/02/21 History no1 644 mg-C 30 mg-kalani 1 mg tablet (Osteo Bi-Flex Triple Strength) albuterol sulfate 90 mcg/actuation 1 inh INHALATION QID PRN #8.5 g 08/08/20 11/02/21 Rx aerosol inhaler dnepnlwuphvv-qdllospu-jarrue tablet 1 tab PO QAM 08/24/20 11/02/21 History hyoscyamine sulfate 0.125 mg 0.125 mg PO Q4H PRN #90 tab 04/13/21 11/02/21 Rx sublingual tablet famotidine 20 mg tablet 20 mg PO BID #180 tab 08/07/21 11/02/21 Rx azelastine 137 mcg (0.1 %) nasal 2 spray INTRANASAL BID #30 ml 08/08/21 11/02/21 Rx spray aerosol amlodipine 5 mg tablet 5 mg PO HS #90 tab 08/15/21 11/02/21 Rx apixaban 5 mg tablet (Eliquis) 2.5 mg PO Q12H #90 tab 09/18/21 11/02/21 Rx atenolol 25 mg tablet 25 mg PO HS #30 tab 10/24/21 11/02/21 Rx sodium sul 1.479 gram-potas ch See Rx Instructions PO .COMPLEX 10/26/21 11/02/21 Rx 0.188 gram-magnes sul 0.225 gram #24 tab tablet (Sutab) pseudoephedrine-guaifenesin ER 60 1 tab PO DAILY PRN 10/30/21 11/02/21 History mg-600 mg tablet,extend release 12hr (Mucinex D) Past Med/Surg History Medical History Bradycardia Chronic anticoagulation eliquis daily d/t hx of dvt 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 Colitis COVID-19 hx of 07/2020--cough, fever, fatigue, had some difficulty breathing (reason for inhaler prn)--no issues now DVT (deep venous thrombosis) hx of 2017--happened prior to being diagnosed with cancer--reason for eliquis Fracture of left tibial plateau Gastritis History of chemotherapy History of endometriosis Hypertension Irritable bowel syndrome with diarrhea Osteoporosis Ovarian cancer Palpitation (07/08/13) per pt reason atenolol Thrombophlebitis Ulnar nerve palsy Surgical History H/O laparoscopy diagnostic History of carpal tunnel surgery left History of oophorectomy right ovary- 1980 d/t endometriosis History of open reduction and internal fixation (ORIF) procedure left elbow fx repair--hardware in place History of open reduction and internal fixation (ORIF) procedure right wrist fx repair--hardware in place S/P colonoscopy S/P total abdominal hysterectomy 2017- with left salpingo-oopherectomy (clear cell carcinoma) Family History Grandmother (Paternal) Heart disease Mother Anxiety Crohn's disease Hypertension Father Anxiety Hypertension Other Diabetes No family history of adverse response to anesthesia Denies family history of Ovarian cancer Prostate cancer Myocardial infarction Breast cancer Colorectal cancer Social History Smoking Status: Never smoker Second Hand Exposure: No; Do You Dip or Chew Tobacco: No; Tobacco Cessation Education Requested by Patient: No Hx Alcohol Use: No Hx Substance Use: No Preferred Language: Kiswahili Communication Ability: Effective Visual Impairment: No Limitations Hearing Ability: Normal Building Serviceman Required: No Beliefs That Will Affect Care: None marital status: Single Current Living Situation: Alone current occupational status: retired How many Children do You have: 0 Other Information That Helps Us Care for You: No Feels Safe at Home: Yes Safety Concerns: Feels Safe At This Time Childhood Exposure to Second-Hand Smoke: Yes caffeine: No Dental Care, Regularly: Yes Physical Activity Frequency: Daily Seatbelt Use: always Sunscreen Use: Yes (Sometimes) Assistive Devices: Glasses Physical Exam Constitutional: WD/WN, vitals as above Respiratory: normal respiratory effort, lungs clear to auscultation Cardiovascular: RRR, no murmur, no edema Gastrointestinal (Abdomen): normal bowel sounds, soft, nontender, no hepatosplenomegaly Results & Data ([facility]) Vital Signs (Past 12 Hours) Vital Signs Temp Pulse Resp BP Pulse Ox 11/02/21 11:51 36.9 C 78 16 155/77 H 98 Coding Level of Care Code None Diagnoses Ovarian cancer C56.9
[2021-11-02] MEDS ORDERED: SODIUM CHLORIDE 0.9% 1000ML 1,000 ML IV SCH (12:30)
--- NOTE | 2021-11-02 13:33 | GI REPORT ---
Patient Name: Malka Juarez Procedure Date: 11/02/2021 1:06 PM Date of : 1950 Admit Type: Outpatient Age: 70 Gender: Female Attending MD: Artur Cortes DO Procedure: Colonoscopy Providers: Artur Cortes DO Referring MD: Evan Nichols Do Indications: Ovarian cancer Medicines: Monitored Anesthesia Care Complications: No immediate complications. Estimated Blood Loss: Estimated blood loss: none. Procedure: Pre-Anesthesia Assessment: - Prior to the procedure, a History and Physical was performed, and patient medications and allergies were reviewed. The patient's tolerance of previous anesthesia was also reviewed. The risks and benefits of the procedure and the sedation options and risks were discussed with the patient. All questions were answered, and informed consent was obtained. Prior Anticoagulants: The patient has taken Eliquis (apixaban), last dose was 2 days prior to procedure. ASA Grade Assessment: III - A patient with severe systemic disease. After reviewing the risks and benefits, the patient was deemed in satisfactory condition to undergo the procedure. After I obtained informed consent, the scope was passed under direct vision. Throughout the procedure, the patient's blood pressure, pulse, and oxygen saturations were monitored continuously. The Colonoscope was introduced through the anus and advanced to the terminal ileum. The colonoscopy was performed without difficulty. The patient tolerated the procedure well. The quality of the bowel preparation was good. The terminal ileum, ileocecal valve, appendiceal orifice, and rectum were photographed. Findings: The perianal and digital rectal examinations were normal. A 6 mm polyp was found in the sigmoid colon. The polyp was sessile. The polyp was removed with a cold snare. Resection and retrieval were complete. To prevent bleeding after the polypectomy, one hemostatic clip was successfully placed (MR conditional). There was no bleeding at the end of the procedure. Multiple small-mouthed diverticula were found in the sigmoid colon. Non-bleeding internal hemorrhoids were found during retroflexion. The hemorrhoids were small. Impression: - One 6 mm polyp in the sigmoid colon, removed with a cold snare. Resected and retrieved. Clip (MR conditional) was placed. - Diverticulosis in the sigmoid colon. - Non-bleeding internal hemorrhoids. Recommendation: - Resume previous diet. - Continue present medications. - Repeat colonoscopy for surveillance based on pathology results. - Return to primary care physician as previously scheduled. Artur Victor ManuelTonia Cortes, DO 11/02/2021 1:33:32 PM This report has been signed electronically. Note Initiated On: 11/02/2021 1:06 PM Number of Addenda: 0 I attest to the content of the Intraoperative Record and orders documented therein, exceptions below {[id number]}
[2021-11-02] MEDS ORDERED: ALBUTEROL 0.5% NEB SOLN 2.5 MG/0.5 ML VIAL NEB STA (13:43)
[2021-11-02] MEDS ORDERED: ALBUTEROL 0.083% NEBU SOLN 3 ML VIAL ONE (13:53)
--- NOTE | 2021-11-02 14:42 | XRay Report ---
XR chest 1V portable CLINICAL HISTORY: Coarse lung sounds w/wheezing COMPARISON STUDY: Chest radiograph June 29, 2021. FINDINGS: Lung volumes are normal. No pneumothorax or pleural effusion is present. Hiatal hernia is a gain noted. Cardiomediastinal silhouette is stable. There is no evidence for pulmonary edema. Left mi d and lower lung airspace opacity is present. IMPRESSION: Left mid and left basilar airspace opacity suggestive of pneumonia. Radiographic follow- up to ensure resolution is recommended. ACT 112: Negative or not required by law. Electronically signed by: Triston Madrigal M.D. 11/02/2021 2:40 PM
--- NOTE | 2021-11-02 14:46 | Communication Note ---
Date of Service: November 02, 2021 In endo recovery suite pt began coughing and c/o of feeling chest congestion. She was given an albuterol nebulizer treatment without relief. A CXR was obtained which showed consolidation at base of left lung. Radiologic findings were confirmed by Dr. Henderson. I discussed with Dr. Cortes and he will arrange for admission. Given extent of consolidation I don't believe this is a result of aspiration. Rather, I think this was a pre-existing problem. Her friend reported pt was coughing at home this morning. In preop I did not notice her coughing and her lung exam was unremarkable.
[2021-11-02] MEDS ORDERED: ACETAMINOPHEN 325 MG TAB PO PRN (14:54)
--- NOTE | 2021-11-02 15:25 | Anesthesiology Progress Note ---
Date of Service November 02, 2021 Anesthesia Post Procedure Vital Signs Vital Signs: Temp Pulse Resp BP Pulse Ox 11/02/21 15:07 106 H 18 141/81 H 95 11/02/21 14:41 106 H 18 146/89 H 95 11/02/21 14:23 107 H 18 139/83 96 11/02/21 14:11 93 H 93 11/02/21 13:52 106 H 18 100/82 96 11/02/21 13:38 83 16 124/64 89 L 11/02/21 13:23 87 16 146/68 H 91 11/02/21 11:51 36.9 C 78 16 155/77 H 98 Transfer of Care Handoff Completed per policy Notes Mental Status: alert / awake / arousable and participated in evaluation Patient Amnestic to Procedure: Yes Nausea / Vomiting: adequately controlled Pain: adequately controlled Airway Patency, RR, SpO2: see Notes below BP & HR: stable & adequate Hydration State: stable & adequate Anesthetic Complications: no major complications apparent, see Notes below and Pt Satisfied with anesthetic care Notes: Please see my previous note for specifics. Pt is being admitted to the hospitalist service for evaluation and treatment of left lung consolidation.
[2021-11-02] MEDS ORDERED: AZITHROMYCIN 500 MG in DEXTROSE 5% 250 ML IV STA (15:41)
[2021-11-02] MEDS ORDERED: cefTRIAXone SODIUM 2,000 MG in DEXTROSE 5% 50 ML IV STA (15:41)
--- NOTE | 2021-11-02 15:41 | History & Physical Report ---
Date of Service November 02, 2021 Assessment & Plan (1) Community acquired bacterial pneumonia: Plan: Not suspected to have aspirated during procedure but ideally would cover for such with Unasyn however patient has a childhood allergy to penicillin causing a rash and does not wish to try a penicillin at this time. Ceftriaxone 2g IV daily, will defer additional aspiration coverage with metronidazole currently. Azithromycin 500mg IV now then daily for 2 further days Suspect her sore throat is more laryngitis related to aspiration vs. post nasal drip - no stridor to suggest need for steroids at the current time. (2) Hypoxia: Plan: Aim O2 sats > 90% (3) Chronic anticoagulation: Plan: Restart Eliquis tomorrow per Dr Abdul's recommendations (4) Ovarian cancer: Plan: Noted history of such (5) Hypertension: Plan: Continue atenolol Plan: VTE Prophylaxis - resume Eliquis day after procedure per prior Dr Abdul's recommendations Diet - clears pending SLT assessment Disposition - observation status to med/surg History of Present Illness Chief Complaint: Hypoxia, sore throat Primary Care Provider: MARY JANE Pineda Malka Juarez is a 70 year old female here for elective colonoscopy. Post colonoscopy she was noted to be hypoxic and struggling to take deep breaths. There was some stridor initially noted. She was seen after duoneb treatment and reports mild improvement with this. She still has a significantly hoarse voice that was not present prior to the procedure. CXR was concerning for left sided pneumonia. I was contacted by Dr Cortes due to ongoing hypoxia to assess the patient for admission. No aspiration was noted during the procedure. She reports this is on a background of on and off sinus infections since June. She reports chronic sinusitis but it has been significantly worse this year. She was initially treated with a course of dexamethasone in June and more recently had dexamethasone and azithromycin prescribed on October 06. She reports no current sinus pain but ongoing post nasal drip. No fever or chills. She was not feeling short of breath prior to colonoscopy however has been more fatigued this last week. She had a slight dry cough this morning prior to colonoscopy. She reports a penicillin allergy with a rash as a child. Allergies Allergy/AdvReac Type Severity Reaction Status Date / Time erythromycin base Allergy Intermediate GI UPSET Verified 11/02/21 11:47 ciprofloxacin Allergy Mild itching Verified 11/02/21 11:47 moxifloxacin Allergy Mild itching Verified 11/02/21 11:47 Penicillins Allergy Mild Rash Verified 11/02/21 11:47 psyllium Allergy Mild HIVES Verified 11/02/21 11:47 Sulfa (Sulfonamide Allergy Mild Rash Verified 11/02/21 11:47 Antibiotics) doxycycline AdvReac Mild Gastrointestinal Verified 11/02/21 11:47 Upset dicyclomine AdvReac Unknown Unknown Verified 11/02/21 11:47 Home Medications Medication Instructions Recorded Confirmed Type Lactobacillus acidophilus 10 1 cap PO QAM 09/21/18 11/02/21 History billion cell capsule (Probiotic) acetaminophen 500 mg tablet 500 - 1,000 mg PO DIRECTED PRN 09/21/18 11/02/21 History (Tylenol Extra Strength) pyridoxine (vitamin B6) 100 mg 100 mg PO QAM 09/21/18 11/02/21 History tablet (Vitamin B-6) sodium chloride 0.65 % nasal spray 1 spray INTRANASAL Q8 PRN 09/21/18 11/02/21 History aerosol ([place] Saline) calcium citrate 200 mg (950 mg) 200 mg PO QAM tab 03/21/19 11/02/21 History tablet cholecalciferol (vitamin D3) 50 4,000 units PO QAM tab 03/21/19 11/02/21 History mcg (2,000 unit) tablet glucosamine 750 ln-dizvfoibimi-amx 1 tab PO QAM tab 03/21/19 11/02/21 History no1 644 mg-C 30 mg-kalani 1 mg tablet (Osteo Bi-Flex Triple Strength) albuterol sulfate 90 mcg/actuation 1 inh INHALATION QID PRN #8.5 g 08/08/20 11/02/21 Rx aerosol inhaler exnaooqbgoma-aumxfush-fiiram tablet 1 tab PO QAM 08/24/20 11/02/21 History hyoscyamine sulfate 0.125 mg 0.125 mg PO Q4H PRN #90 tab 04/13/21 11/02/21 Rx sublingual tablet famotidine 20 mg tablet 20 mg PO BID #180 tab 08/07/21 11/02/21 Rx azelastine 137 mcg (0.1 %) nasal 2 spray INTRANASAL BID #30 ml 08/08/21 11/02/21 Rx spray aerosol amlodipine 5 mg tablet 5 mg PO HS #90 tab 08/15/21 11/02/21 Rx apixaban 5 mg tablet (Eliquis) 2.5 mg PO Q12H #90 tab 09/18/21 11/02/21 Rx atenolol 25 mg tablet 25 mg PO HS #30 tab 10/24/21 11/02/21 Rx pseudoephedrine-guaifenesin ER 60 1 tab PO DAILY PRN 10/30/21 11/02/21 History mg-600 mg tablet,extend release 12hr (Mucinex D) Past Med/Surg History Medical History Bradycardia Chronic anticoagulation eliquis daily d/t hx of dvt 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 Colitis COVID-19 hx of 07/2020--cough, fever, fatigue, had some difficulty breathing (reason for inhaler prn)--no issues now DVT (deep venous thrombosis) hx of 2017--happened prior to being diagnosed with cancer--reason for eliquis Fracture of left tibial plateau Gastritis History of chemotherapy History of endometriosis Hypertension Irritable bowel syndrome with diarrhea Osteoporosis Ovarian cancer Palpitation (07/08/13) per pt reason atenolol Thrombophlebitis Ulnar nerve palsy Surgical History H/O laparoscopy diagnostic History of carpal tunnel surgery left History of oophorectomy right ovary- 1980 d/t endometriosis History of open reduction and internal fixation (ORIF) procedure left elbow fx repair--hardware in place History of open reduction and internal fixation (ORIF) procedure right wrist fx repair--hardware in place S/P colonoscopy S/P total abdominal hysterectomy 2017- with left salpingo-oopherectomy (clear cell carcinoma) Family History Grandmother (Paternal) Heart disease Mother Anxiety Crohn's disease Hypertension Father Anxiety Hypertension Other Diabetes No family history of adverse response to anesthesia Denies family history of Ovarian cancer Prostate cancer Myocardial infarction Breast cancer Colorectal cancer Social History Smoking Status: Never smoker Second Hand Exposure: No; Do You Dip or Chew Tobacco: No; Tobacco Cessation Education Requested by Patient: No Hx Alcohol Use: No Hx Substance Use: No Preferred Language: Welsh Communication Ability: Effective Visual Impairment: No Limitations Hearing Ability: Normal Heavy Media Operator Required: No Beliefs That Will Affect Care: None marital status: Single Current Living Situation: Alone current occupational status: retired How many Children do You have: 0 Other Information That Helps Us Care for You: No Feels Safe at Home: Yes Safety Concerns: Feels Safe At This Time Childhood Exposure to Second-Hand Smoke: Yes caffeine: No Dental Care, Regularly: Yes Physical Activity Frequency: Daily Seatbelt Use: always Sunscreen Use: Yes (Sometimes) Assistive Devices: Glasses Review of Systems Review of Systems: All systems reviewed & are unremarkable except as noted in HPI & below Physical Exam Constitutional: WD/WN, vitals as above Respiratory: normal respiratory effort; no respiratory distress and no stridor Auscultation: + crackles (Left base to mid zone posteriorly coarse); no rales, no rhonchi and no wheezes Cardiovascular: Rate/Rhythm: regular rate and regular rhythm Heart Sounds: no murmur Extremities: normal capillary refill; no calf tenderness and no pedal edema Gastrointestinal (Abdomen): Inspection/Auscultation: normal bowel sounds Percussion/Palpation: abdomen soft; abdomen nontender, no guarding and abdomen not rigid Musculoskeletal: no cyanosis or clubbing, extremities motor strength 5/5 Skin: no rashes, warm and dry Neurologic: moves all extremities and awake; not confused Psychiatric: A+Ox3, euthymic affect Results & Data Results & Data ([facility]) Vital Signs (Past 12 Hours) Vital Signs Temp Pulse Resp BP Pulse Ox 11/02/21 15:07 106 H 18 141/81 H 95 11/02/21 14:41 106 H 18 146/89 H 95 11/02/21 14:23 107 H 18 139/83 96 11/02/21 14:11 93 H 93 11/02/21 13:52 106 H 18 100/82 96 11/02/21 13:38 83 16 124/64 89 L 11/02/21 13:23 87 16 146/68 H 91 11/02/21 11:51 36.9 C 78 16 155/77 H 98 Diagnostic Findings XR chest 1V portable CLINICAL HISTORY: Coarse lung sounds w/wheezing COMPARISON STUDY: Chest radiograph June 29, 2021. FINDINGS: Lung volumes are normal. No pneumothorax or pleural effusion is pre sent. Hiatal hernia is again noted. Cardiomediastinal silhouette is stable. There is no evidence for pulmonary edema. Left mid and lower lung airspace opacity is present. IMPRESSION: Left mid and left basilar airspace opacity suggestive of pneumonia. Radiographic follow-up to ensure resolution is recommended. Code Status & VTE Plan Code Status Full VTE Prophylaxis Plan VTE Prophylaxis will be ordered: Yes PG Care Time/CCT Total # of Minutes Spent Total Time Spent with Patient: Total time spent is greater than 50% in coordination of care (as documented) at patient's floor/unit and/or counseling patient: Coding Level of Care Code INT OBSERVATION CARE 50M LVL 2 Diagnoses Community acquired bacterial pneumonia J15.9 Hypoxia R09.02 Chronic anticoagulation Z79.01 Ovarian cancer C56.9 Hypertension I10
[2021-11-02] MEDS ORDERED: ACETAMINOPHEN 1,000 MG/100 ML VIAL IV PRN (17:08)
[2021-11-02 17:37] LABS: Basophils # (auto) 0.01 K/uL (0-0.2); Basophils % (auto) 0.1 %; Eosinophils # (auto) 0.02 K/uL (0-0.5); Eosinophils % (auto) 0.3 %; Hematocrit (blood only) 46.9 % (37-47); Hemoglobin 16.7 g/dL (12.0-16.0); Lymphocytes # (auto) 0.39 K/uL (1.2-3.4); Lymphocytes % (auto) 5.5 %; Mean Corpuscular Hemoglobin 33.1 pg (25-34); Mean Corpuscular Volume 93.1 fL (80-100); Monocytes # (auto) 0.52 K/uL (0.11-0.59); Monocytes % (auto) 7.3 %; Neutrophils # (auto) 6.14 K/uL (1.4-6.5); Neutrophils % (auto) 86.8 %; Platelet Count 296 K/uL (130-400); RDW Coefficient of Variation 12.8 % (11.5-14.5); RDW Standard Deviation 43.6 fL (36.4-46.3); Red Blood Count 5.04 M/uL (4.2-5.4); White Blood Count 7.08 K/uL (4.8-10.8)
[2021-11-02 18:14] LABS: BUN Creatinine Ratio 16.7 (10-20); Calcium 8.9 mg/dl (8.5-10.1); Creatinine Clr Calc Pharmacy 65.3 ml/min; Est GFR (African American) 103.7 ml/min; Est GFR (Non-African American) 89.5 ml/min; Potassium 3.3 mmol/L (3.5-5.1)
[2021-11-02] MEDS: ALBUT/IPRATROP 3MG/0.5MG NEB 3 ML VIAL NEB SCH (19:02)
[2021-11-02 19:28] LABS: Mean Corpuscular Hgb Conc 35.6 g/dL (32-36)
[2021-11-02] MEDS: FAMOTIDINE 20 MG TAB PO SCH (21:44)
[2021-11-02] MEDS: ATENOLOL 25 MG TABLET PO SCH (21:45)
[2021-11-02] MEDS: amLODIPine BESYLATE 5 MG TAB PO SCH (21:45)
[2021-11-03 07:00] LABS: Basophils # (auto) 0.02 K/uL (0-0.2); Basophils % (auto) 0.2 %; Eosinophils # (auto) 0.12 K/uL (0-0.5); Eosinophils % (auto) 1.3 %; Hematocrit (blood only) 45.1 % (37-47); Hemoglobin 15.4 g/dL (12.0-16.0); Immature Granulocytes # (auto) 0.01 K/uL (0.00-0.02); Immature Granulocytes % (auto) 0.1 %; Lymphocytes # (auto) 1.09 K/uL (1.2-3.4); Lymphocytes % (auto) 11.7 %; Mean Corpuscular Hemoglobin 32.4 pg (25-34); Mean Corpuscular Hgb Conc 34.1 g/dL (32-36); Mean Corpuscular Volume 94.9 fL (80-100); Monocytes # (auto) 0.72 K/uL (0.11-0.59); Monocytes % (auto) 7.7 %; Neutrophils # (auto) 7.36 K/uL (1.4-6.5); Platelet Count 281 K/uL (130-400); RDW Standard Deviation 45.1 fL (36.4-46.3); Red Blood Count 4.75 M/uL (4.2-5.4); White Blood Count 9.32 K/uL (4.8-10.8)
[2021-11-03] MEDS: ALBUT/IPRATROP 3MG/0.5MG NEB 3 ML VIAL NEB SCH (07:09)
[2021-11-03 07:20] LABS: BUN Creatinine Ratio 14.5 (10-20); Calcium 8.4 mg/dl (8.5-10.1); Creatinine Clr Calc Pharmacy 62.4 ml/min; Est GFR (African American) 102.2 ml/min; Est GFR (Non-African American) 88.2 ml/min; Potassium 3.8 mmol/L (3.5-5.1)
[2021-11-03] MEDS: AZITHROMYCIN 250 MG TAB PO SCH (07:32)
[2021-11-03] MEDS: APIXABAN 2.5 MG TAB PO SCH ×2 (07:32→22:23)
[2021-11-03] MEDS: FAMOTIDINE 20 MG TAB PO SCH ×2 (07:33→22:22)
[2021-11-03] MEDS ORDERED: ALBUT/IPRATROP 3MG/0.5MG NEB 3 ML VIAL NEB PRN (10:11)
--- NOTE | 2021-11-03 16:49 | Hospitalist Progress Note ---
Date of Service November 03, 2021 Assessment & Plan (1) Community acquired bacterial pneumonia: Plan: Not suspected to have aspirated during procedure Covering for community-acquired pneumonia with Ceftriaxone 2g IV daily, Azithromycin 500mg Suspect her sore throat is more laryngitis related to aspiration vs. post nasal drip versus from LMA or other anesthesia during procedure (2) Hypoxia: Plan: Hypoxia has resolved patient returned to room air (3) Chronic anticoagulation: Plan: Restart Eliquis 11/03/[address] Abdul's recommendations (4) Ovarian cancer: Plan: Noted history of such, 2018 (5) Hypertension: Plan: Continue atenolol Plan: VTE Prophylaxis - resume Eliquis day after procedure per prior Dr Abdul's myranda mmendations Admission and Anticipated Discharge Date Admission Date: November 02, 2021 Subjective pt states she feels much better than when she arrived, she is not quite at her baseline, she wishes to change primary care at discharge, mildly productive cough Review of Systems Review of Systems: Mild distress and fatigue no headache, no visual changes no speech or swallowing issues no chest pain, pressure or palpitations No shortness of breath cough productive of yellow mucus no abdominal pain, nausea or vomiting, no dysuria, hematuria or frequency no focal joint pain or swelling no back pain, CVA tenderness or radicular pain no bruising, bleeding or rashes no focal signs of weakness or numbness or altered sensation no complaints of anxiety or depression.. Physical Exam Physical Exam: The patient appeared well nourished and normally developed. Vital signs as documented. Head exam is normocephalic atraumatic Neck is without JVD, thyromegaly, or carotid bruits. Lungs are rhonchi at the left base otherwise are clear Cardiac exam, Rhythm is regular.. No murmurs, rubs or gallops. Abdominal exam reveals normal bowel sounds, soft non tender, no masses Extremities are nonedematous and both pedal pulses are present Neurologic exam is alert and oriented, no focal loss of strength or sensation Skin is without bruises or rashes Psychologically is without concerns for anxiety or depression.. Results & Data Results & Data ([facility]) Vital Signs (Past 12 Hours) Vital Signs Temp Pulse Resp BP Pulse Ox 11/03/21 15:23 98.4 F 87 20 116/67 90 11/03/21 07:48 99.5 F 81 20 130/75 95 11/03/21 07:10 81 18 94 PG Care Time/CCT Total # of Minutes Spent Total Time Spent with Patient: Total time spent is greater than 50% in coordination of care (as documented) at patient's floor/unit and/or counseling patient: Coding Level of Care Code 53654 Subseq Hosp Care Lvl 2 Diagnoses Community acquired bacterial pneumonia J15.9 Hypoxia R09.02 Chronic anticoagulation Z79.01 Ovarian cancer C56.9 Hypertension I10
[2021-11-03] MEDS: cefTRIAXone SODIUM 2,000 MG in DEXTROSE 5% 50 ML IV SCH (17:27)
[2021-11-03] MEDS: ATENOLOL 25 MG TABLET PO SCH (22:22)
[2021-11-03] MEDS: amLODIPine BESYLATE 5 MG TAB PO SCH (22:22)
[2021-11-04] MEDS: APIXABAN 2.5 MG TAB PO SCH ×2 (09:11→21:06)
[2021-11-04] MEDS: FAMOTIDINE 20 MG TAB PO SCH ×2 (09:12→21:06)
[2021-11-04] MEDS: AZITHROMYCIN 250 MG TAB PO SCH (09:12)
[2021-11-04] MEDS ORDERED: SODIUM CHLORIDE 0.65% NA SOLN 45 ML (OCEAN) ONE (09:40)
[2021-11-04] MEDS ORDERED: COUGH DROP (SUGAR FREE) LOZ 24 LOZ/1 BOX BUCCAL ONE (09:40)
[2021-11-04] MEDS ORDERED: COUGH DROP (SUGAR FREE) LOZ 24 LOZ/1 BOX BUCCAL STA (09:46)
[2021-11-04] MEDS ORDERED: SODIUM CHLORIDE 0.65% NA SOLN 45 ML (OCEAN) STA (09:48)
--- NOTE | 2021-11-04 15:50 | Hospitalist Progress Note ---
Date of Service November 04, 2021 Assessment & Plan (1) Community acquired bacterial pneumonia: Plan: Not suspected to have aspirated during procedure Covering for community-acquired pneumonia with Ceftriaxone 2g IV daily, Azithromycin 500mg Suspect her sore throat is more laryngitis related to aspiration vs. post nasal drip versus from LMA or other anesthesia during procedure Patient still with progressive laryngitis we will check a bio fire look for viral etiologies which could explain both her chest and her loss of voice (2) Hypoxia: Plan: Hypoxia has resolved patient returned to room air, remains without need of support (3) Chronic anticoagulation: Plan: Restart Eliquis 11/03/[address] Abdul's recommendations (4) Ovarian cancer: Plan: Noted history of such, 2017 (5) Hypertension: Plan: Continue atenolol Plan: VTE Prophylaxis - resume Eliquis day after procedure per prior Dr Abdul's recommendations Admission and Anticipated Discharge Date Admission Date: November 02, 2021 Subjective Patient is feeling a bit worse today having a scratchy sore throat, laryngitis, and nonproductive coughing. He however is not hypoxic and oxygen levels have actually been better than they were yesterday Review of Systems Review of Systems: Mild distress and fatigue no headache, no visual changes Laryngitis is present no chest pain, pressure or palpitations no shortness of breath, occasionally productive cough no abdominal pain, nausea or vomiting, diarrhea or constipation no dysuria, hematuria or frequency no focal joint pain or swelling no back pain, CVA tenderness or radicular pain no bruising, bleeding or rashes no focal signs of weakness or numbness or altered sensation no complaints of anxiety or depression.. Physical Exam Physical Exam: The patient appeared well nourished and normally developed. Vital signs as documented. Head exam is normocephalic atraumatic He has hoarse voice but oropharynx is without changes I also looked at her tympanic membranes of likely some changes of chronic sinus being some clear fluid behind her tympanic membrane Neck is without JVD, thyromegaly, or carotid bruits. Lungs are rhonchi at the left base Cardiac exam, Rhythm is regular.. No murmurs, rubs or gallops. Abdominal exam reveals normal bowel sounds, soft non tender, no masses Extremities are nonedematous and both pedal pulses are present Neurologic exam is alert and oriented, no focal loss of strength or sensation Skin is without bruises or rashes Psychologically is without concerns for anxiety or depression.. Results & Data Results & Data ([facility]) Vital Signs (Past 12 Hours) Vital Signs Temp Pulse Resp BP Pulse Ox 11/04/21 07:30 99.1 F 77 18 126/70 95 PG Care Time/CCT Total # of Minutes Spent Total Time Spent with Patient: Total time spent is greater than 50% in coordination of care (as documented) at patient's floor/unit and/or counseling patient: Coding Level of Care Code 85118 Subseq Hosp Care Lvl 2 Diagnoses Community acquired bacterial pneumonia J15.9 Hypoxia R09.02 Chronic anticoagulation Z79.01 Ovarian cancer C56.9 Hypertension I10
[2021-11-04 15:59] LABS: Adenovirus PCR Not Detected (NotDetected); Bordetella parapertussis PCR Not Detected (NotDetected); Bordetella pertussis PCR Not Detected (NotDetected); Chlamydia pneumoniae PCR Not Detected (NotDetected); Coronavirus 229E PCR Not Detected (NotDetected); Coronavirus CoV-2 (COVID19)PCR Not Detected (NotDetected); Coronavirus HKU1 PCR Not Detected (NotDetected); Coronavirus NL63 PCR Not Detected (NotDetected); Coronavirus OC43PCR Not Detected (NotDetected); Human Metapneumovirus PCR Not Detected (NotDetected); Influenza A PCR Not Detected (NotDetected); Influenza B PCR Not Detected (NotDetected); Mycoplasma pneumoniae PCR Not Detected (NotDetected); Parainfluenza Virus 1 PCR Not Detected (NotDetected); Parainfluenza Virus 2 PCR Not Detected (NotDetected); Parainfluenza Virus 3 PCR Not Detected (NotDetected); Parainfluenza Virus 4 PCR Not Detected (NotDetected); Respiratory Syncytial VirusPCR Not Detected (NotDetected); Rhinovirus/Enterovirus PCR Not Detected (NotDetected)
[2021-11-04] MEDS: cefTRIAXone SODIUM 2,000 MG in DEXTROSE 5% 50 ML IV SCH (16:32)
[2021-11-04] MEDS: amLODIPine BESYLATE 5 MG TAB PO SCH (21:05)
[2021-11-04] MEDS: ATENOLOL 25 MG TABLET PO SCH (21:07)
[2021-11-05] MEDS: FAMOTIDINE 20 MG TAB PO SCH (09:29)
[2021-11-05] MEDS: APIXABAN 2.5 MG TAB PO SCH (09:29)
[2021-11-05] MEDS ORDERED: CEFDINIR 300 MG CAP PO STA (11:32)
[2021-11-05] MEDS ORDERED: AZITHROMYCIN 250 MG TAB PO ONE (11:32)
--- NOTE | 2021-11-05 12:49 | Discharge Summary ---
Date of Service November 05, 2021 Principal Diagnosis left lower lobe pneumonia acute hypoxic respiratory failure Discharge Exam The patient appeared well Vital signs as documented. Lungs are clear to auscultation and appear unlabored Cardiac exam, Rhythm is regular.. No murmurs, rubs or gallops. Abdominal exam reveals normal bowel sounds, soft non tender, no masses Extremities are nonedematous and both pedal pulses are normal. Neurologic exam is alert and oriented, no focal loss of strength or sensation Skin is without bruises or rashes Psychologically is without concerns for anxiety or depression. [place] couple years ago Discharge Data Allergies Allergy/AdvReac Type Severity Reaction Status Date / Time erythromycin base Allergy Intermediate GI UPSET Verified 11/02/21 11:47 ciprofloxacin Allergy Mild itching Verified 11/02/21 11:47 moxifloxacin Allergy Mild itching Verified 11/02/21 11:47 Penicillins Allergy Mild Rash Verified 11/02/21 11:47 psyllium Allergy Mild HIVES Verified 11/02/21 11:47 Sulfa (Sulfonamide Allergy Mild Rash Verified 11/02/21 11:47 Antibiotics) doxycycline AdvReac Mild Gastrointestinal Verified 11/02/21 11:47 Upset dicyclomine AdvReac Unknown Unknown Verified 11/02/21 11:47 Procedures Performed Operation Date: 11/02/21 12:55 Actual Procedures p Colonoscopy Polypectomy - Artur Faye Case, DO Hospital Course (1) Community acquired bacterial pneumonia: Not suspected to have aspirated during procedure Covering for community-acquired pneumonia with Ceftriaxone 2g IV daily, will complete home cefdinir Azithromycin 500mg will complete home azithromycin Suspect her sore throat is more laryngitis related to aspiration vs. post nasal drip versus from LMA or other anesthesia during procedure Patient still with progressive laryngitis she had a negative bio fire laryngitis is improving (2) Hypoxia: Hypoxia has resolved patient returned to room air, remains without need of support (3) Chronic anticoagulation: Restart Eliquis 11/03/[address] Abdul's recommendations (4) Ovarian cancer: Noted history of such, 2018 (5) Hypertension: Continue atenolol VTE Prophylaxis - resume Eliquis day after procedure per prior Dr Abdul 's recommendations Total Time Total Time Spent Total Time Spent (In Minutes): it required greater than 30 minutes to prepare this patient for discharge Discharge Plan Discharge Items Patient Disposition: Home - Self-Care Reason For Visit: HYPOXIA S/P COLONOSCOPY Discharge Diagnosis: Colon polyp Diverticulosis Internal hemorrhoids Activity: Resume your previous activity Non-emergency contact: Primary Care Provider Call non-emergency contact if: your pain is concerning for you and your temperature is above 101 Follow-up/Referrals: Veronica Gonzalez CRNP [Primary Care Provider] - (NO F/U NEEDED; SWITCHNG PCP) Bogdan Jackman DO [Physician] - 11/09/21 8:00 am ([facility] [address] [employer], new primary care provider) Diet: Regular Addtl Attending Provider Instructions: IF YOU EXPERIENCE ANY OF THE FOLLOWING SYMPTOMS AFTER YOUR PROCEDURE CALL YOUR PRIMARY CARE PHYSICIAN IMMEDIATELY OR SEEK MEDICAL ATTENTION AT YOUR NEAREST EMERGENCY ROOM: 1. SEVERE abdominal pain or bloating 2. FEVER greater than 101.1 degrees within 24 hours after the procedure 3. LARGE AMOUNTS OF BLEEDING greater than 2-3 tablespoons. If you had a polyp/s removed or have hemorrhoids, a small amount of blood from the rectum is to be expected. 4. A localized irritation of the vein may occur at the site of the IV injection. Hot moist packs to the vein applied 4-6 times per day may reduce pain and irritation. A tender lump may develop and remain for several weeks to several months, but goes away eventually. If the area continues to be painful or becomes red and hot to the touch. For routine questions call [facility] at [phone]. * Avoid the use of alcohol and sedatives for 24 hours. Pending Studies at Discharge: No Stand-Alone Forms: My [facility], Smoking Cessation Medications and DC Order Prescriptions: New cefdinir 300 mg capsule 300 mg PO BID 5 Days Qty: 10 RF: 0 azithromycin 250 mg tablet 250 mg PO DAILY 3 Days Qty: 3 RF: 0 fluconazole [Diflucan] 150 mg tablet 150 mg PO DAILY Qty: 1 RF: 2 Continued albuterol sulfate 90 mcg/actuation HFA aerosol inhaler 1 inh inhalation QID PRN (Reason: shortness of breath or wheezing) Qty: 8.5 RF: 0 hyoscyamine sulfate 0.125 mg tablet, sublingual 0.125 mg PO Q4H PRN (Reason: Dyspepsia) Qty: 90 RF: 3 famotidine 20 mg tablet 20 mg PO BID Qty: 180 RF: 3 amlodipine 5 mg tablet 5 mg PO HS Qty: 90 RF: 3 Eliquis 5 mg tablet 2.5 mg PO Q12H Qty: 90 RF: 3 atenolol 25 mg tablet 25 mg PO HS Qty: 30 RF: 11 Osteo Bi-Flex Triple Strength 750 mg-644 mg- 30 mg-1 mg tablet 1 tab PO QAM RF: 0 cholecalciferol (vitamin D3) 2,000 unit tablet 4,000 units PO QAM RF: 0 calcium citrate 200 mg (950 mg) tablet 200 mg PO QAM RF: 0 azelastine 137 mcg (0.1 %) aerosol,spray 2 spray intranasal BID Qty: 30 RF: 2 acetaminophen [Tylenol Extra Strength] 500 mg Tablet 500 - 1,000 mg PO DIRECTED PRN (Reason: Fever Or Pain) RF: 0 pyridoxine (vitamin B6) [Vitamin B-6] 100 mg Tablet 100 mg PO QAM RF: 0 [place] Saline 0.65 % Aerosol,[place] 1 spray Intranasal Q8 PRN (Reason: Dry Nasal Passages) RF: 0 Probiotic 10 billion cell Capsule 1 cap PO QAM RF: 0 jokxshktrstm-sxkyxbic-oykjzj Tablet 1 tab PO QAM RF: 0 pseudoephedrine-guaifenesin [Mucinex D] 60-600 mg Tablet Extended Release 12 Hr 1 tab PO DAILY PRN (Reason: Congestion) RF: 0 Discontinued Sutab 1.479-0.188- 0.225 gram tablet See Rx Instructions PO .COMPLEX Qty: 24 RF: 0 Discharge Orders: Discharge Order (Routine); Ordered 11/05/21 Ordered By: Wisam Bustos/Other Patient Handouts: Zithromax Oral Tablet 250 mg, Cefdinir Oral Capsule 300 mg, When You Have Pneumonia Admission Data Admit Date/Time: 11/02/21 14:54 Attending Provider: Wisam Mancia Admit Provider: Murali Arias Primary Care Provider: Veronica Gonzalez Other Interventions: Discharge Summary Assessment (RN) Last Done: 11/05/21 11:43 Coding Level of Care Code D/C DAY MANAGEMENT >30 MINS Diagnoses Community acquired bacterial pneumonia J15.9 Hypoxia R09.02 Chronic anticoagulation Z79.01 Ovarian cancer C56.9 Hypertension I10
== END 2021-11-05 15:00 | disposition home or self-care (01) ==
LOC: 3N 11:25 → ENDO 11:25 → SUATTDRO 14:54